=== PATIENT | female | born 1960 | race Caucasian/White ===

== ENCOUNTER → 2019-11-19 15:04 | Outpatient (CLI) | payer OTHER, SELFPAY ==
--- NOTE | ~2019-11-19 | MM_ITS ---
EXAMINATION: MM screening rodney BI w scott HISTORY: Screening mammogram TECHNIQUE: Craniocaudal and mediolateral oblique 3-D tomosynthesis images were obtained and synthetic 2-D images were generated. CAD analysis was submitted and interpreted. COMPARISON: 09/05/2018, 08/03/2017, 07/08/2016 bilateral digital screening mammogram examinations BREAST PARENCHYMAL COMPOSITION: The breasts are heterogeneously dense, which may obscure small masses . FINDINGS: Suggestion of possible architectural distortion in the upper aspect of each breast on MLO v iews. Recommend diagnostic bilateral mammogram and ultrasound examination. IMPRESSION: 1. Possible architectural distortion and upper aspect of breasts on MLO views 2. Diagnostic bilateral mammogram and ultrasound examination are recommended. BI-RADS Category 0: Incomplete: Needs additional imaging evaluation. Reviewed, dictated and finalized at location A.
== END ==
PROVIDERS: PCP Internal Medicine; Visit Provider Nurse Practitioner
DX: Z12.31 Encounter for screening mammogram for malignant neoplasm of breast (principal); R92.8 Other abnormal and inconclusive findings on diagnostic imaging of breast
CPT/HCPCS: 77063; 77067

== ENCOUNTER → 2019-12-09 08:29 | Outpatient (CLI) | payer OTHER, SELFPAY ==
--- NOTE | ~2019-12-09 | MMUS_ITS ---
EXAMINATION: MM diagnostic mammo BI, US breast BI complete HISTORY: Possible architectural distortion in upper aspect of the breasts on MLO projections on scree cameron mammogram of 11/19/2019 TECHNIQUE: Additional 3-D tomosynthesis images of both breasts were performed and synthetic 2-D image s were generated. CAD analysis was submitted and interpreted. High resolution bilateral complete [facility] [facility] ultrasound was performed. COMPARISON: 11/19/2019 bilateral digital screening mammogram FINDINGS: MAMMOGRAPHIC FINDINGS: Possible focal spiculated opacity is suggested in the upper inner left breast on MLO Tomosynthesis im age [age]. There is a history of prior benign excisional biopsy of the left breast in 2012. Scattered bilateral benign appearing calcifications. ULTRASOUND: Right breast: 2.4 mm cyst at 7:00 4 cm from nipple. Otherwise unremarkable examination of right breast Left breast: 1:00 2.5 cm from nipple: 3.4 x 5 x 6 mm cyst 3:00 5 cm from nipple: 3.4 x 4.6 mm cyst 3:00 5 cm from nipple: Small probable lymph node 4:00 4 cm from nipple: 2.4 x 2.9 x 3.4 mm cyst with through transmission and posterior enhancement IMPRESSION: 1. Probable postbiopsy change in the upper inner left breast 2. 6 month diagnostic left mammogram and left breast ultrasound follow-up are recommended. BI-RADS category 3, probably benign findings. Reviewed, dictated and finalized at location A. IMPRESSION: 1. Probable postbiopsy change in the upper inner left breast 2. 6 month diagnostic left mammogram and left breast ultrasound follow-up are r ecommended. BI-RADS category 3, probably benign findings.
== END ==
PROVIDERS: Visit Provider Obstetrics & Gynecology Gynecology
DX: R92.8 Other abnormal and inconclusive findings on diagnostic imaging of breast (principal)
CPT/HCPCS: 76641; 77066

== ENCOUNTER → 2020-06-15 14:10 | Outpatient (CLI) | payer OTHER, SELFPAY ==
--- NOTE | ~2020-06-15 | MMUS_ITS ---
EXAMINATION: MM diagnostic rodney LT w scott, US breast LT limited HISTORY: Six-month follow-up for probably benign left breast architectural distortion and masses TECHNIQUE: Craniocaudal, mediolateral, and mediolateral oblique 3-D tomosynthesis images of the left breast were performed and synthetic 2-D images were generated. CAD analysis was submitted and interpr eted. High resolution limited left breast ultrasound was performed. COMPARISON: 12/09/2019, 11/19/2019, 09/05/2018, 08/03/2017, 07/08/2016 BREAST PARENCHYMAL COMPOSITION: The breasts are heterogeneously dense, which may obscure small masses . FINDINGS: MAMMOGRAPHIC FINDINGS: Scattered benign-appearing calcifications are present. There is no evidence of suspicious mass, calci fication, or architectural distortion to suggest malignancy. There has been no suspicious interval c hange. ULTRASOUND: There are multiple hypoechoic masses in the upper outer quadrant of the breast which are stable to de creased in size. A 4 mm mass at the 4:00 location previously measured 3 mm but has an appearance chandrika lar to the other masses and is probably benign. IMPRESSION: 1. Probably benign left breast masses. 2. Recommend 6 month follow-up left diagnostic mammogram and ultrasound. BI-RADS category 3, probably benign findings. Reviewed, dictated and finalized at location A. FCASE SEWER IMPRESSION: 1. Probably benign left breast masses. 2. Recommend 6 month follow-up left diagnostic mammogram and ultrasound. BI-RADS category 3, probably benign findings.
== END ==
PROVIDERS: Visit Provider Obstetrics & Gynecology Gynecology
DX: R92.8 Other abnormal and inconclusive findings on diagnostic imaging of breast (principal)
CPT/HCPCS: 76642; 77061; 77065; G0279

== ENCOUNTER → 2020-06-19 00:11 | Outpatient (CLI) | payer OTHER, SELFPAY ==
[2020-06-19 22:51] LABS: SARS-CoV-2 RNA PCR Negative
== END ==
PROVIDERS: PCP Internal Medicine; Visit Provider Internal Medicine Gastroenterology
DX: Z01.812 Encounter for preprocedural laboratory examination (principal); Z20.822 Contact with and (suspected) exposure to COVID-19; R68.89 Other general symptoms and signs
CPT/HCPCS: C9803; U0003; U0005

== ENCOUNTER 2020-06-22 01:01 | Day surgery (SDC) | payer OTHER, SELFPAY ==
[2020-06-09 15:57] VITALS: BMI 28.9
[2020-06-22 06:30] VITALS: BP 137/85; PULSE 75; RESP 16; TEMP 36.2; O2SAT 100; BMI 28.0
[2020-06-22] MEDS: LACTATED RINGERS 1,000 ML 150 ML IV CONT (06:45)
--- NOTE | 2020-06-22 07:34 | WPDANESEPPF ---
Anes - Initial Pre Proc Eval Procedure: Operation Date: 06/22/20 08:00 Proposed Procedures p Screening Colonoscopy - Piero Chu MD Date/Time: 06/22/20 07:34 Surgeon: Piero Chu MD Pre Op Diagnosis: neoplasm screening, hx of colon polyps Patient Data Age: 60 Gender: F Height: 5 ft 6 in Weight: 78.9 kg Last Vital Signs Temp 97.1 F L 06/22/20 06:30 Pulse 75 06/22/20 06:30 Resp 16 06/22/20 06:30 BP 137/85 06/22/20 06:30 Pulse Ox 100 06/22/20 06:30 Allergies Allergy/AdvReac Type Severity Reaction Status Date / Time pollen extracts Allergy Mild Sneezing Verified 06/22/20 06:29 Home Medications Medication Instructions Recorded Confirmed Type cetirizine 10 mg tablet 10 mg PO DAILY 07/11/19 06/22/20 History lansoprazole 15 mg capsule,delayed 15 mg PO DAILY 07/11/19 06/22/20 History release omega-3 fatty acids 1,000 mg 1,000 mg PO DAILY 07/11/19 06/22/20 History capsule atorvastatin 20 mg tablet 20 mg PO DAILY #90 tablet 02/20/20 06/22/20 Rx sodium,potassium,mag sulfates See Rx Instructions .ROUTE 05/06/20 06/08/20 Rx [Suprep Bowel Prep Kit] .COMPLEX #1 ml levothyroxine 112 mcg tablet 112 mcg PO DAILY #90 tablet 05/20/20 06/22/20 Rx ascorbic acid (vitamin C) 1 g PO DAILY 06/09/20 06/22/20 History estradiol 0.5 mg PO DAILY 06/09/20 06/22/20 History medroxyprogesterone 2.5 mg PO DAILY 06/09/20 06/22/20 History uniuqdlbiwxm-Ax-jeyo-minerals 1 tablet PO DAILY 06/09/20 06/22/20 History [Women's Daily Multivitamin] Patient hx anesthesia problems: none Family hx anesthesia problems: none PMFSH Past Medical History Medical History (Updated 06/08/20 @ 11:00 by Misael Gilliam DO) Basal cell carcinoma Skin cancer Surgical History Surgical History Status post full thickness skin graft Family History Family History Sibling Malignant neoplasm of prostate Mother Family history of malignant neoplasm of breast in first degree relative Father Family history of coronary artery disease, Onset Age: 39 Acute myocardial infarction Other Family history of malignant neoplasm Social History Social History Smoking packs per day: 0.5 Smoking cigarettes per day: 10.0 Years smoked: 10 Smoking pack-years: 5.00 Smoking status: Former smoker Tobacco type: cigarettes Alcohol intake: current Drinks per week: 3 Alcohol use details: WINE Substance use: never Substance use type: does not use Living arrangements: with family Spiritual care concerns: No Anes - Eval Final PreProcedure Day of Procedure 06/22/20 07:34 Patient weight: overweight Heart: regular rate and rhythm Lungs: clear to auscultation Airway: Mallampati scale class II Neurological: alert and oriented Last oral intake: >/= 8 hours ASA classification: III Emergent: no Anesthetic plan: proceed Anesthesia type and monitoring: general GIVS and standard monitoring Informed Consent: The patient's anesthetic plan and its attendant risks and benefits were discussed with the patient/family/POA. Questions were solicited and answers provided to the satisfaction of the patient/family/POA.
--- NOTE | 2020-06-22 08:08 | PM.HPGS ---
History of Present Illness History of Present Illness Consent: Risks, benefits, and alternatives have been discussed and questions answered. Patient agrees to proceed with procedure. Chief complaint: neoplasm screening, hx of colon polyps Narrative: Addis Crockett is a 60 year old female with history of colon polyps, last colonoscopy 2016 Review of Systems Constitutional: Constitutional: Denies headache(s) and Denies weakness Eyes: Eyes: Denies blurry vision ENT: Reports Normal hearing present, Denies headache(s) and Denies neck pain Cardiovascular: Cardiovascular: Denies chest pain and Denies dyspnea Respiratory: Respiratory: Denies dyspnea Gastrointestinal: Gastrointestinal: Reports no additional gastrointestinal complaints Genitourinary: Genitourinary: Denies dysuria Musculoskeletal: Musculoskeletal: Denies neck pain Integumentary/Breasts: Skin/Breast: Denies dry skin Neurologic: Reports Normal hearing present, Denies headache(s) and Denies weakness Psychiatric: Psychiatric: Denies anxiety Endocrine: Endocrine: Denies change in body appearance Hematologic/Lymphatic: Hematologic/Lymphatic: Denies easy bleeding Allergic/Immunologic: Allergic/Immunologic: Denies urticaria PMF Past Medical History Medical History (Updated 06/22/20 @ 08:09 by Piero Chu MD) Adenomatous colon polyp Basal cell carcinoma Skin cancer Surgical History Surgical History Status post full thickness skin graft Family History Family History Sibling Malignant neoplasm of prostate Mother Family history of malignant neoplasm of breast in first degree relative Father Family history of coronary artery disease, Onset Age: 39 Acute myocardial infarction Other Family history of malignant neoplasm Social History Social History Smoking packs per day: 0.5 Smoking cigarettes per day: 10.0 Years smoked: 10 Smoking pack-years: 5.00 Smoking status: Former smoker Tobacco type: cigarettes Alcohol intake: current Drinks per week: 3 Alcohol use details: WINE Substance use: never Substance use type: does not use Living arrangements: with family Spiritual care concerns: No Meds Home Medications and Allergies Home Medications Medication Instructions Recorded Confirmed Type cetirizine 10 mg tablet 10 mg PO DAILY 07/11/19 06/22/20 History lansoprazole 15 mg capsule,delayed 15 mg PO DAILY 07/11/19 06/22/20 History release omega-3 fatty acids 1,000 mg 1,000 mg PO DAILY 07/11/19 06/22/20 History capsule atorvastatin 20 mg tablet 20 mg PO DAILY #90 tablet 02/20/20 06/22/20 Rx sodium,potassium,mag sulfates See Rx Instructions .ROUTE 05/06/20 06/08/20 Rx [Suprep Bowel Prep Kit] .COMPLEX #1 ml levothyroxine 112 mcg tablet 112 mcg PO DAILY #90 tablet 05/20/20 06/22/20 Rx ascorbic acid (vitamin C) 1 g PO DAILY 06/09/20 06/22/20 History estradiol 0.5 mg PO DAILY 06/09/20 06/22/20 History medroxyprogesterone 2.5 mg PO DAILY 06/09/20 06/22/20 History apjaismpqdhg-On-rbzv-minerals 1 tablet PO DAILY 06/09/20 06/22/20 History [Women's Daily Multivitamin] Allergies Allergy/AdvReac Type Severity Reaction Status Date / Time pollen extracts Allergy Mild Sneezing Verified 06/22/20 06:29 Vital Signs Vital Signs - 24 hr 06/22/20 06:30 Temperature 97.1 F L Pulse Rate 75 Respiratory Rate 16 Blood Pressure 137/85 Pulse Oximetry 100 Exam Const: General: comfortable and no acute distress HENMT: General nose exam: Normal nares present Eyes: General: appearance normal, both eyes and all related structures Neck: Neck: no JVD Resp: Auscultation: clear to auscultation bilaterally Cardio: Rate: regular rate Rhythm: regular rhythm GI: Inspection: non-distended GI Palp: Yes Soft to palpation S
[2020-06-22 08:38] VITALS: BP 102/67; PULSE 64; RESP 20; O2SAT 100
[2020-06-22 08:48] VITALS: BP 108/66; PULSE 61; RESP 19; O2SAT 100
[2020-06-22 08:58] VITALS: BP 123/73; PULSE 60; RESP 19; O2SAT 100
== END 2020-06-22 09:10 | disposition home or self-care (01) ==
PROVIDERS: PCP Internal Medicine; Visit Provider Internal Medicine Gastroenterology
PROC: 0DJD8ZZ Inspection of Lower Intestinal Tract, Via Natural or Artificial Opening Endoscopic (ICD-10-PCS; CPT 45378; principal; 2020-06-22 08:00)
DX: Z12.11 Encounter for screening for malignant neoplasm of colon (principal); D12.2 Benign neoplasm of ascending colon; D12.0 Benign neoplasm of cecum; D12.8 Benign neoplasm of rectum; K57.30 Diverticulosis of large intestine without perforation or abscess without bleeding; Z87.891 Personal history of nicotine dependence
CPT/HCPCS: 45385; 88305; C9803; J2001; J2704; J7120; U0003; U0005

== ENCOUNTER → 2020-12-11 08:26 | Outpatient (CLI) | payer OTHER, SELFPAY ==
--- NOTE | ~2020-12-11 | MMUS_ITS ---
EXAMINATION: MM diagnostic rodney BI w scott, US breast LT limited HISTORY: Six-month follow-up for probably benign left breast masses TECHNIQUE: Craniocaudal, mediolateral, and mediolateral oblique 3-D tomosynthesis images of the idris ts were performed and synthetic 2-D images were generated. CAD analysis was submitted and interpreted . High resolution limited left breast ultrasound was performed. COMPARISON: 06/15/2020, 12/09/2019, 11/19/2019, 09/05/2018 BREAST PARENCHYMAL COMPOSITION: The breasts are heterogeneously dense, which may obscure small masses . FINDINGS: MAMMOGRAPHIC FINDINGS: There is no evidence of suspicious mass, calcification, or architectural distortion in either breast to suggest malignancy. There has been no suspicious interval change. ULTRASOUND: There are multiple stable hypoechoic masses in the upper outer quadrant of the breast. The previously described mass at the 4:00 location is no longer evident. IMPRESSION: 1. Stable, probably benign left breast masses. 2. Given one year of interval stability, recommend 12 month followup left diagnostic mammogram and ul trasound. BI-RADS category 3, probably benign findings. Reviewed, dictated and finalized at location A. IMPRESSION: 1. Stable, probably benign left breast masses. 2. Given one year of interval stability, recommend 12 month followup left diagn ostic mammogram and ultrasound. BI-RADS category 3, probably benign findings.
== END ==
PROVIDERS: PCP Internal Medicine; Visit Provider Obstetrics & Gynecology Gynecology
DX: R92.8 Other abnormal and inconclusive findings on diagnostic imaging of breast (principal)
CPT/HCPCS: 76642; 77062; 77066; G0279

== ENCOUNTER → 2021-05-08 01:22 | Outpatient (CLI) | payer OTHER, SELFPAY ==
[2021-05-08 23:19] LABS: SARS-CoV-2 RNA PCR Positive
== END ==
PROVIDERS: PCP Internal Medicine; Visit Provider Internal Medicine
DX: U07.1 COVID-19 (principal)
CPT/HCPCS: C9803; U0003; U0005

== ENCOUNTER 2021-08-25 09:00 | Outpatient (RCR) | payer OTHER, SELFPAY ==
--- NOTE | 2021-07-30 13:40 | PTOPEVAL ---
PHYSICAL THERAPY INITIAL EVALUATION. Thank you for referring Addis Crockett to [facility].? The patient is scheduled to be seen for therapy? 1x/week for 4 weeks. Please review, sign, date and return this plan of care NEISHA. I agree with and certify that the following plan of care is medically necessary. Referring Physician Date Attending Provider: Misael Gilliam, DO Evaluation Information Diagnosis Neck pain Onset 2+ years Subjective Information Pt states she has nerve pain Query Text:As Reported By Patient/ that is centralized to the Family cervical spine and shoulder on the R side. She denies numbness or tingling, or any symptoms into her hand. 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 Pt reports headaches semi frequently but cannot differentiate the difference between cervicogenic headaches compared to sinus pressure. She reports achy feeling in the arm and shoulder with repetitive movement, like mixing fudge. Pain Assessment Right Neck Reported Pain Level 4 Pain Description Aching,Tightness Pain Radiation Right Arm,Right Shoulder Pain Frequency Chronic Lowest Pain Intensity 1 Greatest Pain Intensity 4 Other Pain Aggravating Factors mixing while baking Cervical and Lumbar ROM Cervical Flexion (0-60) 38 active Cervical Extension (0-70) 22 active Cervical Lateral Flexion Right (0-50) 32 active Cervical Lateral Flexion Right (0-50) 45 passive Cervical Lateral Flexion Left (0-50) 25 active Cervical Lateral Flexion Left (0-50) 45 passive Cervical Rotation Right (0-90) 72 active Cervical Rotation Left (0-90) 68 active Cervical ROM 75% of Normal Cervical ROM Comments cues to avoid shoulder elevation during lateral flexion Upper Extremity Range of Motion General Upper Extremity Range of Motion WFL/Left,WFL/Right Gross Upper Extremity Range of Motion Equal on both side, mildly Comments limited but functional Upper Extremity Muscle Strength Testing General Upper Extremity Strength WFL/Left,WFL/Right Gross Upper Extremity Strength Comments Equal on both side, mildly limited but functional Po
--- NOTE | 2021-08-25 10:15 | PTOPEVAL ---
PHYSICAL THERAPY PROGRESS REPORT AND DISCHARGE SUMMARY. Thank you for referring Addis Crockett to [facility].? The patient is scheduled to be discharge from therapy services at this time. Please review, sign, date and return this plan of care NEISHA. I agree with and certify that the following plan of care is medically necessary. Referring Physician Date Attending Provider: Misael Gilliam, Evaluation Information Diagnosis Neck pain Onset 2+ years Subjective Information Pt states her arm and neck are Query Text:As Reported By Patient/ feeling better. She states Family her arm will still get sore sometimes but this had decreased. She reports good compliance with her HEP. Pt states her headaches have improved a lot. Pain Assessment Right Neck Reported Pain Level 3 Greatest Pain Intensity 4 Cervical and Lumbar ROM Cervical ROM Cervical Flexion (0-60) 47 active Cervical Extension (0-70) 40 active Cervical Lateral Flexion Right (0-50) 32 active Cervical Lateral Flexion Right (0-50) 45 passive Cervical Lateral Flexion Left (0-50) 26 active Cervical Lateral Flexion Left (0-50) 45 passive Cervical Rotation Right (0-90) 74 active Cervical Rotation Left (0-90) 70 active Cervical ROM 75% of Normal Cervical ROM Comments cues to avoid shoulder elevation during lateral flexion Upper Extremity Range of Motion General Upper Extremity Range of Motion WFL/Left,WFL/Right Gross Upper Extremity Range of Motion Equal on both side, mildly Comments limited but functional Upper Extremity Muscle Strength Testing General Upper Extremity Strength WFL/Left,WFL/Right Gross Upper Extremity Strength Comments Equal on both side, mildly limited but functional Posture Head/C-Spine Posture Forward Head Thoracic Spine Posture Neutral Lumbar Spine Posture Neutral Shoulder Posture (L) Forward,(R) Forward PT Clinical Summary Addis presents to therapy today for her progress report following 4 visits of skilled physical therapy. Today she reports decreased frequency and intensity of headaches, improvement in cervical ROM, and improved postural awareness. She is progressing well with all of her therapy goals and would like to
== END 2021-08-26 09:24 | disposition home or self-care (01) ==
LOC: ANHPT 09:00
PROVIDERS: PCP Internal Medicine; Referring Provider Internal Medicine; Visit Provider Internal Medicine
DX: M54.2 Cervicalgia (principal); G89.29 Other chronic pain; E78.5 Hyperlipidemia, unspecified; Z79.899 Other long term (current) drug therapy
CPT/HCPCS: 97110; 97140; 97161

== ENCOUNTER → 2022-03-01 07:56 | Outpatient (CLI) | payer OTHER, SELFPAY ==
--- NOTE | ~2022-03-01 | MMUS_ITS ---
EXAMINATION: MM diagnostic rodney BI w scott, US breast BI complete HISTORY: 12 month follow-up is stable probably benign left breast masses TECHNIQUE: Full field and spot ML, MLO and CC 3-D tomosynthesis images of both breasts were performed and synthetic 2-D images were generated. CAD analysis was submitted and interpreted. High resolution complete bilateral breast ultrasound examination including all 4 quadrants and subareolar areas was performed. COMPARISON: 12/11/2020 bilateral diagnostic mammography and limited left breast ultrasound 06/15/2020 diagnostic left mammogram and limited left breast ultrasound 12/09/2019 bilateral diagnostic mammography and bilateral complete breast ultrasound 11/19/2019, 09/05/2018 bilateral screening mammogram examinations BREAST PARENCHYMAL COMPOSITION: The breasts are heterogeneously dense, which may obscure small masses . FINDINGS: MAMMOGRAPHIC FINDINGS: There are numerous microcalcifications scattered in both breasts, including occasional calcified micr ohematomas and numerous punctate benign appearing microcalcifications. No suspicious reproducible mass, architectural distortion, malignant calcification, skin thickening o r retraction is detected. No significant new or developing density is identified. ULTRASOUND: No suspicious irregular mass or shadowing of either breast is noted. Right breast: 3:00 3 cm from nipple: 4.2 x 4.1 x 4.7 mm circumscribed hypoechoic lesion without posterior shadowing Left breast: 2:00 3 cm from nipple: 2.8 x 3.1 mm sonolucency 3:00 6 cm from nipple: Circumscribed 3.4 x 3.8 mm hypoechoic lesion without posterior shadowing 10:00 5 cm from nipple: 3.2 x 2.2 mm sonolucency without posterior shadowing Subareolar area: 5.6 x 4.9 x 4.2 mm sonolucency with through transmission, consistent with small cyst IMPRESSION: 1. Probable benign findings 2. 6 month bilateral follow-up ultrasound examination is recommended to document stability BI-RADS category 3, probably benign findings. Reviewed, dictated and finalized at location A. TENDER IMPRESSION: 1. Probable benign findings 2. 6 month bilateral follow-up ultrasound examination is recommended to documen t stability BI-RADS category 3, probably benign findings.
== END ==
PROVIDERS: PCP Internal Medicine; Visit Provider Obstetrics & Gynecology Gynecology
DX: R92.8 Other abnormal and inconclusive findings on diagnostic imaging of breast (principal)
CPT/HCPCS: 76641; 77062; 77066; G0279

== ENCOUNTER → 2022-06-02 08:55 | Outpatient (CLI) | payer OTHER, SELFPAY ==
--- NOTE | ~2022-06-02 | DEXA_ITS ---
Bone Density Report Name: FELIZ GUERRERO Age: 62 Sex: Female Ethnicity: White Date of : 1960 Indication: postmenopausal; screening for osteoporosis; height loss; Referring Provider: Chago, Caron Study: Bone densitometry was performed. Exam Date: June 02, 2022 Accession number: [id number] Bone Density: Region BMD T-score Z-score Classification AP Spine (L1-L4) 0.971 -0.7 0.8 Normal Femoral Neck (Left) 0.711 -1.2 0.1 Osteopenia Total Hip (Left) 1.020 0.6 1.6 Normal Femoral Neck (Right) 0.752 -0.9 0.5 Normal Total Hip (Right) 0.999 0.5 1.5 Normal Total Hip Mean 1.010 0.6 1.6 Normal World Health Organization criteria for BMD impression classify patients as: Normal (T-score at or above -1.0), Osteopenia (T-score between -1.0 and -2.5), or Osteoporosis (T-score at or below -2.5). 10-year Fracture Risk(1): Major Osteoporotic Fracture 7.4% Hip Fracture 0.5% Reported Risk Factors: [place] (), Neck BMD=0.711, BMI=29.9 (1) FRAX(R) Version 3.08. Fracture probability calculated for an untreated patient. Fracture probability may be lower if the patient has received treatment. Clinical Information Provided by Patient: Has used the following medications: HRT (i.e. estrogen/hormone therapy), MTV, LEVOTHYROXINE Patient maximum height was 67.0 Menopause Age: 49 Drinks caffeinated beverages Onset of menses at age 14 Number of children 0 Impression: The patient has low bone mass, based on the Left Femoral Neck T-score. The patient has an estimated ten-year risk of hip fracture of 0.5% and an estimated ten-year risk of major fracture of 7.4%, based on the WHO FRAX algorithm. Discussion: BONE DENSITY IS LOW AT ONE OR MORE SKELETAL SITES. This patient's lowest T-score is low at one or more skeletal sites. It meets the World Health Organization's (WHO) criteria for ?low bone mass? (T-score between -1.0 and -2.5). The patient's 10-year risk of fracture as calculated by FRAX is less than the threshold where pharmacological therapy is recommended by the National Osteoporosis Foundation (NOF). However, all treatment decisions require clinical judgment and consideration of individual patient factors, including patient preferences, comorbidities, previous drug use, risk factors not captured in the FRAX model (e.g., frailty, falls, vitamin D deficiency, increased bone turnover, interval significant decline in bone density) and possible under or overestimation of fracture risk by FRAX. The patient should follow a healthful lifestyle (good nutrition with adequate calcium and vitamin D, and appropriate weight-bearing exercise). Follow-Up: Consider repeating this study in 2 to 3 years to reassess this patient's status, or sooner if there is some new clinical indication. Reported
== END ==
PROVIDERS: PCP Internal Medicine; Visit Provider Nurse Practitioner
DX: Z13.820 Encounter for screening for osteoporosis (principal); M85.852 Other specified disorders of bone density and structure, left thigh
CPT/HCPCS: 77080

== ENCOUNTER 2023-09-11 00:34 | Day surgery (SDC) | payer OTHER, SELFPAY ==
[2023-09-11 09:15] VITALS: BP 153/84; PULSE 64; RESP 18; TEMP 36.2; O2SAT 100
[2023-09-11] MEDS: LACTATED RINGERS 1,000 ML 150 ML IV CONT (09:26)
--- NOTE | 2023-09-11 09:34 | WPDANESEPPF ---
Anes - Initial Pre Proc Eval Procedure: Operation Date: 09/11/23 10:30 Proposed Procedures p Colonoscopy - Piero Chu MD Date/Time: 09/11/23 09:34 Surgeon: Piero Chu MD Pre Op Diagnosis: Personal history colon polyps Patient Data Age: 63 Gender: F Height: 1.65 m Weight: 83.2 kg Last Vital Signs Temp 97.1 F L 09/11/23 09:15 Pulse 64 09/11/23 09:15 Resp 18 09/11/23 09:15 BP 153/84 H 09/11/23 09:15 Pulse Ox 100 09/11/23 09:15 O2 Del Method Room Air 09/11/23 09:15 Allergies Allergy/AdvReac Type Severity Reaction Status Date / Time cat dander Allergy Mild Swelling Verified 09/11/23 09:14 of Lip/Tongue/Throat pollen extracts Allergy Mild Sneezing Verified 09/11/23 09:14 Home Medications Medication Instructions Recorded Confirmed Type cetirizine 10 mg tablet (Zyrtec) 10 mg PO DAILY 07/11/19 09/04/23 History lansoprazole 15 mg capsule,delayed 15 mg PO DAILY 07/11/19 09/04/23 History release (Prevacid 24Hr) omega-3 fatty acids 1,000 mg 1,000 mg PO DAILY 07/11/19 09/04/23 History capsule (Fish Oil Concentrate) ascorbic acid (vitamin C) 1,000 mg 1 g PO DAILY 06/09/20 09/04/23 History tablet estdvzgmbrvl-Jg-jlhd-minerals 18 1 tablet PO DAILY 06/09/20 09/04/23 History mg-0.4 mg tablet atorvastatin 20 mg tablet See Rx Instructions .Route 07/01/22 09/04/23 Rx .COMPLEX #90 tabs levothyroxine 112 mcg tablet 112 mcg PO DAILY #90 tabs 06/20/23 09/04/23 Rx aspirin 81 mg tablet 81 mg PO DAILY 09/04/23 09/04/23 History Patient hx anesthesia problems: none Family hx anesthesia problems: none Results Review: All pre-operative results and documents have been reviewed as part of the pre-operative evaluation. [facility] Past Medical History Medical History Adenomatous colon polyp Basal cell carcinoma COVID-19 History of skin cancer Hx of colonic polyps Skin cancer Surgical History Surgical History Status post full thickness skin graft Family History Family History Sibling Malignant neoplasm of prostate Mother Family history of malignant neoplasm of breast in first degree relative Father Family history of coronary artery disease, Onset Age: 39 Acute myocardial infarction Other Family history of malignant neoplasm Social History Social History Smoking packs per day: 0.5 Smoking cigarettes per day: 10.0 Years smoked: 10 Smoking pack-years: 5.00 Smoking status: Former smoker Tobacco type: cigarettes Alcohol intake: current Drinks per week: 4 Alcohol use details: WINE Substance use: never Substance use type: does not use Living arrangements: with family Spiritual care concerns: No Anes - Eval Final PreProcedure Day of Procedure 09/11/23 09:34 Patient weight: normal Heart: regular rate and rhythm Lungs: clear to auscultation Airway: Mallampati scale class II Neurological: alert and oriented Last oral intake: >/= 8 hours ASA classification: III Emergent: no Anesthetic plan: proceed Anesthesia type and monitoring: general GIVS and standard monitoring Results Review: All pre-operative results and documents have been reviewed as part of the pre-operative evaluation. Informed Consent: The patient's anesthetic plan and its attendant risks and benefits were discussed with the patient/family/POA. Questions were solicited and answers provided to the satisfaction of the patient/family/POA.
--- NOTE | 2023-09-11 10:02 | PM.HPGS ---
History of Present Illness History of Present Illness Consent: Risks, benefits, and alternatives have been discussed and questions answered. Patient agrees to proceed with procedure. Chief complaint: Personal history colon polyps Narrative: Addis Crockett is a 63 year old female with colon polyps 3 years ago Review of Systems Review of Systems: All systems reviewed & are unremarkable except as noted in HPI and below PMFSH Past Medical History Medical History Adenomatous colon polyp Basal cell carcinoma COVID-19 History of skin cancer Hx of colonic polyps Skin cancer Surgical History Surgical History Status post full thickness skin graft Family History Family History Sibling Malignant neoplasm of prostate Mother Family history of malignant neoplasm of breast in first degree relative Father Family history of coronary artery disease, Onset Age: 39 Acute myocardial infarction Other Family history of malignant neoplasm Social History Social History Smoking packs per day: 0.5 Smoking cigarettes per day: 10.0 Years smoked: 10 Smoking pack-years: 5.00 Smoking status: Former smoker Tobacco type: cigarettes Alcohol intake: current Drinks per week: 4 Alcohol use details: WINE Substance use: never Substance use type: does not use Living arrangements: with family Spiritual care concerns: No Meds Home Medications and Allergies Home Medications Medication Instructions Recorded Confirmed Type cetirizine 10 mg tablet (Zyrtec) 10 mg PO DAILY 07/11/19 09/04/23 History lansoprazole 15 mg capsule,delayed 15 mg PO DAILY 07/11/19 09/04/23 History release (Prevacid 24Hr) omega-3 fatty acids 1,000 mg 1,000 mg PO DAILY 07/11/19 09/04/23 History capsule (Fish Oil Concentrate) ascorbic acid (vitamin C) 1,000 mg 1 g PO DAILY 06/09/20 09/04/23 History tablet swcbwbjbihkb-Yf-pvpb-minerals 18 1 tablet PO DAILY 06/09/20 09/04/23 History mg-0.4 mg tablet atorvastatin 20 mg tablet See Rx Instructions .Route 07/01/22 09/04/23 Rx .COMPLEX #90 tabs levothyroxine 112 mcg tablet 112 mcg PO DAILY #90 tabs 06/20/23 09/04/23 Rx aspirin 81 mg tablet 81 mg PO DAILY 09/04/23 09/04/23 History Allergies Allergy/AdvReac Type Severity Reaction Status Date / Time cat dander Allergy Mild Swelling Verified 09/11/23 09:14 of Lip/Tongue/Throat pollen extracts Allergy Mild Sneezing Verified 09/11/23 09:14 Vital Signs Vital Signs - 24 hr 09/11/23 09:15 Temperature 97.1 F L Pulse Rate 64 Respiratory Rate 18 Blood Pressure 153/84 H Pulse Oximetry 100 Oxygen Delivery Room Air Exam Const: General: comfortable and no acute distress HENMT: Face/Nose/Sinus: Normal nares present Eyes: General: appearance normal, both eyes and all related structures Neck: Neck: no JVD Resp: Auscultation: clear to auscultation bilaterally Cardio: Rate: regular rate Rhythm: regular rhythm GI: Inspection: non-distended GI Palp: Yes Soft to palpation Skin: General skin exam: normal color Neuro: General: gait normal Speech: normal speech Extrem: General: normal to inspection Psych: Mental Status: mental status grossly normal Assessment and Plan Assessment and plan (1) Hx of colonic polyps: Code(s): Z86.010 - Personal history of colonic polyps Status: Acute Assessment and Plan: colonoscopy
[2023-09-11 10:18] VITALS: BP 103/62; PULSE 65; RESP 18; O2SAT 99
[2023-09-11 10:28] VITALS: BP 105/63; PULSE 60; RESP 18; O2SAT 100
[2023-09-11 10:38] VITALS: BP 105/63; PULSE 60; RESP 18; O2SAT 100
== END 2023-09-11 10:47 | disposition home or self-care (01) ==
PROVIDERS: Visit Provider Internal Medicine Gastroenterology
PROC: 0DJD8ZZ Inspection of Lower Intestinal Tract, Via Natural or Artificial Opening Endoscopic (ICD-10-PCS; CPT 45378; principal; 2023-09-11 10:30)
DX: Z12.11 Encounter for screening for malignant neoplasm of colon (principal); K57.30 Diverticulosis of large intestine without perforation or abscess without bleeding; Z79.82 Long term (current) use of aspirin; Z98.890 Other specified postprocedural states; Z87.891 Personal history of nicotine dependence; Z86.010 Personal history of colon polyps; Z85.828 Personal history of other malignant neoplasm of skin; Z80.42 Family history of malignant neoplasm of prostate; Z80.3 Family history of malignant neoplasm of breast; Z82.49 Family history of ischemic heart disease and other diseases of the circulatory system
CPT/HCPCS: 45378; J2704; J7120

== ENCOUNTER 2024-10-21 11:31 | Inpatient (IN) | payer OTHER, SELFPAY ==
[2024-10-21] VITALS (12 sets, daily range): BP systolic 112–147; BP diastolic 65–90; PULSE 60–78; RESP 16–20; TEMP 36.6–36.7; O2SAT 97–100; BMI 29.4
--- NOTE | ~2024-10-21 | XR_ITS ---
XR chest 2V Ordering provider: Ida Roldan III, DO History: 64 years Female with . CP . Comparison: None. FINDINGS: MEDIASTINUM: The cardiac silhouette is not enlarged. LUNGS: No infiltrates, effusions or pneumothorax. OTHER: No free air under the diaphragm. IMPRESSION: No acute cardiopulmonary pathology. Reviewed, dictated and finalized at location A.
--- NOTE | 2024-10-21 11:34 | ECG_ITS ---
Test Date: 2024-10-21 11:38:06 Measurements Intervals [place] Rate: 79 P: 46 WA: 162 QRS: 77 QRSD: 91 T: 52 QT: 353 QTc: 406 Interpretive Statements SINUS RHYTHM NORMAL ECG No previous ECG available for comparison Electronically Signed On 10-21-2024 11:53:30 CDT by George Moody D.O.
[2024-10-21 11:55] LABS: Hematocrit 42.6 % (37.0-47.0); Hemoglobin 14.3 g/dL (12.0-15.0); Immature Granulocyte Percent A 0.2 % (0-0.5); Lymphocytes Absolute Auto 1.13 K/mm3 (0.9-3.2); Mean Corpuscular HGB Conc 33.6 g/dl (32-36); Mean Corpuscular Hemoglobin 29.9 pg (26-34); Mean Corpuscular Volume 89.1 fl (80-100); Nucleated Red Blood Cells Absolute Auto 0.000 K/mm3 (0.0-0.012); Nucleated Red Blood Cells Perc 0.0 % (0.0-0.2); Platelet Count Result 273 k/mm3 (150-375); Red Blood Count 4.78 M/mm3 (4.2-5.4); White Blood Count 5.3 K/mm3 (4.5-10.0)
--- OUTSIDE RECORDS SUMMARY | 2024-10-21 11:55 | XMS_ITS | Clinical Summary ---
Author Organization [facility] Address [address] [place] [address] Care Team Providers Care Terminal Carman Name Role Phone Angelo Stewart MD Primary Care Provider [phone] Source Comments [facility],non-[facility] Affiliates and Associated Physician Practices is amultiple site organization consisting of ambulatory clinics and hospital sitesin [place], [place], [place] and [place]. This disclosure is being madepursuant to the Care Everywhere program and may not contain all information available regarding this patient. 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 Gender Identity Not on file Sexual Orientation Not on file Plan of Treatment Health Maintenance Due Date Last Done Comments COLOGUARD (AGES 45-75) - COL ON CA SCREENING 1961 COLON MONITORING 1961 COLONOSCOPY - COLON CA SCREENING 1961 CT COLONOGRAPHY - COLON CA SCREENING 1961 Colorectal Cancer Screening 1961 FIT - COLON CA SCREENING 1961 FLEX SIG - COLON CA SCREENING 1961 LIPID TESTING 1961 MAMMOGRAM 1961 HIV SCREENING 1976 HEPATITIS C SCREENING 05/03/1979 DTAP/TDAP/TD VACCINES (1 - Tdap) 1980 PAP SMEAR 1982 PNEUMOCOCCAL VACCINE 50+ (1 of 1 - PCV) 2011 ZOSTER VACCINE (1 of 2) 2011 COVID-19 VACCINE (1 - 4-2 5 season) 2023 DEPRESSION SCREENING 04/24/2024 INFLUENZA VACCINE (Season Ended) 2024 Respiratory Syncytial Virus (RSV) Vaccine Pt: or over 60 yrs (1 - 1-dose 75+ series) 2036 HEPATITIS B VACCINE Aged Out No longe r eligible based on patient's age to complete this topic HIB VACCINE Aged Out No longer eligi ble based on patient's age to complete this topic HPV VACCINE Aged Out No longer eligi ble based on patient's age to complete this topic MENINGOCOCCAL (Group B) VACC INE SHARED DECISION-MAKING Aged Out No longer eligibl e based on patient's age to complete this topic MENINGOCOCCAL GROUPS A/C/Y/W VACCINE Aged Out No longer eligible b ased on patient's age to complete this topic Insurance [employer] Care Teams Terminal Carman Relationship Specialty Start Date End Date Angelo Stewart MD [address] [place] [address] PCP - General 02/04/08
--- OUTSIDE RECORDS SUMMARY | 2024-10-21 11:55 | XMS_ITS | Encounter Summary ---
Author Organization [facility] Address [address] [place] [address] Care Team Providers Care Manager Strategic Alliances Name Role Phone Angelo Stewart MD Primary Care Provider [phone] Encounter Details Date Type Department Care Team (Late st Contact Info) Description 09/23/2021 Lab Requisition 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 DermPath Lab Received: 09/23/2021 01:49 PM Pathologist: David Santana MD Specimen: Skin, left posterior deltoid 06/03/202 2 3:43 PM CDT DERMATOPATHOLOGY LABORATORY Final Diagnosis Specimen A. 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 2 3:43 PM CDT DERMATOPATHOLOGY LABORATORY Gross Description Specimen A: Received is one formalin filled container labeled with the patient's name and designated left posterior deltoid. The specimen consists of a shave biopsy measuring 2b2f2tz. Jar 0. 2 3:43 PM CDT DERMATOPATHOLOGY LABORATORY Microscopic Description Specimen A. SKIN, left posterior deltoid: There is acanthosis of the epidermis consisting of uniform cells with pale cytoplasm, a diminished granular layer and overlying parakeratosis with neutrophils. 2 3:43 PM CDT DERMATOPATHOLOGY LABORATORY Disclaimer An external and internal positive and negative controls are appropriate for the histochemical, immunohistochemical and immunofluorescence stain(s) in this case (if any), except where stated explicitly. The performance characteristics of the stain(s) cited in this report were developed and its performance characteristic determined by the Dermatopathology Laboratory at [facility], directed by Dr. Jennifer Santana. These tests need not be, and therefore are not, approved by the [place] Food and Drug Administration. The tests are used for clinical purposes. Billing Codes Specimen Charges Stain Charges 72158 1 2 3:43 PM CDT DERMATOPATHOLOGY LABORATORY Embedded Images 2 3:43 PM CDT DERMATOPATHOLOGY LABORATORY Pathology/Cytolog y TISSUE SPECIMEN FROM SKIN / Unknown 09/22/2021 09/23/2021 1:49 PM CDT Bethel Wheat MD LAB - PATHOLOGY/CYTOLOGY ORD ERABLES Final Result DERMATOPATHOLOGY LABORATORY [facility] - Department of Dermatology [facility] Medicine [address] [place] [address], [address] [phone] documented in this encounter Visit Diagnoses Not on filedocumented in this encounter Care Teams Manager Strategic Alliances Relationship Specialty Start Date End Date Angelo Stewart MD [address] [place] [address] PCP - General 02/04/08 documented as of this encounter
--- OUTSIDE RECORDS SUMMARY | 2024-10-21 11:55 | XMS_ITS | Encounter Summary ---
Author Organization [facility] Address [address] [place] [address] Care Team Providers Care Dowel Inserting Machine Operator Name Role Phone Angelo Stewart MD Primary Care Provider [phone] Encounter Details Date Type Department Care Team (Late st Contact Info) Description 08/09/2021 Lab Requisition [facility] DermPath Lab [address] [place] [phone] [place] [address] Social History Tobacco Use Types Packs/Day Years Used Date Smoking Tobacco: Never Assessed Comments Unknown Sex and Gender Information Value Date Recorded Sex Assigned at Not on file 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[employer] [facility] Gender Identity Not on file Sexual Orientation Not on file documented as of this encounter Plan of Treatment Not on file documented as of this encounter Procedures Procedure Name Priority Date/Time Associated Diagnosis Comments DERMATOPATHOLOGY Routine 08/06/2021 3:33 AM CDT documented in this encounter Results * DERMATOPATHOLOGY (08/06/2021 3:33 AM CDT) Case Report Dermatopathology Report Case: [id number] Authorizing Provider: Bethel Wheat MD Collected: 08/06/2021 03:33 AM Ordering Location: [facility] DermPath Lab Received: 08/09/2021 01:43 PM Pathologist: Aliyah [place] MD Specimen: Skin, toe nail 5:41 PM CDT DERMATOPATHOLOGY LABORATORY Final Diagnosis Specimen A. SKIN, toe nail: COMPACT KERATIN CONSISTENT WITH NAIL PLATE (L60.8) 2 5:41 PM CDT DERMATOPATHOLOGY LABORATORY at 1741 CDT Clinical History R/O onychomycosis 2 5:41 PM CDT DERMATOPATHOLOGY LABORATORY Gross Description Specimen A: Received is one formalin filled container labeled with the patient's name and designated toe nail. The specimen consists of a nail clipping measuring 7x2x1,6x2x1, and 6x2x1 mm. 2 5:41 PM CDT DERMATOPATHOLOGY LABORATORY Microscopic Description Specimen A. SKIN, toe nail: Sections show nail plate. Periodic acid-Wilner (PAS) stained sections do not highlight fungal organisms. 2 5:41 PM CDT DERMATOPATHOLOGY LABORATORY Disclaimer An external and internal positive and negative controls are appropriate for the histochemical, immunohistochemical and immunofluorescence stain(s) in this case (if any), except where stated explicitly. The performance characteristics of the stain(s) cited in this report were developed and its performance characteristic determined by the Dermatopathology Laboratory at [facility], directed by Dr. Jennifer Santana. These tests need not be, and therefore are not, approved by the [place] Food and Drug Administration. The tests are used for clinical purposes. Billing Codes Specimen Charges Stain Charges 67972 1 74636 1 2 5:41 PM CDT DERMATOPATHOLOGY LABORATORY Embedded Images 2 5:41 PM CDT DERMATOPATHOLOGY LABORATORY Pathology/Cytolo gy TISSUE SPECIMEN FROM SKIN / Unknown 08/06/2021 3:33 AM CDT 08/09/2021 1:43 PM CDT us Bethel Wheat MD LAB - PATHOLOGY/CYTOLOGY ORD ERABLES Final Result DERMATOPATHOLOGY LABORATORY [facility] - Department of Dermatology [address], [address] [phone] documented in this encounter Visit Diagnoses Not on filedocumented in this encounter Care Teams Dowel Inserting Machine Operator Relationship Specialty Start Date End Date Angelo Stewart MD [address] [place] [address] PCP - General 02/04/08 documented as of this encounter
--- OUTSIDE RECORDS SUMMARY | 2024-10-21 11:55 | XMS_ITS | Encounter Summary ---
Author Organization [facility] Address 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
--- OUTSIDE RECORDS SUMMARY | 2024-10-21 11:55 | XMS_ITS | Encounter Summary ---
Author Organization [facility] Address 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
--- OUTSIDE RECORDS SUMMARY | 2024-10-21 11:55 | XMS_ITS | Encounter Summary ---
Author Organization [facility] Address [address] [place] [address] Care Team Providers Care Control Room Supervisor Name Role Phone Angelo Stewart MD Primary Care Provider [phone] Encounter Details Date Type Department Care Team (Late st Contact Info) Description 03/08/2018 Lab Requisition [facility] [address] [facility] [place] [address] [place] [address] Social History Tobacco Use Types Packs/Day Years Used Date Smoking Tobacco: Never Assessed Comments Unknown Sex and Gender Information Value Date Recorded Sex Assigned at Not on file Legal Sex Female 6:21 PM ACCOUNTS RECEIVABLE ANALYST Gender Identity Not on file Sexual Orientation Not on file documented as of this encounter Plan of Treatment Not on file documented as of this encounter Procedures Procedure Name Priority Date/Time Associated Diagnosis Comments DERMATOPATHOLOGY Routine 03/07/2018 12:0 0 AM ACCOUNTS RECEIVABLE ANALYST documented in this encounter Results * DERMATOPATHOLOGY (03/07/2018 12:00 AM ACCOUNTS RECEIVABLE ANALYST) Case Report Dermatopathology Report Case: [id number] Authorizing Provider: Bethel Wheat MD Collected: 03/07/2018 12:00 AM Pathologist: Ninfa Caruso MD Received: 03/08/2018 12:21 PM Specimens: A) - Skin, right upper lat back B) - Skin, right mid back C) - Skin, right side abd 8 10:30 AM ACCOUNTS RECEIVABLE ANALYST DERMATOPATHOLOGY LABORATORY Final Diagnosis Specimen A. SKIN, right upper lat back: FIBROMA (D21.9) (see microscopic description) Specimen B. SKIN, right mid back: LENTIGINOUS MELANOCYTIC NEVUS, COMPOUND TYPE, IRRITATED (COMPOUND MELANOCYTIC NEVUS WITH ARCHITECTURAL DISORDER) (D22.5) Specimen C. SKIN, right side abd: LENTIGINOUS MELANOCYTIC NEVUS, COMPOUND TYPE, IRRITATED (COMPOUND MELANOCYTIC NEVUS WITH ARCHITECTURAL DISORDER) (D22.5) 8 10:30 AM [facility] DERMATOPATHOLOGY LABORATORY at [address] [facility] Clinical History A-C: R/O dys nevus. 8 10:30 AM [facility] DERMATOPATHOLOGY LABORATORY Gross Description Specimen A: Received is one formalin filled container labeled with the patient's name and designated right upper lat back. The specimen consists of a shave biopsy measuring [id number]. Jar 0. Specimen B: Received is one formalin filled container labeled with the patient's name and designated right mid back. The specimen consists of a shave biopsy measuring [id number]. Jar 0. Specimen C: Received is one formalin filled container labeled with the patient's name and designated right side abd. The specimen consists of a shave biopsy measuring [id number]. Jar 0. 8 10:30 AM [facility] DERMATOPATHOLOGY LABORATORY Microscopic Description Specimen A. SKIN, right upper lat back: This dome-shaped lesion contains dilated blood vessels, coarse collagen bundles, and stellate fibroblasts. There is overlying epidermal hyperplasia with prominent basilar pigmentation. Additional deeper sections were obtained and reviewed. MART-1/Melan A highlight a regular distribution of melanocytes along the basal layer. Specimen B. SKIN, right mid back: This is a compound nevus. There is melanin pigment in the stratum corneum. There is architectural disorder characterized by a lentiginous proliferation of melanocytes between irregular nevus nests of cells along the dermal epidermal junction. There is underlying fibroplasia of the papillary dermis. The intradermal component is bland in appearance and matures with depth. (Compound Orlando's Nevus or Compound Dysplastic Nevus) Specimen C. SKIN, right side abd: This is a compound nevus. There is melanin pigment in the stratum corneum. There is architectural disorder characterized by a lentiginous proliferation of melanocytes between irregular nevus nests of cells along the dermal epidermal junction. There is underlying fibroplasia of the papillary dermis. The intradermal component is bland in appearance and matures with depth. (Compound Orlando's Nevus or Compound Dysplastic Nevus) 8 10:30 AM [facility] DERMATOPATHOLOGY LABORATORY Disclaimer An external and internal positive and negative controls are appropriate for the histochemical, immunohistochemical and immunofluorescence stain(s) in this case (if any), except where stated explicitly. The performance characteristics of the stain(s) cited in this report were developed and its performance characteristic determined by the Dermatopathology Laboratory at [facility]. These tests need not be, and therefore are not, approved by the [place] Food and Drug Administration. The tests are used for clinical purposes. Billing Codes Specimen Charges Stain Charges 41219 93193 39110 1 1 1 [id number] 1 8 10:30 AM [facility] DERMATOPATHOLOGY LABORATORY Embedded Images 8 10:30 AM ACCOUNTS RECEIVABLE ANALYST DERMATOPATHOLOGY LABORATORY Pathology/Cytology TISSUE SPECIMEN FROM SKIN / Unknown 03/07/2018 03/08/2018 12:21 PM ACCOUNTS RECEIVABLE ANALYST Miscellaneous samples (specimen) TISSUE SPECIMEN FROM SKIN / Unknown 03/07/2018 03/08/2018 12:21 PM ACCOUNTS RECEIVABLE ANALYST Miscellaneous samples (specimen) TISSUE SPECIMEN FROM SKIN / Unknown 03/07/2018 03/08/2018 12:21 PM ACCOUNTS RECEIVABLE ANALYST Bethel Wheat MD LAB - PATHOLOGY/CYTOLOGY ORD ERABLES Final Result DERMATOPATHOLOGY LABORATORY [facility] - Department of Dermatology [address] [place] [address] 5th Floor Lab [address] [phone] documented in this encounter Visit Diagnoses Not on filedocumented in this encounter Care Teams Control Room Supervisor Relationship Specialty Start Date End Date Angelo Stewart MD [address] [place] [address] PCP - General 02/04/08 documented as of this encounter
--- OUTSIDE RECORDS SUMMARY | 2024-10-21 11:56 | XMS_ITS | Encounter Summary ---
Author Organization [employer] Address [address] [place] [address] Care Team Providers Care Bomb Loader Name Role Phone Unavailable Primary Care Provider Unavailabl e Encounter Details Date Type Department Care Team (Latest Contact Info) Description 03/24/1999 Outpatient [address] 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
--- OUTSIDE RECORDS SUMMARY | 2024-10-21 11:56 | XMS_ITS | Encounter Summary ---
Author Organization [facility] Healthcare Address [address] [place] [address] Care Team Providers Care Radar Engineering Teacher Name Role Phone Codie Mittal MD Unavailable [phone] Tristin Mosley MD Unavailable Ivory Chou MD Primary Care Provider Reason for Visit * Reason Onset Date Comments Shortness of Breath 10/21/2024 Fatigue 10/21/2024 Hypotension 10/21/2024 Encounter Details Date Type Department Care Team (Late st Contact Info) Description 10/21/2024 Nurse Triage [facility] Medical Group Primary Care at [facility] [address] [facility] [place] [address] Ivory Chou MD [address] [place] [address] Social History Tobacco Use Types Packs/Day Years Used Date Smoking Tobacco: Former Cigarettes 0.8 19.8 0 06/22/1982 - 2002 Smokeless Tobacco: Never Comments:Quit 31 years ago AUDIT-C Answer Date Recorded Frequency of Alcohol Consumption Not on file 03/08/2023 Q2: How many drinks containi ng alcohol do you have on a typical day when you are drinking? 1 or 2 03/08/2023 Q3: How often do you have si x or more drinks on one occasion? Weekly 03/08/2023 PHQ-2 Answer Date Recorded PHQ-2 Total Score (If total score is 3 or more points, staff should administer the PHQ-9) 0 08/05/2024 Comments No Sex and Gender Information Value Date Recorded Sex Assigned at Not on file Legal Sex Female 1:55 AM PRACTICE MANAGER Gender Identity Not on file Sexual Orientation Not on file documented as of this encounter Miscellaneous Notes * Telephone Encounter - Concha Guillaume - 10/21/2024 11:46 AM CDT Pt heading to ED now. Sending as FYI * Telephone Encounter - Jo Vieira RN - 10/21/2024 11:05 AM CDT Reason for Conversation Shortness of Breath, Fatigue, and Hypotension Background [place] calling about sob and fatigue since last night. Did a lot of power washing yesterday, was in the shade. SOB going up the stairs last night and then got very sluggish. Sat down and felt like her chest was heavy. This morning BP is low-72/55, on second check. States it was lower on her first check. Has had some slight lightheadedness when standing, no current light headedness. Cheststill feels heavy, but doesn't hurt. Pt has a headache. Advised ED evaluation, spouse is home and can take her. Advised she call 911 if symptoms worsen before her ED visit. Advised pt to call back ifsymptoms worsen or with any other concerns/questions. Pt verbalized understanding. Tasking FYI to the office. Disposition Go to ED Now Reason for Disposition Systolic BP < 80 and NOT feeling weak or lightheaded Protocols Used Blood Pressure - [id number] * Telephone Encounter - Jo Vieira RN - 10/21/2024 11:03 AM CDT Regarding: SOB, feeling sluggish ----- Message from Zari Gaston sent at 10/21/2024 10:56 AM CDT ----- Symptom Based Call Chief Complaint(s): SOB, feeling sluggish Duration: since last night What type of symptom(s) is the patient experiencing? Red Flag. Is the patient concerned they are experiencing a medical emergency requiring an ambulance? No Additional Comments: Patient stated she's been experiencing SOB and feeling sluggish since last night. Patient would like to speak with automotive refinisher for further assessment. Does message need to be routed? Yes-Action Needed documented in this encounter Plan of Treatment Not on file documented as of this encounter Visit Diagnoses Not on filedocumented in this encounter Care Teams Radar Engineering Teacher Relationship Specialty Start Date End Date Ivory Chou MD [address] [facility] [address] [place] [address] PCP - General Internal Medicine 07/20/23 Codie Mittal MD [address] [place] [address] Referring Physician Gynecology 03/03/22 Tristin Mosley MD [address] [place] [address] Cardiovascular Disease 03/04/22 documented as of this encounter
--- OUTSIDE RECORDS SUMMARY | 2024-10-21 11:56 | XMS_ITS | Encounter Summary ---
Author Organization [employer] Address 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
--- OUTSIDE RECORDS SUMMARY | 2024-10-21 11:56 | XMS_ITS | Encounter Summary ---
Author Organization [employer] Address 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
--- OUTSIDE RECORDS SUMMARY | 2024-10-21 11:56 | XMS_ITS | Encounter Summary ---
Author Organization [facility] Healthcare Address [address] [place] [address] Care Team Providers Care Mop Worker Name Role Phone Codie Mittal MD Unavailable [phone] Tristin Mosley MD Unavailable Ivory Chou MD Primary Care Provider Encounter Details Date Type Department Care Team (Latest Contact Info) Description 10/03/2024 Results Follow-Up [facility] Medical Group ENT Specialists - [facility] [address] [address] Billy Elise MD [address] [address] [address] Soft Tissue Neck with Contrast Social History Tobacco Use Types Packs/Day Years [...] on file Legal Sex Female 1:55 AM 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 We discussed options of observation versus excision and given the tiny size and that it is asymptomatic I do feel comfortable watching this. She is in agreement so we will arrange for a follow up a thyroid ultrasound in 6 months and she will see me after that. documented in this encounter Plan of Treatment Not on file documented as of this encounter Visit Diagnoses Not on filedocumented in this encounter Care Teams Mop Worker Relationship Specialty Start Date End Date Ivory Chou MD [address] [facility] [address] [place] [address] PCP - General Internal Medicine 07/20/23 Codie Mittal MD [address] [place] [address] Referring Physician Gynecology 03/03/22 Tristin Mosley MD [address] [place] [address] Cardiovascular Disease 03/04/22 documented as of this encounter
--- OUTSIDE RECORDS SUMMARY | 2024-10-21 11:56 | XMS_ITS | Encounter Summary ---
Author Organization [employer] Address 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
--- OUTSIDE RECORDS SUMMARY | 2024-10-21 11:56 | XMS_ITS | Encounter Summary ---
Author Organization [facility] Healthcare Address [address] [place] [address] Care Team Providers Care Concert Pianist Name Role Phone Codie Mittal MD Unavailable [phone] Tristin Mosley MD Unavailable Ivory Chou MD Primary Care Provider Reason for Referral * Consultation (Routine) - Closed Specialty Diagnoses / Procedures Referred By Xavier fisher Referred To Contact Otolaryngology Diagnoses Thyroglossal duct cyst Ivory Chou MD [address] [facility] [address] [place] [address] Phone: tel: fax: Billy Elise MD [address] [facility] [address], [place] [address] Phone: tel: fax: Referral ID Status Reason Start Date Expiration Date V isits Requested Visits Authorized [id number] Closed Specialty Services Required 09/04/2024 10/04/2025 1 1 Question Answer Please select the performing region: [facility] Medical Group [[id number]] Please select the performing department: [facility] ENT SPEC [id number] [[id number]] To provider: BILLY ELISE [[id number]] # of visits: 1 Encounter Details Date Type Department Care Team (Late st Contact Info) Description 09/04/2024 Results Follow-Up [facility] Medical Group Primary Care at [facility] [address] 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 Gender Identity Not on file Sexual Orientation Not on file documented as of this encounter Miscellaneous Notes * Telephone Encounter - Tito Del Rio - 09/04/2024 1:27 PM CDT Noted pt read message documented in this encounter Plan of Treatment Scheduled Referrals Name Type Priority Associated Diagnoses Order Schedule Ambulatory referral to ENT Outpatient Referral Routine Thyroglossal duct cyst Expected: 09/18/2024 (Approximate), Expires: 09/04/2025 documented as of this encounter Visit Diagnoses Diagnosis 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
--- OUTSIDE RECORDS SUMMARY | 2024-10-21 11:56 | XMS_ITS | Encounter Summary ---
Author Organization [employer] Address 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
--- OUTSIDE RECORDS SUMMARY | 2024-10-21 11:56 | XMS_ITS | Encounter Summary ---
Author Organization [employer] Address [address] [place] [address] Care Team Providers Care Axminster Weaver Name Role Phone Unavailable Primary Care Provider Unavailabl e Encounter Details Date Type Department Care Team (Latest Contact Info) Description 07/13/1999 Outpatient Historical [facility] Danielle Celestin MD NO ADDRESS ON FILE Female infertility of unspecified origin (Primary Dx) Social History Tobacco Use Types Packs/Day Years Used Date Smoking Tobacco: Never Assessed Comments Unknown Sex and Gender Information Value Date Recorded Sex Assigned at Not on file Legal Sex Female 3:30 AM DISTRICT CAPTAIN Gender Identity Not on file Sexual Orientation Not on file documented as of this encounter Plan of Treatment Not on file documented as of this encounter Visit Diagnoses Diagnosis Female infertility of unspecified origin- Primary documented in this encounter
--- OUTSIDE RECORDS SUMMARY | 2024-10-21 11:56 | XMS_ITS | Clinical Summary ---
Author Organization [facility] Care Team Providers Care Recovery Coordinator Name Role Phone Unavailable Primary Care Provider Unavailabl e Social History Tobacco Use Types Packs/Day Years Used Date Smoking Tobacco: Never Assessed Comments Unknown Sex and Gender Information Value Date Recorded Sex Assigned at Not on file Legal Sex Female 8:55 AM HEADER BOSS Gender Identity Not on file Sexual Orientation Not on file Plan of Treatment Health Maintenance Due Date Last Done Comments Hepatitis C Virus (HCV) Screening 1961 TdaP Immunization 1961 Pap Smear 1982 Cervical Cancer Screening (CCS) 1991 HPV/Cotest 1991 Colonoscopy 2006 Colorectal Cancer Screening 2006 Cologuard 2011 Immunochemical Fecal Occult Blood 2011 Mammogram 2011 Pneumococcal Immunization (5 0+ years) (1 of 1 - PCV) 2011 Zoster Immunization (1 of 2) 2011 Influenza Immunization (#1) 2023 03/03/2021 SARS-COV-2 Immunization ( season) 2023 03/03/2021, 07/09/2020, 06/20/2020 Respiratory Syncytial Virus (RSV) Immunization (Adult) (1 - 1-dose 75+ series) 2036 Hepatitis B Immunization Aged Out No longer eligible based on patient's age to complete this topic Meningococcal Immunization (ACWY) Aged Out No longer eligible b ased on patient's age to complete this topic Pneumococcal Immunization Combined Aged Out No longer eligible b ased on patient's age to complete this topic Rotavirus Immunization Aged Out No lo nger eligible based on patient's age to complete this topic
--- OUTSIDE RECORDS SUMMARY | 2024-10-21 11:56 | XMS_ITS | Encounter Summary ---
Author Organization [employer] Address [address] [place] [address] Care Team Providers Care Transition Of Care Specialist Name Role Phone Unavailable Primary Care Provider Unavailabl e Encounter Details Date Type Department Care Team (Latest Contact Info) Description 05/10/[address] [facility] Danielle Celestin MD NO ADDRESS ON FILE Female infertility of unspecified origin (Primary Dx) Social History Tobacco Use Types Packs/Day Years Used Date Smoking Tobacco: Never Assessed Comments Unknown Sex and Gender Information Value Date Recorded Sex Assigned at Not on file Legal Sex Female 3:30 AM PLATFORM INSPECTOR Gender Identity Not on file Sexual Orientation Not on file documented as of this encounter Plan of Treatment Not on file documented as of this encounter Visit Diagnoses Diagnosis Female infertility of unspecified origin- Primary documented in this encounter
--- OUTSIDE RECORDS SUMMARY | 2024-10-21 11:56 | XMS_ITS | Referral Summary ---
Author Organization [facility] Address [facility] [place] [address] Care Team Providers Care Email Deployment Specialist Name Role Phone Codie Mittal MD Unavailable [phone] Tristin Mosley MD Unavailable Ivory Chou MD Primary Care Provider Encounters Date Type Department Care Team Description 10/21/2024 Nurse Triage [facility] at [facility] [address], [place] [address] Ivory Chou MD 10/03/2024 Orders Only [facility] - [facility] [address] [place] [phone] Billy Elise MD Thyroglossal duct cyst (Primary Dx) 10/03/2024 Results Follow-Up [facility] - [facility] [address], [place] [address] Soft Tissue Neck with Contrast 10/01/2024 2:03 PM CDT - 10/01/2024 11:59 PM CDT Hospital Encounter [facility] - [facility] [address] [place] [address] Billy Elise MD Thyroglossal duct cyst Discharge Disposition: Discharge to home or self care 09/23/2024 2:00 PM CDT Office Visit [facility] - [facility] [address] [place] [address] Billy Elise MD Gastroesophageal reflux disease with esophagitis without hemorrhage (Primary Dx); Thyroglossal duct cyst 09/04/2024 Results Follow-Up [facility] Primary Care at [address], [place] [address] Ivory Chou MD US Thyroid 09/03/2024 Results Follow-Up [facility] [address] [place] [phone] Marleni Agarwal MD Screening Mammogram Bilateral W Miguel 09/02/2024 1:08 PM CDT - 09/02/2024 11:59 PM CDT Hospital Encounter [facility] [address] [place] [address] Thyromegaly Discharge Disposition: Discharge to home or self care 09/02/2024 10:03 AM CDT - 09/02/2024 11:59 PM CDT Hospital Encounter [facility] [address] [place] [address] Breast cancer screening by mammogram; Encounter for screening mammogram for breast cancer Discharge Disposition: Discharge to home or self care 08/05/2024 9:10 AM CDT Lab [facility] [address] [place] [address] [place] [address] Annual physical exam 08/05/2024 1:00 PM CDT Office Visit [facility] Primary Care at [address] [place] [phone] Ivory Chou MD Encounter for preventive health examination (Primary Dx); Heterogeneously dense tissue of both breasts on mammography; Pure hypercholesterolemia; Hypothyroidism, unspecified type; Migraine without aura and without status migrainosus, not intractable; History of colon polyps; Varicose veins of calf; Need for Tdap vaccination; Hyperlipidemia, unspecified hyperlipidemia type; Thyromegaly; Elevated blood pressure reading without diagnosis of hypertension; Fatigue, unspecified type from Last 3 Months Allergies Active Allergy Reactions Criticality Noted Date Comments Cat Dander Sneezing High 05/04/2022 Medications MAGNESIUM CITRATE ORAL Take 250 mg by mouth daily Active rizatriptan GYMNASTICS INSTRUCTOR (MAXALT-GYMNASTICS INSTRUCTOR) 10 mg disintegrating tabletIndications: Migraine Take 1 tablet (10 mg total) by mouth once as needed for migraine May repeat in 2 hours if unresolved. Do not exceed 30 mg in 24 hours. 9 tablet 3 5 05/03/19 Active atorvastatin (LIPITOR) 40 mg tabletIndications: Hyperlipidemia, unspecified hyperlipidemia type Take 1 tablet (40 mg total) by mouth daily 90 tablet 3 5 08/06/19 Active levothyroxine (SYNTHROID) 112 mcg tabletIndications: Hypothyroidism, unspecified type Take 1 tablet (112 mcg total) by mouth campaign advisor before breakfast 90 tablet 3 5 08/06/19 26 Active Active Problems Problem Noted Date Diagnosed Date Heterogeneously dense tissue of both breasts on mammography 03/06/2024 Assessment & Plan (08/05/2024 1:33 PM CDT): See above Encounter for preventive health examination 06/23 Assessment & Plan (08/05/2024 2:10 PM CDT): General - HbA1c: 5.3% 06/2024 - Lipid panel: LDL 165 06/2024 - ASCVD score: On atorvastatin - DEXA scan: Discuss at 66 Cancer - Colonoscopy: UTD 08/2023, repeat 08/2028 - Mammogram: Scheduled 08/2024 - Breast MRI: UTD 02/2024, repeat 02/2025 - Pap: UTD 04/2024, repeat per [employer] Immunizations - Influenza: UTD 01/2024, repeat annually - Td/Tdap: UTD 07/2024 - PCV20: Discuss at 66 - Shingles: UTD x 2 [id number] - COVID: UTD 01/2024 Assessment & Plan (07/20/2023 2:17 PM CDT): General - HbA1c: Ordered - Lipid panel: Ordered - ASCVD score: Pending - DEXA scan: Discuss at 66 Cancer - Colonoscopy: UTD, records requested - Mammogram: UTD 02/2023, repeat 02/2024 - Breast MRI: UTD 02/2023, repeat 02/2024 - Pap: UTD, records requested Immunizations - Influenza: UTD 01/2023, repeat annually - Td/Tdap: Records requested - PCV20: Discuss at 66 - Shingles: UTD 12/2022, recommend 2nd dose - COVID: Recommended Hyperlipidemia 07/20/2023 Assessment & Plan (08/05/2024 2:10 PM CDT): Stable on atorvastatin 20 mg daily. - Continue current regimen Orders: atorvastatin (LIPITOR) 40 mg tablet; Take 1 tablet (40 mg total) by mouth daily Assessment & Plan (08/05/2024 2:10 PM CDT): Uncontrolled on atorvastatin 20 mg daily, LDL 165 today. - Increase atorvastatin to 40 mg daily Assessment & Plan (07/20/2023 4:09 PM CDT): Stable on atorvastatin 20 mg daily. - Continue current regimen Hypothyroidism 07/20/2023 Assessment & Plan (08/05/2024 1:33 PM CDT): Stable on LT4 112 mcg daily. - Continue current regimen Assessment & Plan (07/20/2023 4:10 PM CDT): Stable on LT4 112 mcg daily. - Continue current regimen History of colon polyps 07/20/2023 Assessment & Plan (08/05/2024 1:33 PM CDT): C-scope UTD 09/2023, history of polyps. Assessment & Plan (07/20/2023 2:10 PM CDT): C-scope UTD, history of polyps. C-scope scheduled 09/2023 at [facility]. - Send records w/ updated records Migraine without aura and wi thout status migrainosus, not intractable 07/20/2023 Assessment & Plan (08/05/2024 1:33 PM CDT): Persistent headaches, migrainous features. Usually uses Excedrin w/ some improvement. Seems to have food triggers, will start doing headache diary. - Trial Maxalt PRN Assessment & Plan (07/20/2023 4:10 PM CDT): Persistent headaches, migrainous features. Usually uses Excedrin w/ some improvement. Seems to have food triggers, will start doing headache diary. - Trial Maxalt PRN Varicose veins of calf 07/20/2023 Assessment & Plan (08/05/2024 1:33 PM CDT): Bilateral. No pain/swelling. - Continue to monitor Assessment & Plan (07/20/2023 2:22 PM CDT): Bilateral. No pain/swelling. - Continue to monitor Resolved Problems Problem Noted Date Diagnosed Date Resolved Date Inconclusive mammogram due to dense breasts 03/06/2024 08/05/2024 Encounter for screening mamm ogram for breast cancer 03/08/2023 07/20/2023 Abnormal mammogram 05/04/2022 3 Family history of breast cancer 05/04/2022 07/20/2023 Dense breast tissue on mammogram 05/04/2022 07/20/2023 Breast cancer screening, high risk patient 05/04/2022 08/05/2024 Assessment & Plan (07/20/2023 2:09 PM CDT): Follows with Dr. Agarwal. MRI and mammogram UTD 02/2023, doing both again 02/2024 then start alternating Q6 months. 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 Gender Identity Not on file Sexual Orientation Not on file Last Filed Vital Signs Vital Sign Reading Time Taken Comments Blood Pressure 154/90 08/05/2024 1:02 PM CDT Pulse 77 08/05/2024 1:02 PM CDT Temperature 36.6 C (97.8 F) 03/06/2024 1:55 PM PHARMACY TECHNICIAN INPATIENT Respiratory Rate 17 03/06/2024 1:55 PM PHARMACY TECHNICIAN INPATIENT Oxygen Saturation 98% 08/05/2024 1:02 PM CDT Inhaled Oxygen Concentration - - Weight 81.6 kg (180 lb) 09/02/2024 10:26 AM CDT Height 165.1 cm (5' 5) 09/02/2024 10:26 AM CDT Body Mass Index 29.95 09/02/2024 10:26 AM CDT Plan of Treatment Not on file Medical Devices Implanted Type Area Lapeler Device Identifier Shelf Expiration Date Model / Serial / Lot [employer] Guide 15ga Coaxial Needle Ultrasound Breast Boipsy Coil 1 [employer]ium [employer]dromark 4009-06-08-T1 - [id number] Implanted:Qty: 1 on 10/27/2022 at [facility] [employer] [id number] -T1 / / [id number] Procedures Procedure Name Priority Date/Time Associated Diagnosis Comments CT SOFT TISSUE NECK W CONTRAST Schedule Routine, Read Routine (OP Routine) 10/01/2024 2:35 PM CDT Thyroglossal duct cyst US THYROID Schedule Routine, Read Routine (OP Routine) 09/02/2024 1:24 PM CDT Thyromegaly SCREENING MAMMOGRAM BILATERAL W MIGUEL Schedule Routine, Read Routine (OP Routine) 09/02/2024 10:34 AM CDT Breast cancer screening by mammogram Encounter for screening mammogram for breast cancer EGFR Routine 08/05/2024 12:47 PM CDT Annual physical exam COMPREHENSIVE METABOLIC PANEL Routine 08/05/2024 12:47 PM CDT Annual physical exam LIPID PANEL Routine 08/05/2024 12:47 PM CDT Annual physical exam THYROID FUNCTION CASCADE Routine 08/05/2024 12:47 PM CDT Annual physical exam VITAMIN D 25 HYDROXY Routine 08/05/2024 12:47 PM CDT Annual physical exam DIFFERENTIAL AUTO Routine 08/05/2024 12: 46 PM CDT Annual physical exam CBC WITH AUTO DIFFERENTIAL Routine 08/05/2024 12:46 PM CDT Annual physical exam HEMOGLOBIN A1C Routine 08/05/2024 12:46 PM CDT Annual physical exam HM COLONOSCOPY Routine 09/11/2023 HM PAP SMEAR Routine 05/04/2023 from Last 3 Months or Most Recently Relevant to Health Maintenance Results * CT Soft Tissue Neck with Contrast (10/01/2024 2:35 PM CDT) Anatomical Region Laterality Modality Head and Neck N/A Computed Tomogra phy 10/01/2024 3:04 PM CDT Impressions 10/01/2024 3:14 PM CDT 6 mm cystic nodule ventral and just superior to the thyroid isthmus correlates with probable small thyroglossal duct cyst seen on ultrasound. No surrounding inflammation. Dictated by: Tri Schroeder M.D. The radiology attending physician has personally reviewed this study, and had reviewed and/or edited this written report and agrees with it. Electronically signed by: Reji Fabian MD Narrative 10/01/2024 3:14 PM CDT EXAMINATION: CT of the neck with contrast HISTORY: 64 years-old Female with evaluate suspected thyroglossal duct cyst. TECHNIQUE: CT of the neck was performed according to the standard protocol with intravenous contrast. Contrast information: 68 mL Optiray-350 IV COMPARISON: Thyroid ultrasound 09/02/2024. FINDINGS: Scattered subcentimeter lymph nodes are seen in the neck. None are pathologically enlarged or abnormally enhancing. The muscles of the neck are normal. Vessels of the neck demonstrate normal course and caliber. Fascial planes are preserved and the deep spaces of the neck are normal. The visualized airway is widely patent. The left submandibular gland is absent. 6 mm peripherally isodense round nodule ventral to the thyroid isthmus with central hypodensity (2:85, 6:76) The base of the skull and the temporal bones are normal. Limited views of the brain including the cerebellum and brainstem are normal. The limited view of the Grady of [place] is unremarkable. The visualized portions of the orbits are normal. Mild cervical spondylosis. No high-grade spinal canal stenosis. Limited examination of the superior thorax shows no pulmonary infiltrate, suspicious nodules, or pleural effusions. Procedure Note Reji Fabian MD PhD - 10/01/2024 EXAMINATION: CT of the neck with contrast HISTORY: 64 years-old Female with evaluate suspected thyroglossal duct cyst. TECHNIQUE: CT of the neck was performed according to the standard protocol with intravenous contrast. Contrast information: 68 mL Optiray-350 IV COMPARISON: Thyroid ultrasound 09/02/2024. FINDINGS: Scattered subcentimeter lymph nodes are seen in the neck. None are pathologically enlarged or abnormally enhancing. The muscles of the neck are normal. Vessels of the neck demonstrate normal course and caliber. Fascial planes are preserved and the deep spaces of the neck are normal. The visualized airway is widely patent. The left submandibular gland is absent. 6 mm peripherally isodense round nodule ventral to the thyroid isthmus with central hypodensity (2:85, 6:76) The base of the skull and the temporal bones are normal. Limited views of the brain including the cerebellum and brainstem are normal. The limited view of the Grady of [place] is unremarkable. The visualized portions of the orbits are normal. Mild cervical spondylosis. No high-grade spinal canal stenosis. Limited examination of the superior thorax shows no pulmonary infiltrate, suspicious nodules, or pleural effusions. IMPRESSION: 6 mm cystic nodule ventral and just superior to the thyroid isthmus correlates with probable small thyroglossal duct cyst seen on ultrasound. No surrounding inflammation. Dictated by: Tri Schroeder M.D. The radiology attending physician has personally reviewed this study, and had reviewed and/or edited this written report and agrees with it. Electronically signed by: Reji Fabian MD us Billy Elise MD IMG CT PROCEDURES Final Res ult * US Thyroid (09/02/2024 1:24 PM CDT) Anatomical Region Laterality Modality Head and Neck N/A Ultrasound 09/02/2024 1:30 PM CDT Impressions 09/02/2024 1:30 PM CDT 1. No suspicious thyroid nodules. 2. 6 mm complex cyst midline in location just superior to the isthmus likely representing a thyroglossal duct cyst. Short-term sonographic follow-up in 6-12 months is recommended. 3. Small mildly heterogeneous thyroid. ACR TI-RADS recommendations TR5 (>7 points) - FNA if > 1cm, follow-up if 0.5-0.9 cm every year for 5 years TR4 (4-6 points) - FNA if > 1.5cm, follow-up if 1-1.4 cm every 1, 2, 3 and 5 years TR3 (3 points) - FNA if > 2.5cm, follow-up if 1.5-2.4 cm every 1, 2, 3 and 5 years TR2 (2 points) & TR1 (0 points) - No FNA or follow-up Electronically signed by: Jay Paz M.D. Narrative 09/02/2024 1:30 PM CDT EXAM: US THYROID CLINICAL HISTORY: Palpable nodule or thyroid enlargement COMPARISON: None available. FINDINGS: Thyroid: The thyroid is small bilaterally with mild heterogeneity of the thyroid echotexture. Right lobe: The right thyroid lobe measures 2.2 x 0.9 x 0.9 cm. No discrete right thyroid nodule is identified. Left lobe: The left thyroid lobe measures 2.3 x 0.7 x 0.6 cm. There is no discrete left thyroid nodule. Isthmus: Unremarkable. Extrathyroidal soft tissues: There is a cyst midline in location just superior to the isthmus which measures 6 x 4 x 4 mm. This likely represents a thyroglossal duct remnant. Sonographic surveillance in 6-12 months is recommended. Procedure Note Jay Paz MD - 09/02/2024 EXAM: US THYROID CLINICAL HISTORY: Palpable nodule or thyroid enlargement COMPARISON: None available. FINDINGS: Thyroid: The thyroid is small bilaterally with mild heterogeneity of the thyroid echotexture. Right lobe: The right thyroid lobe measures 2.2 x 0.9 x 0.9 cm. No discrete right thyroid nodule is identified. Left lobe: The left thyroid lobe measures 2.3 x 0.7 x 0.6 cm. There is no discrete left thyroid nodule. Isthmus: Unremarkable. Extrathyroidal soft tissues: There is a cyst midline in location just superior to the isthmus which measures 6 x 4 x 4 mm. This likely represents a thyroglossal duct remnant. Sonographic surveillance in 6-12 months is recommended. IMPRESSION: 1. No suspicious thyroid nodules. 2. 6 mm complex cyst midline in location just superior to the isthmus likely representing a thyroglossal duct cyst. Short-term sonographic follow-up in 6-12 months is recommended. 3. Small mildly heterogeneous thyroid. ACR TI-RADS recommendations TR5 (>7 points) - FNA if > 1cm, follow-up if 0.5-0.9 cm every year for 5 years TR4 (4-6 points) - FNA if > 1.5cm, follow-up if 1-1.4 cm every 1, 2, 3 and 5 years TR3 (3 points) - FNA if > 2.5cm, follow-up if 1.5-2.4 cm every 1, 2, 3 and 5 years TR2 (2 points) & TR1 (0 points) - No FNA or follow-up Electronically signed by: Jay Paz M.D. Ivory Chou MD [facility] US PROCEDURES Cyndy l Result * Screening Mammogram Bilateral W Miguel (09/02/2024 10:34 AM CDT) Anatomical Region Laterality Modality Breast Bilateral Mammography Impressions 09/03/2024 9:52 AM CDT Bilateral No evidence of malignancy in either breast. OVERALL BI-RADS FINAL ASSESSMENT: 2 - Benign RECOMMENDATION: Recommend bilateral annual screening mammography. Narrative 09/03/2024 9:52 AM CDT EXAMINATION: Screening Mammogram Bilateral W Miguel: 09/02/2024 COMPARISON: Relevant prior studies available at the time of interpretation were reviewed. TECHNIQUE: Mammography was performed with 2D and digital breast tomosynthesis (DBT) images. CAD was utilized. BREAST PARENCHYMAL COMPOSITION: The breasts are heterogeneously dense, which may obscure small masses. FINDINGS: Bilateral There is no suspicious mass, calcification, or architectural distortion in either breast. Marleni Agarwal MD [facility] MAMMO PROCEDURES Final Result * eGFR (08/05/2024 12:47 PM CDT) eGFR >90 >=60 mL/min/1. 73 m2 Comment: Interpretive Data Reference Interval Normal >/= 90 mL/min/1.73m2 Mildly decreased* 60 - 89 mL/min/1.73m2 Mildly to moderately decreased 45 - 59 mL/min/1.73m2 Moderately to severely decreased 30 - 44 mL/min/1.73m2 Severely decreased 15 - 29 mL/min/1.73m2 Kidney Failure < 15 mL/min/1.73m2 *Relative to young adult level Estimated glomerular filtration rate is determined by the 2020 CKD-EPI equation recommended by the National Kidney Foundation (A Unifying Approach to GFR Estimation: Recommendations of the NKF-ASK Task Force on Reassessing the Inclusion of Race in Diagnosing Kidney Disease, JASN 2020). The CKD-EPI equation should not be used for patients with unstable renal function and has not been validated in children and those over 70. Current interpretive data was last reviewed 2021. Blood 08/05/2024 12:4 7 PM CDT 08/05/2024 12:47 PM CDT Connie Manrique SLEEVE SEPARATOR LAB BLOOD ORDERABLES Final Re sult Performing Organization Address [facility] Co de Phone Number [facility] [address] [facility] [place], [place] [id number] * Thyroid Function [place] (08/05/2024 12:47 PM CDT) TSH 3.38 0.30 - 4.20 mcIUnit/mL Blood 08/05/2024 12:4 7 PM CDT 08/05/2024 12:47 PM CDT Connie Manrique SLEEVE SEPARATOR LAB BLOOD ORDERABLES Final Re sult Performing Organization Address [facility] Co de Phone Number [facility] [address] [facility] [place] [address] * Vitamin D 25 hydroxy (08/05/2024 12:47 PM CDT) Vitamin D 25-OH 41 30 - 80 ng/mL Blood 08/05/2024 12:4 7 PM CDT 08/05/2024 12:47 PM CDT Connie Manrique SLEEVE SEPARATOR LAB BLOOD ORDERABLES Final Re sult Performing Organization Address [facility] Co de Phone Number [facility] [address] Department [place], [place] [id number] * (ABNORMAL) Lipid panel (08/05/2024 12:47 PM CDT) Cholesterol 258(H) 30 - 199 mg/dL Comment: Interpretive Data Ages < or = 19 years Acceptable: <170 mg/dL Borderline high: 170-199 mg/dL High: >or= 200 mg/dL Ages > or = 20 years Desirable: <200 mg/dL Borderline high: 200-239 mg/dL High: >or= 240 mg/dL Literature References: 1. Expert Panel on Integrated Guidelines for Cardiovascular Health and Risk Reduction in Children and Adolescents. Pediatrics 2011;128:S213 2. NCEP Expert Panel. Circulation 2004;110:227 Current Interpretive Data was last revised on 2017. Triglycerides 195(H) <=149 mg/dL [facility] Comment: Interpretive Data Ages < or = 9 years Acceptable: <75 mg/dL Borderline high: 75-99 mg/dL High: >or= 100 mg/dL Ages 10 to 20 years Acceptable: <90 mg/dL Borderline high: 90-129 mg/dL High: >or= 130 mg/dL Ages > or = 20 years Desirable: <150 mg/dL Borderline high: 150-199 mg/dL High: 200-499 mg/dL Very high: >or= 499 mg/dL Literature References: 1. Expert Panel on Integrated Guidelines for Cardiovascular Health and Risk Reduction in Children and Adolescents. Pediatrics 2011;128:S213 2. NCEP Expert Panel. Circulation 2004;110:227 Current Interpretive Data was last revised on 2017. HDL 57 >=40 mg/dL [facility] Comment: Interpretive Data Ages < or = 19 years Acceptable: >45 mg/dL Borderline low: 40-45 mg/dL Low: <40 mg/dL Ages > or = 20 years Desirable: >or= 60 mg/dL Low: <40 mg/dL Literature References: 1. Expert Panel on Integrated Guidelines for Cardiovascular Health and Risk Reduction in Children and Adolescents. Pediatrics 2011;128:S213 2. NCEP Expert Panel. Circulation 2004;110:227 Current Interpretive Data was last revised on 2017. LDL, calculated 165(H) <=129 mg/dL [facility] Comment: Interpretive Data Ages < or = 19 years Acceptable: <110 mg/dL Borderline high: 110-129 mg/dL High: >or= 130 mg/dL Ages > or = 20 years Optimal: <100 mg/dL Near optimal: 100-129 mg/dL Borderline high: 130-159 mg/dL High: >160 mg/dL Calculated using the Corbin LDL-C estimating equation. This equation was implemented on 2023. Prior to this date LDL-C was estimated using the Friedewald equation. Literature References: 1. Expert Panel on Integrated Guidelines for Cardiovascular Health and Risk Reduction in Children and Adolescents. Pediatrics 2011;128:S213 2. NCEP Expert Panel. Circulation 2004;110:227 3. Corbin Hernandez et al. JOLYNN Cardiol. 2019August 22;5(5):540-548. doi: 10.1001/[email or web address].2020.0013 Current Interpretive Data was last revised on 2023. Non-HDL Cholesterol 201 mg/dL [facility] Comment: Interpretive Data Ages < or = 19 years Acceptable: <120 mg/dL Borderline high: 120-144 mg/dL High: >145 mg/dL Ages > or = 20 years When triglycerides are >200 mg/dL, Non-HDL cholesterol is a secondary target of therapy with treatment goals that are 30 mg/dL greater than the LDL cholesterol target. Literature References: 1. Expert Panel on Integrated Guidelines for Cardiovascular Health and Risk Reduction in Children and Adolescents. Pediatrics 2011;128:S213 2. NCEP Expert Panel. Circulation 2004;110:227 Current Interpretive Data was last revised on 2017. Chol/HDL ratio 5 [facility] Blood 08/05/2024 12:4 7 PM CDT 08/05/2024 12:47 PM CDT us Connie Manrique SLEEVE SEPARATOR LAB BLOOD ORDERABLES Final Re sult [facility] [address] Department [place] [address] * Comprehensive metabolic panel (08/05/2024 12:47 PM CDT) Sodium 139 135 - 145 mmol/L Potassium, pl 4.7 3.3 - 4.9 mmol/L [facility] Chloride 101 97 - 110 mmol/L [facility] CO2 24 22 - 32 mmol/L [facility] Anion gap 14 2 - 15 mmol/L [facility] BUN 18 6 - 25 mg/dL [facility] Creatinine 0.61 0.60 - 1.10 mg/dL [facility] Glucose 80 70 - 199 mg/dL [facility] Comment: Interpretive Data Fasting glucose >/= 126 mg/dl is diagnostic for diabetes. Fasting is defined as no caloric intake for at least 8 hours. Fasting glucose between 100 mg/dl to 125 mg/dl is diagnostic of prediabetes. In a patient with classic symptoms of hyperglycemia or hyperglycemic crisis, a random glucose >/= 200 mg/dl is diagnostic for diabetes. In the absence of unequivocal hyperglycemia, results should be confirmed by repeat testing. The classification and Diagnosis of Diabetes Diabetes Care 2021; 46: S19-S40. Current interpretive data was last revised 2022. Calcium 9.9 8.5 - 10.3 mg/dL [facility] Bilirubin, total 0.3 0.1 - 1.2 mg/dL [facility] Protein, pl 6.9 6.5 - 8.5 g/dL [facility] Albumin 4.4 3.5 - 5.0 g/dL [facility] Alk phos 98 40 - 130 Units/L [facility] ALT 22 7 - 45 Units/L [facility] AST 22 10 - 45 Units/L [facility] Comment:Slightly Hemolyzed S pecimen Blood 08/05/2024 12:4 7 PM CDT 08/05/2024 12:47 PM CDT us Connie Manrique SLEEVE SEPARATOR LAB BLOOD ORDERABLES Final Re sult [facility] [address] Department [place] [address] * Differential, auto (08/05/2024 12:46 PM CDT) Neutrophil abs 2.20 1.50 - 6.50 K/cumm Imm gran abs 0.01 0.00 - 0.10 K/cumm [facility] Lymphocyte abs 1.55 0.80 - 3.30 K/cumm [facility] Monocyte abs 0.28 0.20 - 0.80 K/cumm [facility] Eosinophil abs 0.15 0.00 - 0.50 K/cumm [facility] Basophil abs 0.02 0.00 - 0.10 K/cumm [facility] Neutrophil pct 52.2 % [facility] Comment: Interpretive Data Percent cell count reference ranges are not reported, since discordance with absolute values may lead to misinterpretation of CBC data. Current Interpretive Data was last revised on 2017. Imm gran pct 0.2 % [facility] Comment: Interpretive Data Percent cell count reference ranges are not reported, since discordance with absolute values may lead to misinterpretation of CBC data. Current Interpretive Data was last revised on 2017. Lymphocyte pct 36.8 % [facility] Comment: Interpretive Data Percent cell count reference ranges are not reported, since discordance with absolute values may lead to misinterpretation of CBC data. Current Interpretive Data was last revised on 2017. Monocyte pct 6.7 % [facility] Comment: Interpretive Data Percent cell count reference ranges are not reported, since discordance with absolute values may lead to misinterpretation of CBC data. Current Interpretive Data was last revised on 2017. Eosinophil pct 3.6 % [facility] Comment: Interpretive Data Percent cell count reference ranges are not reported, since discordance with absolute values may lead to misinterpretation of CBC data. Current Interpretive Data was last revised on 2017. Basophil pct 0.5 % [facility] Comment: Interpretive Data Percent cell count reference ranges are not reported, since discordance with absolute values may lead to misinterpretation of CBC data. Current Interpretive Data was last revised on 2017. Blood 08/05/2024 12:4 6 PM CDT 08/05/2024 12:46 PM CDT us Connie Manrique SLEEVE SEPARATOR LAB BLOOD ORDERABLES Final Re sult [facility] [address] [place] [address] * CBC with auto differential (08/05/2024 12:46 PM CDT) [facility] WBC 4.21 3.80 - 9.90 K/cumm Hgb 14.5 11.9 - 15.5 g/dL [facility] Hct 43.6 35.6 - 45.5 % [facility] Plt 311 150 - 400 K/cumm [facility] MPV 10.6 9.1 - 12.3 fL [facility] RBC 4.79 3.90 - 5.20 M/cumm [facility] MCV 91.0 81.3 - 96.4 fL [facility] MCH 30.3 27.1 - 33.3 pg [facility] MCHC 33.3 32.3 - 35.7 g/dL [facility] RDW CV 12.3 11.1 - 14.9 % [facility] RDW SD 41.1 35.7 - 48.1 fL [facility] NRBC abs 0.00 0.00 - 0.01 K/cumm [facility] Blood 08/05/2024 12:4 6 PM CDT 08/05/2024 12:46 PM CDT Connie Manrique SLEEVE SEPARATOR LAB BLOOD ORDERABLES Final Re sult [facility] [address] [place] [address] * Hemoglobin A1c (08/05/2024 12:46 PM CDT) [facility] Hgb A1C 5.3 4.0 - 5.6 % Estimated Average Glucose 105 mg/dL [facility] Comment: The ADA recommends reporting an estimated Average Glucose (eAG) with all Hemoglobin A1c results using the equation derived from a study of 507 normal and diabetic adults. Minority populations were underrepresented and children were not included. (Diabetes Care 31:1142-8239, 2008). The eAG is not equivalent to a fasting glucose. Blood 08/05/2024 12:4 6 PM CDT 08/05/2024 12:46 PM CDT Connie Manrique SLEEVE SEPARATOR LAB BLOOD ORDERABLES Final Re sult [facility] [address] Department [place] [address] * COLONOSCOPY (09/11/2023) Scribed Colonoscopy Normal Historical Provider MD HEALTH MAINTENANCE Final Result * PAP SMEAR (05/04/2023) Historical Provider HEALTH MAINTENANCE Final Result from Last 3 Months or Most Recently Relevant to Health Maintenance [place] [address] [facility]ITALCloudBolt SoftwareOC[facility] [place] [address] [facility] HOSPITALKang Hui Medical Instrument [facility] Care Teams Email Deployment Specialist Relationship Specialty Start Date End Date Ivory Chou MD [address] [facility] [address] [place] [address] PCP - General Internal Medicine 07/20/23 Codie Mittal MD [address] [place], [place] [id number] Referring Physician Gynecology 03/03/22 Tristin Mosley MD [address] [place], [place] [id number] Cardiovascular Disease 03/04/22
--- OUTSIDE RECORDS SUMMARY | 2024-10-21 11:56 | XMS_ITS | Clinical Summary ---
Author Organization [employer] [facility] Address [address] [place]: Epic Prelude ADT [place] [address] Care Team Providers Care Oral And Maxillofacial Surgery Resident Name Role Phone Unavailable Primary Care Provider Unavailabl e Medications nitrofurantoin (MACROBID) 100 mg capsule Take 1 Capsule (100 mg) by mouth every 12 hours. 10 Capsule 09/23/2021 6:23 PM CDT 09/23/2021 Active rizatriptan (MAXALT MACHINE SAND MIXER) 10 mg Tablet, Rapid Dissolve Dissolve 1 tablet (10 mg total) by mouth once as needed for migraine. May repeat dose in 2 hours if unresolved. Do not exceed 3 tablets ( 30 mg ) in 24 hours. 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
--- OUTSIDE RECORDS SUMMARY | 2024-10-21 11:56 | XMS_ITS | Encounter Summary ---
Author Organization [employer] Address 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
--- OUTSIDE RECORDS SUMMARY | 2024-10-21 11:56 | XMS_ITS | Encounter Summary ---
Author Organization [facility] Address [address] [place] [address] Phone Care Team Providers Care Brinell Tester Name Role Phone Codie Mittal MD Unavailable [phone] Tristin Mosley MD Unavailable Ivory Chou MD Primary Care Provider Encounter Details Date Type Department Care Team (Late st Contact Info) Description 09/03/2024 Results Follow-Up [facility] Oncology [address] [place] [address] SheltonMarleni martin MD [address] [place], [place] [id number] Screening Mammogram Bilateral W Miguel Social History Tobacco Use Types Packs/Day Years [...] on file 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 Gender Identity Not on file Sexual Orientation Not on file documented as of this encounter Plan of Treatment Not on file documented as of this encounter Visit Diagnoses Not on filedocumented in this encounter Care Teams Brinell Tester Relationship Specialty Start Date End Date Ivory Chou MD [address] [place] [address] PCP - General Internal Medicine 07/20/23 Codie Mittal MD [address] [place] [address] Referring Physician Gynecology 03/03/22 Tristin Mosley MD [address] [place], [place] [phone] Cardiovascular Disease 03/04/22 documented as of this encounter
--- OUTSIDE RECORDS SUMMARY | 2024-10-21 11:56 | XMS_ITS | Encounter Summary ---
Author Organization [employer] Address 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
--- OUTSIDE RECORDS SUMMARY | 2024-10-21 11:56 | XMS_ITS | Encounter Summary ---
Author Organization [employer] Address 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
--- OUTSIDE RECORDS SUMMARY | 2024-10-21 11:56 | XMS_ITS | Encounter Summary ---
Author Organization [email or web address] Address 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
--- OUTSIDE RECORDS SUMMARY | 2024-10-21 11:56 | XMS_ITS | Clinical Summary ---
Author Organization [facility] Address [address] [place] [address] Care Team Providers Care Tin Container Straightener Name Role Phone Codie Mittal MD Unavailable [phone] Tristin Mosley MD Unavailable Ivory Chou MD Primary Care Provider Allergies Active Allergy Reactions Criticality Noted Date Comments Cat Dander Sneezing High 05/04/2022 Medications MAGNESIUM CITRATE ORAL Take 250 mg by mouth daily Active rizatriptan HEALTH INSURANCE ADJUSTER (MAXALT-HEALTH INSURANCE ADJUSTER) 10 mg disintegrating tabletIndications: Migraine Take 1 tablet (10 mg total) by mouth once as needed for migraine May repeat in 2 hours if unresolved. Do not exceed 30 mg in 24 hours. 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 C-scope scheduled 09/2023 at [facility]. - Send records w/ updated records [...] breast cancer 03/08/2023 07/20/2023 Abnormal mammogram 05/04/2022 Family history of breast cancer 05/04/2022 07/20/2023 Dense breast tissue on mammogram 05/04/2022 07/20/2023 Breast cancer screening, high risk patient 05/04/2022 08/05/2024 Assessment & Plan (07/20/2023 2:09 PM CDT): Follows with Dr. Agarwal. MRI and mammogram UTD 02/2023, doing both again 02/2024 then start alternating Q6 months. Encounter for nonprocreative genetic counseling and testing 05/04/2022 07/20/2023 Encounters Date Type Department Care Team Description 10/21/2024 Nurse Triage [facility] [address] [address] Ivory Chou MD 10/03/2024 Orders Only [facility] - [facility] [address] [place] [address] [place] [phone] Billy Elise MD Thyroglossal duct cyst (Primary Dx) 10/03/2024 Results Follow-Up [facility] - [facility] [address] [place] [address] [place] [phone] Soft Tissue Neck with Contrast 10/01/2024 2:03 PM CDT - 10/01/2024 11:59 PM CDT Hospital Encounter [facility] - Imaging [address] [place] [phone] Billy Elise MD Thyroglossal duct cyst Discharge Disposition: Discharge to home or self care 09/23/2024 2:00 PM CDT Office Visit [facility] - [address] [place] [phone] Billy Elise MD Gastroesophageal reflux disease with esophagitis without hemorrhage (Primary Dx); Thyroglossal duct cyst 09/04/2024 Results Follow-Up [facility] Primary [facility] at [facility] [address] [place] [address] Ivory Chou MD US Thyroid 09/03/2024 Results Follow-Up [facility] Oncology [address] [place] [phone] Marleni Agarwal MD Screening Mammogram Bilateral W Miguel 09/02/2024 1:08 PM CDT - 09/02/2024 11:59 PM CDT Hospital Encounter [facility] - Imaging [address] [place] [address] Thyromegaly Discharge Disposition: Discharge to home or self care 09/02/2024 10:03 AM CDT - 09/02/2024 11:59 PM CDT Hospital Encounter [facility] - Imaging [address] [place] [address] Breast cancer screening by mammogram; Encounter for screening mammogram for breast cancer Discharge Disposition: Discharge to home or self care 08/05/2024 1:00 PM CDT Office Visit [facility] at [facility] [address] [place] [address] Ivory Chou MD Encounter for preventive health examination (Primary Dx); Heterogeneously dense tissue of both breasts on mammography; Pure hypercholesterolemia; Hypothyroidism, unspecified type; Migraine without aura and without status migrainosus, not intractable; History of colon polyps; Varicose veins of calf; Need for Tdap vaccination; Hyperlipidemia, unspecified hyperlipidemia type; Thyromegaly; Elevated blood pressure reading without diagnosis of hypertension; Fatigue, unspecified type 08/05/2024 9:10 AM CDT Lab [facility] [address] [place] [address] Annual physical exam from Last 3 Months Immunizations Immunization Administration Dates Next Due COVID-19 mRNA (PFIZER) 0.3 m L (30 mcg) vaccine (12 years and up) 01/23/2024 Influenza, Quadrivalent, Spl it, Preservative Free, Intramuscular 01/31/2022,03/03/2021 Influenza, Unspecified 01/26/2023 Tdap 08/05/2024 ZOSTER Recombinant 07/21/2023,12/23/2022 Surgical History Surgery Date Site/Laterality Comments BREAST BIOPSY 10/27/2022 Right Medical History Medical History Date Comments Hypothyroidism Hyperlipidemia Family History Medical History Relation Name Comments Prostate cancer Brother Heart attack Father Eyal Lim Heart attack @ 39yrs Father Eyal Lim Alzheimer's disease Maternal Grandmother Sandra Vidal er Breast cancer Mother Flor Morrison Cancer Mother Flor Morrison Relation Name Status Comments Brother Alive Father Eyal Lim Maternal Grandmother Sandra Jim Mother Flor Morrison Alive Social History Tobacco Use Types Packs/Day Years [...] on file Legal Sex Female 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 Gender Identity Not on file Sexual Orientation Not on file Obstetrics History Para Term AB IAB SAB Ectopic Multiple Livin g Live Births 0 0 0 0 0 0 0 0 0 0 0 Last Filed Vital Signs Vital Sign Reading Time Taken Comments Blood Pressure 154/90 08/05/2024 1:02 PM CDT Pulse 77 08/05/2024 1:02 PM CDT Temperature 36.6 C (97.8 F) 03/06/2024 1:55 PM TRIMMER AND REINFORCER Respiratory Rate 17 03/06/2024 1:55 PM TRIMMER AND REINFORCER Oxygen Saturation 98% 08/05/2024 1:02 PM CDT Inhaled Oxygen Concentration - - Weight 81.6 kg (180 lb) 09/02/2024 10:26 AM CDT Height 165.1 cm (5' 5) 09/02/2024 10:26 AM CDT Body Mass Index 29.95 09/02/2024 10:26 AM CDT Plan of Treatment Health Maintenance Due Date Last Done Comments Hepatitis C Screening 1960 Cervical Cancer Screening 05/15/2025 05/15/2024, 02/2024 Depression Screening 08/05/2025 08/05/2024, 07/20/19 Regular Well Visit/Exam 18-64 08/05/2025 08/05/2024 Breast Cancer Screening-Mammogram 09/02/2025 09/02/2024, 03/06/2023 Colon Cancer Screening-Colonoscopy 09/10/2028 09/11/2023 DTaP/Tdap/Td Vaccine (2 - Td or Tdap) 08/05/2034 08/05/2024 Zoster Vaccine Completed 07/21/2023, 12/23/2022 Covid-19 Vaccine Completed 01/23/2024, 01/2022, 03/03/2021, Additional history exists Influenza Vaccine Completed 02/06/2024, , 01/31/2022, Additional history exists Hepatitis B Screening Discontinued Pneumococcal vaccine <65 Aged Out No longer eligible based on patient's age to complete this topic Medical Devices Implanted Type Area Learning Program Manager Device Identifier Shelf Expiration Date Model / Serial / Lot [employer] Guide 15ga Coaxial Needle Ultrasound Breast Boipsy Coil 1 Titanium Hydromark 4009-06-08-T1 - [id number] Implanted:Qty: 1 on 10/27/2022 at [facility] [employer] [id number] -T1 / / [id number] Procedures Procedure Name Priority Date/Time Associated Diagnosis [...] and agrees with it. Electronically signed by: MD Britni Cortez 10/01/2024 3:14 PM CDT EXAMINATION: CT of [...] are normal. The limited view of the [place] of [place] is unremarkable. The visualized portions [...] are normal. The limited view of the [place] of [place] is unremarkable. The visualized portions [...] follow-up Electronically signed by: Jay Paz M.D. us Ivory Chou MD [facility] US PROCEDURES Cyndy l Result * Screening [...] calcification, or architectural distortion in either breast. us Marleni Agarwal MD [facility] MAMMO PROCEDURES Final Result * eGFR (08/05/2024 [...] CDT 08/05/2024 12:47 PM CDT Connie Manrique ENVIRONMENTAL PROGRAM MANAGER LAB BLOOD ORDERABLES Final Re sult Performing Organization Address [facility] Co de Phone Number [facility] [address] [facility] [place] [address] * Thyroid Function Paradis (08/05/2024 12:47 PM CDT) Pathologist [facility] TSH 3.38 0.30 - 4.20 mcIUnit/mL Blood 08/05/2024 12:4 7 PM CDT 08/05/2024 12:47 PM CDT Connie Manrique ENVIRONMENTAL PROGRAM MANAGER LAB BLOOD ORDERABLES Final Re sult Performing Organization Address [facility] de Phone Number [facility] [address] [facility] [place] [address] * Vitamin D 25 hydroxy (08/05/2024 12:47 PM CDT) Pathologist [facility] Vitamin D 25-OH 41 30 - 80 ng/mL Blood 08/05/2024 12:4 7 PM CDT 08/05/2024 12:47 PM CDT Connie Manrique ENVIRONMENTAL PROGRAM MANAGER LAB BLOOD ORDERABLES Final Re sult Performing Organization Address [facility] de Phone Number [facility] [address] Department [employer] [place], [place] [phone] * (ABNORMAL) Lipid panel (08/05/2024 12:47 PM [...] revised on 2017. Triglycerides 195(H) <=149 mg/dL [facility] Comment: Interpretive Data Ages < or = [...] revised on 2017. HDL 57 >=40 mg/dL [facility] Comment: Interpretive Data Ages < or = [...] on 2017. LDL, calculated 165(H) <=129 mg/dL [facility] Comment: Interpretive Data Ages < or = 19 years Acceptable: <110 mg/dL Borderline high: 110-129 mg/dL High: >or= 130 mg/dL Ages > or = 20 years Optimal: <100 mg/dL Near optimal: 100-129 mg/dL Borderline high: 130-159 mg/dL High: >160 mg/dL Calculated using the Alaniz LDL-C estimating equation. This equation was implemented on 2023. Prior to this date LDL-C was estimated using the Friedewald equation. Literature References: 1. Expert Panel on Integrated Guidelines for Cardiovascular Health and Risk Reduction in Children and Adolescents. Pediatrics 2011;128:S213 2. NCEP Expert Panel. Circulation 2004;110:227 3. Corbin M et al. JOLYNN Cardiol. 2020 August 22;5(5):540-548. doi: 10.1001/jamacardio.2020.0013 Current Interpretive Data was last revised on 2023. Non-HDL Cholesterol 201 mg/dL [facility] Comment: Interpretive Data Ages < or = [...] last revised on 2017. Chol/HDL ratio 5 [facility] Blood 08/05/2024 12:4 7 PM CDT 08/05/2024 12:47 PM CDT Connie Manrique ENVIRONMENTAL PROGRAM MANAGER LAB BLOOD ORDERABLES Final Re sult [facility] [address] Department [place] [address] * Comprehensive metabolic panel (08/05/2024 12:47 PM CDT) Sodium 139 135 - 145 mmol/L Potassium, pl 4.7 3.3 - 4.9 mmol/L [facility] Chloride 101 97 - 110 mmol/L [facility] CO2 24 22 - 32 mmol/L [facility] Anion gap 14 2 - 15 mmol/L [facility] BUN 18 6 - 25 mg/dL [facility] Creatinine 0.61 0.60 - 1.10 mg/dL [facility] Glucose 80 70 - 199 mg/dL [facility] Comment: Interpretive Data Fasting glucose >/= 126 [...] 2022. Calcium 9.9 8.5 - 10.3 mg/dL [facility] Bilirubin, total 0.3 0.1 - 1.2 mg/dL [facility] Protein, pl 6.9 6.5 - 8.5 g/dL [facility] Albumin 4.4 3.5 - 5.0 g/dL [facility] Alk phos 98 40 - 130 Units/L [facility] ALT 22 7 - 45 Units/L [facility] AST 22 10 - 45 Units/L [facility] Comment:Slightly Hemolyzed S pecimen Blood 08/05/2024 12:4 7 PM CDT 08/05/2024 12:47 PM CDT Connie Manrique ENVIRONMENTAL PROGRAM MANAGER LAB BLOOD ORDERABLES Final Re sult [facility] [address] [place] [address] * Differential, auto (08/05/2024 12:46 PM CDT) Neutrophil abs 2.20 1.50 - 6.50 K/cumm Imm gran abs 0.01 0.00 - 0.10 K/cumm [facility] Lymphocyte abs 1.55 0.80 - 3.30 K/cumm [facility] Monocyte abs 0.28 0.20 - 0.80 K/cumm [facility] Eosinophil abs 0.15 0.00 - 0.50 K/cumm [facility] Basophil abs 0.02 0.00 - 0.10 K/cumm [facility] Neutrophil pct 52.2 % [facility] Comment: Interpretive Data Percent cell count reference ranges are not reported, since discordance with absolute values may lead to misinterpretation of CBC data. Current Interpretive Data was last revised on 2017. Imm gran pct 0.2 % [facility] Comment: Interpretive Data Percent cell count reference ranges are not reported, since discordance with absolute values may lead to misinterpretation of CBC data. Current Interpretive Data was last revised on 2017. Lymphocyte pct 36.8 % [facility] Comment: Interpretive Data Percent cell count reference ranges are not reported, since discordance with absolute values may lead to misinterpretation of CBC data. Current Interpretive Data was last revised on 2017. Monocyte pct 6.7 % [facility] Comment: Interpretive Data Percent cell count reference ranges are not reported, since discordance with absolute values may lead to misinterpretation of CBC data. Current Interpretive Data was last revised on 2017. Eosinophil pct 3.6 % [facility] Comment: Interpretive Data Percent cell count reference ranges are not reported, since discordance with absolute values may lead to misinterpretation of CBC data. Current Interpretive Data was last revised on 2017. Basophil pct 0.5 % [facility] Comment: Interpretive Data Percent cell count reference ranges are not reported, since discordance with absolute values may lead to misinterpretation of CBC data. Current Interpretive Data was last revised on 2017. Blood 08/05/2024 12:4 6 PM CDT 08/05/2024 12:46 PM CDT us Connie Manrique ENVIRONMENTAL PROGRAM MANAGER LAB BLOOD ORDERABLES Final Re sult [facility] [address] Department [place] [address] * CBC with auto differential (08/05/2024 12:46 PM CDT) WBC 4.21 3.80 - 9.90 K/cumm Hgb 14.5 11.9 - 15.5 g/dL [facility] Hct 43.6 35.6 - 45.5 % [facility] Plt 311 150 - 400 K/cumm [facility] MPV 10.6 9.1 - 12.3 fL [facility] RBC 4.79 3.90 - 5.20 M/cumm [facility] MCV 91.0 81.3 - 96.4 fL [facility] MCH 30.3 27.1 - 33.3 pg [facility] MCHC 33.3 32.3 - 35.7 g/dL [facility] RDW CV 12.3 11.1 - 14.9 % [facility] RDW SD 41.1 35.7 - 48.1 fL [facility] NRBC abs 0.00 0.00 - 0.01 K/cumm [facility] Blood 08/05/2024 12:4 6 PM CDT 08/05/2024 12:46 PM CDT us Connie Manrique NP LAB BLOOD ORDERABLES Final Re sult Performing Organization Address [facility] de Phone Number [facility] [address] [employer] [place], [place] [id number] * Hemoglobin A1c (08/05/2024 12:46 PM CDT) Pathologist [facility] Hgb A1C 5.3 4.0 - 5.6 % Estimated Average Glucose 105 mg/dL [facility] Comment: The ADA recommends reporting an estimated Average Glucose (eAG) with all Hemoglobin A1c results using the equation derived from a study of 507 normal and diabetic adults. Minority populations were underrepresented and children were not included. (Diabetes Care 31:3846-0102, 2008). The eAG is not equivalent to a fasting glucose. Blood 08/05/2024 12:4 6 PM CDT 08/05/2024 12:46 PM CDT us Connie Manrique NP LAB BLOOD ORDERABLES Final Re sult Performing Organization Address City/[facility]/ZIP Co de Phone Number [facility] [address] [facility] [employer] [place], [place] [id number] * COLONOSCOPY (09/11/2023) Scribed Colonoscopy Normal Historical Provider HEALTH MAINTENANCE Final Result * PAP SMEAR (05/04/2023) Historical Provider HEALTH MAINTENANCE Final Result from Last 3 Months or Most Recently Relevant to Health Maintenance Insurance [facility] Care Teams Tin Container Straightener Relationship Specialty Start Date End Date Ivory Chou MD [address] [facility] [address] [place] [address] PCP - General Internal Medicine 07/20/23 Codie Mittal MD [address] [place], [place] [phone] Referring Physician Gynecology 03/03/22 Tristin Mosley MD [address] [place], [place] [phone] Cardiovascular Disease 03/04/22
--- NOTE | 2024-10-21 11:57 | ED_ITS ---
HPI - Chest Pain General Chief Complaint: Chest Pain <Jaen Betts APRN - Last Filed: 10/21/24 12:00> Stated Complaint: Chest heaviness, low BP x 2 <Jane Betts APRN - Last Filed: 10/21/24 12:00> Time Seen by Provider: 10/21/24 11:55 <Jane Betts APRN - Last Filed: 10/21/24 12:00> Focused HPI: Patient is a 64-year-old female presents to the ER with chest pain that started last night and continued into this morning. She reports the pain is in the center of her chest. Patient endorses shortness of breath, and cold sweats this morning. She endorses a history of abnormal thyroid, hyperlipidemia, GERD, and seasonal allergies. Patient denies any back pain, urinary symptoms, jaw pain, or shoulder pain. GENERAL: Well-appearing, well-nourished, and in no acute distress. HEAD: Normocephalic, atraumatic. CHEST: Clear to auscultation. ?No respiratory distress. HEART: Regular rate and rhythm.? NEURO: ?Alert and oriented x3. Patient screened in triage and initial orders placed.? ?Additional care and disposition to be based upon?diagnostic testing and treatment. <Jane Betts APRN - Last Filed: 10/21/24 12:00> History of Present Illness HPI narrative: As reviewed above in HPI. Well select at the patient has a strong family history of coronary disease with her father dying of a heart attack at 39 years of age. She has high LDLs and recently up titrated on her atorvastatin for this. No history of cardiac events in the past for herself. <Riki Bah MD - Last Filed: 10/21/24 22:19> Related Data Home Medications: Home Medications ?Medication ?Instructions ?Recorded ?Confirmed ?Last Taken ?Type cetirizine 10 mg tablet (Zyrtec) 10 mg PO DAILY 07/11/19 10/21/24 10/20/24 History lansoprazole 15 mg capsule,delayed 15 mg PO DAILY 07/11/19 10/21/24 10/20/24 History release (Prevacid 24Hr) omega-3 fatty acids 1,000 mg 1,000 mg PO DAILY 07/11/19 10/21/24 10/20/24 History capsule (Fish Oil Concentrate) ascorbic acid (vitamin C) 1,000 mg 1 g PO DAILY 06/09/20 10/21/24 10/20/24 History tablet rgbpzwiqhzuw-Qg-pflx-minerals 18 1 tablet PO DAILY 06/09/20 10/21/24 10/20/24 History mg-0.4 mg tablet aspirin 81 mg tablet 81 mg PO DAILY 09/04/23 10/21/24 10/21/24 History atorvastatin 20 mg tablet 40 mg PO DAILY 10/21/24 10/21/24 10/20/24 History magnesium citrate 250 mg PO DAILY 10/21/24 10/21/24 10/20/24 History <Jane Betts APRN - Last Filed: 10/21/24 12:00> Allergies/Adverse Reactions: Allergies Allergy/AdvReac Type Severity Reaction Status Date / Time cat dander Allergy Mild Swelling Verified 10/21/24 13:32 of Lip/Tongue/Throat pollen extracts Allergy Mild Sneezing Verified 10/21/24 13:32 <Jane Betts APRN - Last Filed: 10/21/24 12:00> Review of Systems 2 Review of Systems: As reviewed above in HPI <Riki Bah MD - Last Filed: 10/21/24 22:19> [facility] Past Medical History Medical History: Medical History (Updated 10/21/24 @ 22:19 by Riki Bah MD) Endometriosis Hypothyroidism GERD (gastroesophageal reflux disease) HTN (hypertension) HLD (hyperlipidemia) Adenomatous colon polyp Basal cell carcinoma <Jane Betts APRN - Last Filed: 10/21/24 12:00> Surgical History Surgical History: Surgical History Status post full thickness skin graft <Jane Betts APRN - Last Filed: 10/21/24 12:00> Family History Family History: Family History Sibling Malignant neoplasm of prostate Mother Family history of malignant neoplasm of breast in first degree relative Father Family history of coronary artery disease, Onset Age: 39 Acute myocardial infarction Other Family history of malignant neoplasm <Jane Betts APRN - Last Filed: 10/21/24 12:00> Social History Social History: Social History Smoking packs per day: 1 Smoking cigarettes per day: 20.0 Years smoked: 10 Smoking pack-years: 10.00 Smoking status: Former smoker Tobacco type: cigarettes Alcohol intake: current Drinks per week: 4 Alcohol use details: WINE Substance use: never Substance use type: does not use Do You Feel Safe in your Home?: Yes Lack of Transportation: No Lack of Food: Never True Current Housing: I Have Housing Concerned About Future Housing: No Difficulty Paying Gas/Electric Bills: No Difficulty Paying for Meds: No Currently Unemployed: No Education: Don't Know Difficulty w/ Childcare or Family Care: No Living arrangements: with family Spiritual care concerns: No <Jane Betts APRN - Last Filed: 10/21/24 12:00> Exam 2 Narrative: GENERAL: [Well-appearing, well-nourished, and in no acute distress.] HEAD: [Normocephalic, atraumatic.] EYES: [PERRLA and EOMI.] ENT: Nares clear, no rhinorrhea or epistaxis. Mucous membranes moist. NECK: Supple. CHEST: [Clear to auscultation. No respiratory distress.] HEART: [Regular rate and rhythm]. No murmur heard. [Normal peripheral pulses.] ABDOMEN: [Soft, nondistended], [nontender], [No rigidity or guarding] EXTREMITIES: Normal range of motion. [No edema.] SKIN: Warm, dry, no rash. NEURO: [No focal deficits]. Alert and oriented [x3.] PSYCH: [Normal mood and affect.] <Riki Bah MD - Last Filed: 10/21/24 22:19> Course Vital Signs Vital signs: Vital Signs Temperature 36.6 C 10/21/24 11:47 Pulse Rate 72 10/21/24 11:47 Respiratory Rate 20 10/21/24 11:47 Blood Pressure 141/78 H 10/21/24 11:47 Pulse Oximetry 99 10/21/24 11:47 Oxygen Delivery Room Air 10/21/24 11:47 Temperature 36.7 C 10/21/24 20:00 Pulse Rate 71 10/21/24 20:00 Respiratory Rate 18 10/21/24 20:00 Blood Pressure 112/69 10/21/24 20:00 Pulse Oximetry 99 10/21/24 20:00 Oxygen Delivery Room Air 10/21/24 20:00 <Jane Betts APRN - Last Filed: 10/21/24 12:00> Vital Signs Temperature 36.6 C 10/21/24 11:47 Pulse Rate 72 10/21/24 11:47 Respiratory Rate 20 10/21/24 11:47 Blood Pressure 141/78 H 10/21/24 11:47 Pulse Oximetry 99 10/21/24 11:47 Oxygen Delivery Room Air 10/21/24 11:47 Temperature 36.7 C 10/21/24 20:00 Pulse Rate 71 10/21/24 20:00 Respiratory Rate 18 10/21/24 20:00 Blood Pressure 112/69 10/21/24 20:00 Pulse Oximetry 99 10/21/24 20:00 Oxygen Delivery Room Air 10/21/24 20:00 <Riki Bah MD - Last Filed: 10/21/24 22:19> MDM - Chest Pain MDM Narrative Medical decision making narrative: 64-year-old female with history of hypertension hyperlipidemia and a family history of coronary disease at a young age. She presents to the emergency department with chest discomfort, midsternal chest pressure and shortness of breath with exertion as well as indigestion sensations. Symptoms intermittent since yesterday and resolved this morning. She states she felt weak and shortness a breath when she did minimal activity such as going up and down stairs which is unusual for her. She is a previous smoker and quit 20+ years ago. She is not any acute distress and denies any symptoms at this time and states she feels well. Vital signs are reassuring without any significant blood pressure concerns, tachycardia, fever, hypoxia. Strong symmetric pulses, answer all questions appropriately. Differential includes musculoskeletal chest pain, angina, ACS, pneumonia, pneumothorax, low suspicion vascular pathology. Workup ordered including CBC, CMP, troponin, EKG and chest x-ray. She was given aspirin and re-evaluated. Workup reveals no leukocytosis or anemia. Normal platelet count. Unremarkable coagulation panel. Normal renal function, normal hepatic function. Normal electrolytes. Normal glucose negative lipase. Troponin is elevated 0.059. EKG reviewed does not have any ST segment elevations, depressions or acute inversions. Will trend with serial EKGs and troponins and she was given a shot of 1 milligram/kilogram Lovenox for NSTEMI. Discussed the case with the patient and the family members at bedside and our plan will be to admit her for cardiology evaluation and stress testing on inpatient basis and Cardiology consult ordered. Awaiting discussion with hospitalist team for admission to IMU. Hospitalist team is accepted the patient to the IMU, patient and family comfortable with the plan and admission orders placed. <Riki Bah MD - Last Filed: 10/21/24 22:19> Medical Records Data Attestation: I reviewed the patient's medical records. <Riki Bah MD - Last Filed: 10/21/24 22:19> Lab Data Attestation: I reviewed the patient's lab results. <Riki Bah MD - Last Filed: 10/21/24 22:19> Result diagrams: 10/21/24 11:45 10/21/24 11:45 <Jane Betts APRN - Last Filed: 10/21/24 12:00> Labs: Lab Results 10/21/24 Range/Units 11:45 WBC 5.3 (4.5-10.0) K/mm3 RBC 4.78 (4.2-5.4) M/mm3 Hgb 14.3 (12.0-15.0) g/dL Hct 42.6 (37.0-47.0) % MCV 89.1 (80-100) fl MCH 29.9 (26-34) pg MCHC 33.6 (32-36) g/dl RDW 11.9 (11.5-14.5) % Plt Count 273 (150-375) k/mm3 MPV 10.3 (7.4-10.4) fl Immature Gran % (Auto) 0.2 (0-0.5) % Neut % (Auto) 71.2 (45.5-73.1) % Lymph % (Auto) 21.5 (18.3-44.2) % Crawford % (Auto) 6.3 (2.6-8.5) % Eos % (Auto) 0.6 (0-4.4) % Baso % (Auto) 0.2 (0.2-1.2) % Lymph # (Auto) 1.13 (0.9-3.2) K/mm3 Crawford # (Auto) 0.3 (0.1-0.6) K/mm3 Eos # (Auto) 0.0 (0-0.3) K/mm3 Baso # (Auto) 0.0 (0.0-0.1) K/mm3 Abs Immat Gran (auto) 0.01 (0.00-0.031) K/mm3 Absolute Neuts (auto) 3.7 (1.3-6.7) K/mm3 Absolute Nucleated RBC 0.000 (0.0-0.012) K/mm3 Nucleated RBC % 0.0 (0.0-0.2) % PT 13.6 (11.1-14.7) Seconds INR 1.0 APTT 26.8 (22.3-36.8) Seconds Sodium 140 (137-145) mmol/L Potassium 3.8 (3.4-5.0) mmol/L Chloride 105 (98-107) mmol/L Carbon Dioxide 26 (22-30) mmol/L Anion Gap 9 (4-12) mmol/L BUN 24 H (7-17) mg/dL Creatinine 0.77 (0.7-1.0) mg/dL Estim Creat Clear Calc 69 ml/min Estimated GFR > 60 (59 - ) Glucose 115 H (65-110) mg/dL Calcium 9.6 (8.4-10.2) mg/dL Total Bilirubin 0.4 (0.2-1.3) mg/dL AST 26 (14-36) U/L ALT 25 (6-35) U/L Alkaline Phosphatase 70 (38-126) U/L Troponin I 0.059 H* (0.000-0.034) ng/mL Total Protein 6.7 (6.3-8.2) g/dL Albumin 4.3 (3.5-5.1) g/dL Lipase 73 (23-300) U/L <Jane L. Stanfield, [employer]BIN[employer]IL OPERATOR - Last Filed: 10/21/24 12:00> Lab Results 10/21/24 Range/Units 11:45 WBC 5.3 (4.5-10.0) K/mm3 RBC 4.78 (4.2-5.4) M/mm3 Hgb 14.3 (12.0-15.0) g/dL Hct 42.6 (37.0-47.0) % MCV 89.1 (80-100) fl MCH 29.9 (26-34) pg MCHC 33.6 (32-36) g/dl RDW 11.9 (11.5-14.5) % Plt Count 273 (150-375) k/mm3 MPV 10.3 (7.4-10.4) fl Immature Gran % (Auto) 0.2 (0-0.5) % Neut % (Auto) 71.2 (45.5-73.1) % Lymph % (Auto) 21.5 (18.3-44.2) % Crawford % (Auto) 6.3 (2.6-8.5) % Eos % (Auto) 0.6 (0-4.4) % Baso % (Auto) 0.2 (0.2-1.2) % Lymph # (Auto) 1.13 (0.9-3.2) K/mm3 Crawford # (Auto) 0.3 (0.1-0.6) K/mm3 Eos # (Auto) 0.0 (0-0.3) K/mm3 Baso # (Auto) 0.0 (0.0-0.1) K/mm3 Abs Immat Gran (auto) 0.01 (0.00-0.031) K/mm3 Absolute Neuts (auto) 3.7 (1.3-6.7) K/mm3 Absolute Nucleated RBC 0.000 (0.0-0.012) K/mm3 Nucleated RBC % 0.0 (0.0-0.2) % PT 13.6 (11.1-14.7) Seconds INR 1.0 APTT 26.8 (22.3-36.8) Seconds Sodium 140 (137-145) mmol/L Potassium 3.8 (3.4-5.0) mmol/L Chloride 105 (98-107) mmol/L Carbon Dioxide 26 (22-30) mmol/L Anion Gap 9 (4-12) mmol/L BUN 24 H (7-17) mg/dL Creatinine 0.77 (0.7-1.0) mg/dL Estim Creat Clear Calc 69 ml/min Estimated GFR > 60 (59 - ) Glucose 115 H (65-110) mg/dL Calcium 9.6 (8.4-10.2) mg/dL Total Bilirubin 0.4 (0.2-1.3) mg/dL AST 26 (14-36) U/L ALT 25 (6-35) U/L Alkaline Phosphatase 70 (38-126) U/L Troponin I 0.059 H* (0.000-0.034) ng/mL Total Protein 6.7 (6.3-8.2) g/dL Albumin 4.3 (3.5-5.1) g/dL Lipase 73 (23-300) U/L <Riki Bah MD - Last Filed: 10/21/24 22:19> Imaging Data Attestation: I personally reviewed and interpreted this imaging study as follows: < Riki Bah MD - Last Filed: 10/21/24 22:19> My impression: Impressions Chest X-Ray 10/21/24 12:51 IMPRESSION: No acute cardiopulmonary pathology. <Riki Bah MD - Last Filed: 10/21/24 22:19> Critical Care Time Critical Care Time Critical Care Time: Yes <Riki Bah MD - Last Filed: 10/21/24 22:19> Total Critical Care Time: 35 <Riki Bah MD - Last Filed: 10/21/24 22:19> Discharge Plan Discharge Clinical Impression: Acute non-ST elevation myocardial infarction (NSTEMI), Chest pain <Jane Betts APRN - Last Filed: 10/21/24 12:00> Patient Disposition: Still a Patient <Jane Betts APRN - Last Filed: 10/21/24 12:00> Condition: Guarded Prognosis <Jane Betts APRN - Last Filed: 10/21/24 12:00>
[2024-10-21 12:05] LABS: Alanine Aminotransferase 25 U/L (6-35); Albumin Level 4.3 g/dL (3.5-5.1); Alkaline Phosphatase 70 U/L (38-126); Anion Gap 9 mmol/L (4-12); Aspartate Amino Transferase 26 U/L (14-36); Bilirubin,Total 0.4 mg/dL (0.2-1.3); Blood Urea Nitrogen 24 mg/dL (7-17); Calcium 9.6 mg/dL (8.4-10.2); Carbon Dioxide 26 mmol/L (22-30); Chloride 105 mmol/L (98-107); Estimated CRCL calculation 69 ml/min; Estimated Glomerular Filt Rate > 60; Glucose 115 mg/dL (65-110); Lipase 73 U/L (23-300); Potassium 3.8 mmol/L (3.4-5.0); Sodium 140 mmol/L (137-145); Total Protein 6.7 g/dL (6.3-8.2)
[2024-10-21 12:06] LABS: INR 1.0; Prothrombin Time 13.6 Seconds (11.1-14.7)
[2024-10-21 12:07] LABS: Partial Thromboplastin Time 26.8 Seconds (22.3-36.8)
[2024-10-21 12:23] LABS: Troponin I 0.059 ng/mL (0.000-0.034)
--- NOTE | 2024-10-21 13:29 | ECG_ITS ---
Test Date: 2024-10-21 14:47:01 Measurements Intervals [place] Rate: 66 P: 40 MS: 167 QRS: 63 QRSD: 94 T: 35 QT: 379 QTc: 398 Interpretive Statements SINUS RHYTHM NORMAL ECG Compared to ECG 10/21/2024 11:38:06 No significant changes Electronically Signed On 10-21-2024 15:29:41 CDT by George Moody D.O.
[2024-10-21] MEDS: ASPIRIN 81 MG CHEWABLE TABLET 324 MG PO (13:39)
--- NOTE | 2024-10-21 14:04 | P.HP_ITS ---
H&P: HPI History of Present Illness Date/Time: 10/21/24 14:04 Chief Complaint: Chest Pain Narrative: 64 y/o F with PMH of hypertension, hyperlipidemia, GERD, hypothyroidism, and BCC presents here with chest pain. The patient presents here from home for further evaluation of chest pain. She reports onset of midsternal chest pain last night while she was going to bed.Then overnight she got up to use the restroom and was very winded which is unusual for her as she exercised. Symptoms persisted until this morning. Patient also took her blood pressure this morning and it was 72/50 (repeated and checked against her 's who was normal). She described the chest pain as a heaviness, nonradiating, intermittent, and no modifying factors. Chest pain was accompanied by diaphoresis, dizziness, and shortness of breath with exertion. Did have very brief nausea overnight without vomiting and indigestion. Denies abdominal pain, diarrhea, or recent medication changes. Patient took medication for indigestion (Prevacid) with no effect. Currently denies chest pain/heaviness or recurrence. Patient has strong family history of heart disease - father of an VA at 39. Initial VS at presentation: 97.9? F, HR 72, R 20, 141/78, and 99% on RA. ED workup showed: No leukocytosis, no anemia, normal coags, no significant electrolyte derangements, creatinine 0.77 and GFR >60, and initial troponin 0.059. CXR showed no acute cardiopulmonary pathology. Initial EKG showed sinus rhythm, rate 79. Review of Systems Review of Systems: All systems reviewed & are unremarkable except as noted in HPI and below [facility] Past Medical History Medical History Migraine Endometriosis Hypothyroidism GERD (gastroesophageal reflux disease) HTN (hypertension) HLD (hyperlipidemia) Adenomatous colon polyp Basal cell carcinoma Surgical History Surgical History Status post full thickness skin graft Family History Family History Sibling Malignant neoplasm of prostate Mother Family history of malignant neoplasm of breast in first degree relative Father Family history of coronary artery disease, Onset Age: 39 Acute myocardial infarction Other Family history of malignant neoplasm Social History Social History Smoking packs per day: 1 Smoking cigarettes per day: 20.0 Years smoked: 10 Smoking pack-years: 10.00 Smoking status: Former smoker Tobacco type: cigarettes Alcohol intake: current Drinks per week: 4 Alcohol use details: WINE Substance use: never Substance use type: does not use Do You Feel Safe in your Home?: Yes Lack of Transportation: No Lack of Food: Never True Current Housing: I Have Housing Concerned About Future Housing: No Difficulty Paying Gas/Electric Bills: No Difficulty Paying for Meds: No Currently Unemployed: No Education: Don't Know Difficulty w/ Childcare or Family Care: No Living arrangements: with family Spiritual care concerns: No Meds Home Medications and Allergies Home Medications ?Medication ?Instructions ?Recorded ?Confirmed ?Type cetirizine 10 mg tablet (Zyrtec) 10 mg PO DAILY 07/11/19 10/21/24 History lansoprazole 15 mg capsule,delayed 15 mg PO DAILY 07/11/19 10/21/24 History release (Prevacid 24Hr) omega-3 fatty acids 1,000 mg 1,000 mg PO DAILY 07/11/19 10/21/24 History capsule (Fish Oil Concentrate) ascorbic acid (vitamin C) 1,000 mg 1 g PO DAILY 06/09/20 10/21/24 History tablet bonbkmotgjbn-Yq-vnti-minerals 18 1 tablet PO DAILY 06/09/20 10/21/24 History mg-0.4 mg tablet levothyroxine 112 mcg tablet 112 mcg PO DAILY #90 tabs 06/20/23 10/21/24 Rx aspirin 81 mg tablet 81 mg PO DAILY 09/04/23 10/21/24 History atorvastatin 20 mg tablet 40 mg PO DAILY 10/21/24 10/21/24 History magnesium citrate 250 mg PO DAILY 10/21/24 10/21/24 History Allergies Allergy/AdvReac Type Severity Reaction Status Date / Time cat dander Allergy Mild Swelling Verified 10/21/24 13:32 of Lip/Tongue/Throat pollen extracts Allergy Mild Sneezing Verified 10/21/24 13:32 Vital Signs Vital Signs - 24 hr 10/21/24 11:47 10/21/24 13:29 10/21/24 13:29 Temperature 97.9 F Pulse Rate 72 77 78 Respiratory Rate 20 18 18 Blood Pressure 141/78 H 123/81 123/81 Pulse Oximetry 99 97 97 Oxygen Delivery Room Air 10/21/24 13:29 10/21/24 13:40 Temperature Pulse Rate 74 Respiratory Rate Blood Pressure Pulse Oximetry 98 Oxygen Delivery Room Air Exam Const: General: comfortable and no acute distress Other: , female, nontoxic appearance HENMT: Face/Nose/Sinus: Normal nares present Mouth: Yes moist mucous membranes Eyes: General: appearance normal, both eyes and all related structures Sclera: sclerae normal Pupils: Equal, round and reactive pupils present EOM: EOMs intact bilaterally Resp: Effort & Inspection: normal respiratory effort Auscultation: clear to auscultation bilaterally Cardio: Rate: regular rate Rhythm: regular rhythm Other: S1-S2 present without murmur, rub, ectopy GI: Other: Abdomen soft, nondistended, nontender. Normoactive bowel sounds in all quadrants. Skin: General skin exam: normal color and no rashes or lesions noted Wounds: no wounds Neuro: Speech: normal speech Motor exam (neuro): 5/5 motor strength present throughout Sensory Exam: normal sensation Other: A&O x4 Extrem: General: normal to inspection Psych: Mental Status: mental status grossly normal Affect: normal affect Other: Good insight and judgment, very pleasant H&P: Results Labs Labs: Short CBC 10/21/24 Range/Units 11:45 WBC 5.3 (4.5-10.0) K/mm3 Hgb 14.3 (12.0-15.0) g/dL Hct 42.6 (37.0-47.0) % Plt Count 273 (150-375) k/mm3 [facility] 10/21/24 11:45 Sodium 140 Potassium 3.8 Chloride 105 Carbon Dioxide 26 BUN 24 H Creatinine 0.77 Glucose 115 H Calcium 9.6 Cardiac Enzymes 10/21/24 Range/Units 11:45 Troponin I 0.059 H* (0.000-0.034) ng/mL Liver Function 10/21/24 Range/Units 11:45 Total Bilirubin 0.4 (0.2-1.3) mg/dL AST 26 (14-36) U/L ALT 25 (6-35) U/L Alkaline Phosphatase 70 (38-126) U/L Albumin 4.3 (3.5-5.1) g/dL Assessment and Plan Assessment and plan (1) NSTEMI (non-ST elevated myocardial infarction): Code(s): I21.4 - Non-ST elevation (NSTEMI) myocardial infarction Status: Acute Assessment and Plan: - EKG, initial: Sinus rhythm, rate 79. - CXR: No acute cardiopulmonary pathology. - Troponin: 0.059 -> 0.057 -> 0.058 - ASA 324 -> 81 daily - SL nitro PRN - cardiology consulted, awaiting recs. Will make NPO midnight in case of need for procedure. - started on Lovenox 1 mg/kg BID - check lipid panel and A1C - no previous echo or cardiac cath on file - telemetry monitoring Plan Diet: Heart healthy, NPO midnight GI Prophylaxis: Not currently indicated DVT Prophylaxis: Lovenox SQ IV fluids: None Lines/Tubes: Peripheral IV Code Status: Full code Quality VTE Prophylaxis VTE prophylaxis: pharmacologic ordered Hospitalist MIPS Advance Care Plan I have confirmed that the patient's Advanced Care Plan is present, code status is documented, or surrogate decision maker is listed in patient medical record.: Yes Medication Reconciliation I have utilized all available resources to obtain, update and review the patie nts current medications (includes all prescriptions, OTC, herbals, cannabis, and nutritional supplements).: Yes
--- OUTSIDE RECORDS SUMMARY | 2024-10-21 14:21 | XMS_ITS | Encounter Summary ---
Author Organization [facility] Address [address] [facility] [place] [address] Care Team Providers Care Principal Electrical Engineer Name Role Phone Angelo Stewart MD Primary Care Provider [phone] Encounter Details Date Type Department Care Team (Late st Contact Info) Description 03/08/2018 Lab Requisition [facility] Care DermPath Lab [address] [facility] [place] [address] [place] [address] Social History Tobacco Use Types Packs/Day Years Used Date Smoking Tobacco: Never Assessed Comments Unknown Sex and Gender Information Value Date Recorded Sex Assigned at Not on file Legal Sex Female 6:21 PM C S S REPRESENTATIVE Gender Identity Not on file Sexual Orientation Not on file documented as of this encounter Plan of Treatment Not on file documented as of this encounter Procedures Procedure Name Priority Date/Time Associated Diagnosis Comments DERMATOPATHOLOGY Routine 03/07/2018 12:0 0 AM C S S REPRESENTATIVE documented in this encounter Results * DERMATOPATHOLOGY (03/07/2018 12:00 AM C S S REPRESENTATIVE) Case Report Dermatopathology Report Case: [id number] Authorizing Provider: Bethel Wheat MD Collected: 03/07/2018 12:00 AM Pathologist: Ninfa Caruso MD Received: 03/08/2018 12:21 PM Specimens: A) - Skin, right upper lat back B) - Skin, right mid back C) - Skin, right side abd 8 10:30 AM C S S REPRESENTATIVE DERMATOPATHOLOGY LABORATORY Final Diagnosis Specimen A. SKIN, right upper lat back: FIBROMA (D21.9) (see microscopic description) Specimen B. SKIN, right mid back: LENTIGINOUS MELANOCYTIC NEVUS, COMPOUND TYPE, IRRITATED (COMPOUND MELANOCYTIC NEVUS WITH ARCHITECTURAL DISORDER) (D22.5) Specimen C. SKIN, right side abd: LENTIGINOUS MELANOCYTIC NEVUS, COMPOUND TYPE, IRRITATED (COMPOUND MELANOCYTIC NEVUS WITH ARCHITECTURAL DISORDER) (D22.5) 8 10:30 AM [facility] DERMATOPATHOLOGY LABORATORY at [address] [facility] Clinical History A-C: R/O dys nevus. 8 10:30 AM [facility] DERMATOPATHOLOGY LABORATORY Gross Description Specimen A: Received is one formalin filled container labeled with the patient's name and designated right upper lat back. The specimen consists of a shave biopsy measuring [id number]. Jar 0. Specimen B: Received is one formalin filled container labeled with the patient's name and designated right mid back. The specimen consists of a shave biopsy measuring [id number]. Jar 0. Specimen C: Received is one formalin filled container labeled with the patient's name and designated right side abd. The specimen consists of a shave biopsy measuring [id number]. Jar 0. 8 10:30 AM [facility] DERMATOPATHOLOGY LABORATORY Microscopic Description Specimen A. SKIN, [...] or Compound Dysplastic Nevus) 8 10:30 AM [facility] DERMATOPATHOLOGY LABORATORY Disclaimer An external and internal positive and negative controls are appropriate for the histochemical, immunohistochemical and immunofluorescence stain(s) in this case (if any), except where stated explicitly. The performance characteristics of the stain(s) cited in this report were developed and its performance characteristic determined by the Dermatopathology Laboratory at [facility]. These tests need not be, and therefore are not, approved by the [place] Food and Drug Administration. The tests are used for clinical purposes. Billing Codes Specimen Charges Stain Charges 62672 32039 38628 1 1 1 44505 1 8 10:30 AM [facility] DERMATOPATHOLOGY LABORATORY Embedded Images 8 10:30 AM C S S REPRESENTATIVE DERMATOPATHOLOGY LABORATORY Pathology/Cytology TISSUE SPECIMEN FROM SKIN / Unknown 03/07/2018 03/08/2018 12:21 PM C S S REPRESENTATIVE Miscellaneous samples (specimen) TISSUE SPECIMEN FROM SKIN / Unknown 03/07/2018 03/08/2018 12:21 PM C S S REPRESENTATIVE Miscellaneous samples (specimen) TISSUE SPECIMEN FROM SKIN / Unknown 03/07/2018 03/08/2018 12:21 PM C S S REPRESENTATIVE Bethel Wheat MD LAB - PATHOLOGY/CYTOLOGY ORD ERABLES Final Result DERMATOPATHOLOGY LABORATORY [facility] - Department of Dermatology [address] [place] [address] 5th Floor Lab [address] [phone] documented in this encounter Visit Diagnoses Not on filedocumented in this encounter Care Teams Principal Electrical Engineer Relationship Specialty Start Date End Date Angelo Stewart MD [address] [place] [address] PCP - General 02/04/08 documented as of this encounter
--- OUTSIDE RECORDS SUMMARY | 2024-10-21 14:21 | XMS_ITS | Encounter Summary ---
Author Organization [facility] Address [address] [facility] [place] [address] Care Team Providers Care Electronics Engineering Technician Name Role Phone Angelo Stewart MD Primary Care Provider [phone] Encounter Details Date Type Department Care Team (Late st Contact Info) Description 09/23/2021 Lab Requisition 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 DermPath Lab Received: 09/23/2021 01:49 PM Pathologist: [...] specimen consists of a shave biopsy measuring [id number]. Jar 0. 2 3:43 PM CDT DERMATOPATHOLOGY [...] characteristic determined by the Dermatopathology Laboratory at [facility], directed by Dr. Jennifer Santana. These tests need not be, and therefore are not, approved by the [place] Food and Drug Administration. The tests are used for clinical purposes. Billing Codes Specimen Charges Stain Charges 21657 1 2 3:43 PM CDT DERMATOPATHOLOGY LABORATORY Embedded Images 2 3:43 PM CDT DERMATOPATHOLOGY LABORATORY Pathology/Cytolog y TISSUE SPECIMEN FROM SKIN / Unknown 09/22/2021 09/23/2021 1:49 PM CDT Bethel Wheat MD LAB - PATHOLOGY/CYTOLOGY ORD ERABLES Final Result DERMATOPATHOLOGY LABORATORY [facility] - Department of Dermatology [facility] [address] [place] [address], [address] [phone] documented in this encounter Visit Diagnoses Not on filedocumented in this encounter Care Teams Electronics Engineering Technician Relationship Specialty Start Date End Date Angelo Stewart MD [address] [place] [address] PCP - General 02/04/08 documented as of this encounter
--- OUTSIDE RECORDS SUMMARY | 2024-10-21 14:21 | XMS_ITS | Encounter Summary ---
Author Organization [employer] Address 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
--- OUTSIDE RECORDS SUMMARY | 2024-10-21 14:21 | XMS_ITS | Encounter Summary ---
Author Organization [employer] Address 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
--- OUTSIDE RECORDS SUMMARY | 2024-10-21 14:21 | XMS_ITS | Encounter Summary ---
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
--- OUTSIDE RECORDS SUMMARY | 2024-10-21 14:21 | XMS_ITS | Encounter Summary ---
Author Organization [employer] Address 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
--- OUTSIDE RECORDS SUMMARY | 2024-10-21 14:21 | XMS_ITS | Clinical Summary ---
Author Organization [facility] Address [address] [place] [address] Care Team Providers Care Corn Miller Name Role Phone Angelo Stewart MD Primary Care Provider [phone] Source Comments [facility],non-[facility] Affiliates and Associated Physician Practices is amultiple site organization consisting of ambulatory clinics and hospital sitesin [place], [place], [place] and [place]. This disclosure is being madepursuant to the Care Everywhere program and may not contain all information available regarding this patient. 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
--- OUTSIDE RECORDS SUMMARY | 2024-10-21 14:21 | XMS_ITS | Encounter Summary ---
Author Organization [facility] Address [address] [place] [address] Phone Care Team Providers Care House Fellow Name Role Phone Codie Mittal MD Unavailable [phone] Tristin Mosley MD Unavailable Ivory Chou MD Primary Care Provider Encounter Details Date Type Department Care Team (Late st Contact Info) Description 09/03/2024 Results Follow-Up [facility] Oncology [address] [place] [address] [place] Heights[place]leni martin MD [address] [place], [place] [phone] Screening Mammogram Bilateral W Miguel Social History [...] on file Legal 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 Gender Identity Not on file Sexual Orientation Not on file documented as of this encounter Plan of Treatment Not on file documented as of this encounter Visit Diagnoses Not on filedocumented in this encounter Care Teams House Fellow Relationship Specialty Start Date End Date Ivory Chou MD [address] [place] [address] PCP - General Internal Medicine 07/20/23 Codie Mittal MD [address] [place] [address] Referring Physician Gynecology 03/03/22 Tristin Mosley MD [address] [place], [place] [phone] Cardiovascular Disease 03/04/22 documented as of this encounter
--- OUTSIDE RECORDS SUMMARY | 2024-10-21 14:21 | XMS_ITS | Encounter Summary ---
Author Organization [employer] Address 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
--- OUTSIDE RECORDS SUMMARY | 2024-10-21 14:21 | XMS_ITS | Encounter Summary ---
Author Organization [employer] Address 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
--- OUTSIDE RECORDS SUMMARY | 2024-10-21 14:21 | XMS_ITS | Encounter Summary ---
Author Organization [employer] Address 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
--- OUTSIDE RECORDS SUMMARY | 2024-10-21 14:21 | XMS_ITS | Encounter Summary ---
Author Organization [facility] Address [address] [facility] [address] Care Team Providers Care Special Education Itinerant Teacher Name Role Phone Angelo Stewart MD Primary Care Provider [phone] Encounter Details Date Type Department Care Team (Late st Contact Info) Description 08/09/2021 Lab Requisition [facility] DermPath Lab [address] [place] [phone] [place] [address] Social History Tobacco Use Types Packs/Day Years Used Date Smoking Tobacco: Never Assessed Comments Unknown Sex and Gender Information Value Date Recorded Sex Assigned at Not on file 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 Gender Identity Not on file Sexual Orientation Not on file documented as of this encounter Plan of Treatment Not on file documented as of this encounter Procedures Procedure Name Priority Date/Time Associated Diagnosis Comments DERMATOPATHOLOGY Routine 08/06/2021 3:33 AM CDT documented in this encounter Results * DERMATOPATHOLOGY (08/06/2021 3:33 AM CDT) Case Report Dermatopathology Report Case: [id number] Authorizing Provider: Bethel Wheat MD Collected: 08/06/2021 03:33 AM Ordering Location: [facility] DermPath Lab Received: 08/09/2021 01:43 PM Pathologist: [...] determined by the Dermatopathology Laboratory at [facility], directed by Dr. Jennifer Santana. These tests need not be, and therefore are not, approved by the [place] Food and Drug Administration. The tests are used for clinical purposes. Billing Codes Specimen Charges Stain Charges 98115 1 29840 1 2 5:41 PM CDT DERMATOPATHOLOGY LABORATORY Embedded Images 2 5:41 PM CDT DERMATOPATHOLOGY LABORATORY Pathology/Cytolo gy TISSUE SPECIMEN FROM SKIN / Unknown 08/06/2021 3:33 AM CDT 08/09/2021 1:43 PM CDT us Bethel Wheat MD LAB - PATHOLOGY/CYTOLOGY ORD ERABLES Final Result DERMATOPATHOLOGY LABORATORY [facility] - Department of Dermatology [address], 3[address] Floor [address] [phone] documented in this encounter Visit Diagnoses Not on filedocumented in this encounter Care Teams Special Education Itinerant Teacher Relationship Specialty Start Date End Date Angelo Stewart MD [address] [place] [address] PCP - General 02/04/08 documented as of this encounter
--- OUTSIDE RECORDS SUMMARY | 2024-10-21 14:21 | XMS_ITS | Encounter Summary ---
Author Organization [facility] Healthcare Address [address] [place] [address] Care Team Providers Care Fermenter Wine Name Role Phone Codie Mittal MD Unavailable [phone] Tristin Mosley MD Unavailable Ivory Chou MD Primary Care Provider Reason for Referral * Consultation (Routine) - Closed Specialty Diagnoses / Procedures Referred By Xavier fisher Referred To Contact Otolaryngology Diagnoses Thyroglossal duct cyst Ivory Chou MD [address] [facility] [address] [place] [address] Phone: tel: fax: Billy Elise MD [address] [facility] [address], [place] [address] Phone: tel: fax: Referral ID Status Reason Start Date Expiration Date V isits Requested Visits Authorized [id number] Closed Specialty Services Required 09/04/2024 10/04/2025 1 1 Question Answer Please select the performing region: [facility] Medical Group [[id number]] Please select the performing department: [facility] [id number] [[id number]] To provider: BILLY ELISE [[id number]] # of visits: 1 Encounter Details Date Type Department Care Team (Late st Contact Info) Description 09/04/2024 Results Follow-Up [facility] Medical Group Primary Care at [facility] [place] [facility] [address] [facility] [address], [place] [address] Ivory Chou MD [address] [phone] [place] Thyroid Social History Tobacco Use Types [...] on file Legal 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
--- OUTSIDE RECORDS SUMMARY | 2024-10-21 14:21 | XMS_ITS | Clinical Summary ---
Author Organization [employer] [facility] Address [address] [facility] [address] [place]: Epic Prelude ADT [place] [address] Care Team Providers Care Goodwill Ambassador Name Role Phone Unavailable Primary Care Provider Unavailabl e Medications nitrofurantoin (MACROBID) 100 mg capsule Take 1 Capsule (100 mg) by mouth every 12 hours. 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
--- OUTSIDE RECORDS SUMMARY | 2024-10-21 14:21 | XMS_ITS | Clinical Summary ---
Author Organization [facility] Care Team Providers Care Outsewer Name Role Phone Unavailable Primary Care Provider Unavailabl e Social History Tobacco Use Types Packs/Day Years Used Date Smoking Tobacco: Never Assessed Comments Unknown Sex and Gender Information Value Date Recorded Sex Assigned at Not on file Legal Sex Female 8:55 AM APPLICATIONS PROCESSOR Gender Identity Not on file Sexual Orientation [...]
--- OUTSIDE RECORDS SUMMARY | 2024-10-21 14:21 | XMS_ITS | Encounter Summary ---
Author Organization [employer] Address 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
--- OUTSIDE RECORDS SUMMARY | 2024-10-21 14:21 | XMS_ITS | Encounter Summary ---
Author Organization [employer] Address 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
--- OUTSIDE RECORDS SUMMARY | 2024-10-21 14:21 | XMS_ITS | Referral Summary ---
Author Organization [facility] Address [facility] [place] [address] Care Team Providers Care Loader Helper Sorting Yard Name Role Phone Codie Mittal MD Unavailable [phone] Tristin Mosley MD Unavailable Ivory Chou MD Primary Care Provider Encounters Date Type Department Care Team Description 10/21/2024 Nurse Triage [facility] Medical Group Primary Care at [facility] [address], [place] [address] Ivory Chou MD 10/03/2024 Orders Only [facility] Medical Group [facility]ists - [facility] [address] [place] [address] Billy Elise MD Thyroglossal duct cyst (Primary Dx) 10/03/2024 Results Follow-Up [facility] - [facility] [address] [address] Soft Tissue Neck with Contrast 10/01/2024 2:03 PM CDT - 10/01/2024 11:59 PM CDT Hospital Encounter [facility] - Imaging [address] [place] [address] Billy Elise MD Thyroglossal duct cyst Discharge Disposition: Discharge to home or self care 09/23/2024 2:00 PM CDT Office Visit [facility] - [facility] [address] [place] [address] Billy Elise MD Gastroesophageal reflux disease with esophagitis without hemorrhage (Primary Dx); Thyroglossal duct cyst 09/04/2024 Results Follow-Up [facility] Primary Care at [address], [place] [address] Ivory Chou MD US Thyroid 09/03/2024 Results Follow-Up [facility] Oncology [address] [place] [phone] Marleni Agarwal MD Screening Mammogram Bilateral W Miguel 09/02/2024 1:08 PM CDT - 09/02/2024 11:59 PM CDT Hospital Encounter [facility] Imaging [address] [place] [address] Thyromegaly Discharge Disposition: Discharge to home or self care 09/02/2024 10:03 AM CDT - 09/02/2024 11:59 PM CDT Hospital Encounter [facility] [address] [place] [address] Breast cancer screening by mammogram; Encounter for screening mammogram for breast cancer Discharge Disposition: Discharge to home or self care 08/05/2024 9:[address] [facility] [address] [place] [address] [place] [address] Annual physical exam 08/05/2024 1:00 PM CDT Office Visit [facility] Medical [facility] Primary Care at [address] [place] [address] Ivory Chou MD Encounter for preventive [...] 250 mg by mouth daily Active rizatriptan NUT ROASTER (MAXALT-NUT ROASTER) 10 mg disintegrating tabletIndications: Migraine Take 1 [...] 1 tablet (112 mcg total) by mouth fuse spooler before breakfast 90 tablet 3 5 08/06/19 [...] 02/2025 - Pap: UTD 04/2024, repeat per Marketing Designer Immunizations - Influenza: UTD 01/2024, repeat annually - Td/Tdap: UTD 07/2024 - PCV20: Discuss at 66 - Shingles: UTD x 2 [id number] - COVID: UTD 01/2024 Assessment & Plan [...] history of polyps. C-scope scheduled 09/2023 at [facility]. 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 Gender Identity Not on file Sexual Orientation Not on file Last Filed Vital Signs Vital Sign Reading Time Taken Comments Blood Pressure 154/90 08/05/2024 1:02 PM CDT Pulse 77 08/05/2024 1:02 PM CDT Temperature 36.6 C (97.8 F) 03/06/2024 1:55 PM LEATHER BELT MAKER Respiratory Rate 17 03/06/2024 1:55 PM LEATHER BELT MAKER Oxygen Saturation 98% 08/05/2024 1:02 PM CDT Inhaled Oxygen Concentration - - Weight 81.6 kg (180 lb) 09/02/2024 10:26 AM CDT Height 165.1 cm (5' 5) 09/02/2024 10:26 AM CDT Body Mass Index 29.95 09/02/2024 10:26 AM CDT Plan of Treatment Not on file Medical Devices Implanted Type Area Case Management Director Device Identifier Shelf Expiration Date Model / Serial / Lot [employer] Guide 15ga Coaxial Needle Ultrasound Breast Boipsy Coil 1 Titanium Hydromark 4009-06-08-T1 - [id number] Implanted:Qty: 1 on 10/27/[address] [facility] [employer] [id number] -T1 / / [id number] Procedures Procedure Name Priority Date/Time Associated Diagnosis [...] are normal. The limited view of the [place] is unremarkable. The visualized portions [...] are normal. The limited view of the [place] is unremarkable. The visualized portions [...] by: Jay Paz M.D. Ivory Chou MD [facility] US PROCEDURES Cyndy l Result * Screening [...] distortion in either breast. Marleni Agarwal MD [facility] MAMMO PROCEDURES Final Result * eGFR (08/05/2024 [...] CDT 08/05/2024 12:47 PM CDT Connie Manrique CEMENT MASON MAINTENANCE LAB BLOOD ORDERABLES Final Re sult Performing Organization Address [facility] Co de Phone Number [facility] [address] [facility] [place], [place] [id number] * Thyroid Function Juana Diaz (08/05/2024 12:47 PM CDT) TSH 3.38 0.30 - 4.20 mcIUnit/mL Blood 08/05/2024 12:4 7 PM CDT 08/05/2024 12:47 PM CDT Connie Manrique CEMENT MASON MAINTENANCE LAB BLOOD ORDERABLES Final Re sult Performing Organization Address [facility] Co de Phone Number [facility] [address] [facility] [place] [address] * Vitamin D 25 hydroxy (08/05/2024 12:47 PM CDT) Vitamin D 25-OH 41 30 - 80 ng/mL Blood 08/05/2024 12:4 7 PM CDT 08/05/2024 12:47 PM CDT Connie Manrique CEMENT MASON MAINTENANCE LAB BLOOD ORDERABLES Final Re sult Performing Organization Address [facility] Co de Phone Number [facility] [address] Department [place], [place] [phone] * (ABNORMAL) Lipid panel (08/05/2024 12:47 PM [...] revised on 2017. Triglycerides 195(H) <=149 mg/dL [facility] Comment: Interpretive Data Ages < or [...] revised on 2017. HDL 57 >=40 mg/dL [facility] Comment: Interpretive Data Ages < or [...] on 2017. LDL, calculated 165(H) <=129 mg/dL [facility] Comment: Interpretive Data Ages < or [...] revised on 2023. Non-HDL Cholesterol 201 mg/dL [facility] Comment: Interpretive Data Ages < or [...] last revised on 2017. Chol/HDL ratio 5 [facility] Blood 08/05/2024 12:4 7 PM CDT 08/05/2024 12:47 PM CDT us Connie Manrique CEMENT MASON MAINTENANCE LAB BLOOD ORDERABLES Final Re sult [facility] [address] Department [place] [address] * Comprehensive metabolic panel (08/05/2024 12:47 PM CDT) Sodium 139 135 - 145 mmol/L Potassium, pl 4.7 3.3 - 4.9 mmol/L [facility] Chloride 101 97 - 110 mmol/L [facility] CO2 24 22 - 32 mmol/L [facility] Anion gap 14 2 - 15 mmol/L [facility] BUN 18 6 - 25 mg/dL [facility] Creatinine 0.61 0.60 - 1.10 mg/dL [facility] Glucose 80 70 - 199 mg/dL [facility] Comment: Interpretive Data Fasting glucose >/= [...] 2022. Calcium 9.9 8.5 - 10.3 mg/dL [facility] Bilirubin, total 0.3 0.1 - 1.2 mg/dL [facility] Protein, pl 6.9 6.5 - 8.5 g/dL [facility] Albumin 4.4 3.5 - 5.0 g/dL [facility] Alk phos 98 40 - 130 Units/L [facility] ALT 22 7 - 45 Units/L [facility] AST 22 10 - 45 Units/L [facility] Comment:Slightly Hemolyzed S pecimen Blood 08/05/2024 12:4 7 PM CDT 08/05/2024 12:47 PM CDT us Connie Manrique CEMENT MASON MAINTENANCE LAB BLOOD ORDERABLES Final Re sult [facility] [address] Department [place] [address] * Differential, auto (08/05/2024 12:46 PM CDT) Neutrophil abs 2.20 1.50 - 6.50 K/cumm Imm gran abs 0.01 0.00 - 0.10 K/cumm [facility] Lymphocyte abs 1.55 0.80 - 3.30 K/cumm [facility] Monocyte abs 0.28 0.20 - 0.80 K/cumm [facility] Eosinophil abs 0.15 0.00 - 0.50 K/cumm [facility] Basophil abs 0.02 0.00 - 0.10 K/cumm [facility] Neutrophil pct 52.2 % [facility] Comment: Interpretive Data Percent cell count reference ranges are not reported, since discordance with absolute values may lead to misinterpretation of CBC data. Current Interpretive Data was last revised on 2017. Imm gran pct 0.2 % [facility] Comment: Interpretive Data Percent cell count reference ranges are not reported, since discordance with absolute values may lead to misinterpretation of CBC data. Current Interpretive Data was last revised on 2017. Lymphocyte pct 36.8 % [facility] Comment: Interpretive Data Percent cell count reference ranges are not reported, since discordance with absolute values may lead to misinterpretation of CBC data. Current Interpretive Data was last revised on 2017. Monocyte pct 6.7 % [facility] Comment: Interpretive Data Percent cell count reference ranges are not reported, since discordance with absolute values may lead to misinterpretation of CBC data. Current Interpretive Data was last revised on 2017. Eosinophil pct 3.6 % [facility] Comment: Interpretive Data Percent cell count reference ranges are not reported, since discordance with absolute values may lead to misinterpretation of CBC data. Current Interpretive Data was last revised on 2017. Basophil pct 0.5 % [facility] Comment: Interpretive Data Percent cell count reference ranges are not reported, since discordance with absolute values may lead to misinterpretation of CBC data. Current Interpretive Data was last revised on 2017. Blood 08/05/2024 12:4 6 PM CDT 08/05/2024 12:46 PM CDT us Connie Manrique CEMENT MASON MAINTENANCE LAB BLOOD ORDERABLES Final Re sult [facility] [address] [place] [address] * CBC with auto differential (08/05/2024 12:46 PM CDT) [facility] WBC 4.21 3.80 - 9.90 K/cumm Hgb 14.5 11.9 - 15.5 g/dL [facility] Hct 43.6 35.6 - 45.5 % [facility] Plt 311 150 - 400 K/cumm [facility] MPV 10.6 9.1 - 12.3 fL [facility] RBC 4.79 3.90 - 5.20 M/cumm [facility] MCV 91.0 81.3 - 96.4 fL [facility] MCH 30.3 27.1 - 33.3 pg [facility] MCHC 33.3 32.3 - 35.7 g/dL [facility] RDW CV 12.3 11.1 - 14.9 % [facility] RDW SD 41.1 35.7 - 48.1 fL [facility] NRBC abs 0.00 0.00 - 0.01 K/cumm [facility] Blood 08/05/2024 12:4 6 PM CDT 08/05/2024 12:46 PM CDT Connie Manrique CEMENT MASON MAINTENANCE LAB BLOOD ORDERABLES Final Re sult [facility] [address] [place] [address] * Hemoglobin A1c (08/05/2024 12:46 PM CDT) [facility] Hgb A1C 5.3 4.0 - 5.6 % Estimated Average Glucose 105 mg/dL [facility] Comment: The ADA recommends reporting an estimated Average Glucose (eAG) with all Hemoglobin A1c results using the equation derived from a study of 507 normal and diabetic adults. Minority populations were underrepresented and children were not included. (Diabetes Care 31:6162-7253, 2008). The eAG is not equivalent to a fasting glucose. Blood 08/05/2024 12:4 6 PM CDT 08/05/2024 12:46 PM CDT Connie Manrique CEMENT MASON MAINTENANCE LAB BLOOD ORDERABLES Final Re sult [facility] [address] Department [place] [address] * COLONOSCOPY (09/11/2023) Scribed Colonoscopy Normal Historical Provider MD HEALTH MAINTENANCE Final Result * PAP SMEAR (05/04/2023) Historical Provider HEALTH MAINTENANCE Final Result from Last 3 Months or Most Recently Relevant to Health [place] [address] [facility]ITALNautilus NeurosciencesTHE [facility] Pa-Go MobileHELEN DEVOS [facility] [address] [facility]ITALValley Automotive Investment Group BAP[facility] DOCTORS HOSPITALVirtual Call CenterCOPIAH COUNTY MEDICAL CENTER Care Teams Loader Helper Sorting Yard Relationship Specialty Start Date End Date Ivory Chou MD [address] [facility] [address] [place] [address] PCP - General Internal Medicine 07/20/23 Codie Mittal MD [address] [place], [place] [id number] Referring Physician Gynecology 03/03/22 Tristin Mosley MD [address] [place], [place] [id number] Cardiovascular Disease 03/04/22
--- OUTSIDE RECORDS SUMMARY | 2024-10-21 14:21 | XMS_ITS | Encounter Summary ---
Author Organization [employer] Address 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
--- OUTSIDE RECORDS SUMMARY | 2024-10-21 14:21 | XMS_ITS | Encounter Summary ---
Author Organization [employer] Address 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
--- OUTSIDE RECORDS SUMMARY | 2024-10-21 14:21 | XMS_ITS | Encounter Summary ---
Author Organization [employer] Address 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
--- OUTSIDE RECORDS SUMMARY | 2024-10-21 14:21 | XMS_ITS | Encounter Summary ---
Author Organization [facility] Healthcare Address [address] [place] [address] Care Team Providers Care Ordained Minister Name Role Phone Codie Mittal MD Unavailable Tristin Mosley MD Unavailable Ivory Chou MD Primary Care Provider Reason for Visit * Reason Onset Date Comments Shortness of Breath 10/21/2024 Fatigue 10/21/2024 Hypotension 10/21/2024 Encounter Details Date Type Department Care Team (Late st Contact Info) Description 10/21/2024 Nurse Triage [facility] Medical Group Primary Care at 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 Patient would like to speak with chip crusher operator for further assessment. Does message need to be routed? Yes-Action Needed documented in this encounter Plan of Treatment Not on file documented as of this encounter Visit Diagnoses Not on filedocumented in this encounter Care Teams Ordained Minister Relationship Specialty Start Date End Date Ivory Chou MD [address] [facility] [address] [place] [address] PCP - General Internal Medicine 07/20/23 Codie Mittal MD [address] [place] [address] Referring Physician Gynecology 03/03/22 Tristin Mosley MD [address] [place] [address] Cardiovascular Disease 03/04/22 documented as of this encounter
--- OUTSIDE RECORDS SUMMARY | 2024-10-21 14:21 | XMS_ITS | Encounter Summary ---
Author Organization [employer] Address 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
--- OUTSIDE RECORDS SUMMARY | 2024-10-21 14:21 | XMS_ITS | Clinical Summary ---
Author Organization [facility] Address [address] [place] [address] Care Team Providers Care Machinist General Name Role Phone Codie Mittal MD Unavailable [phone] Tristin Mosley MD Unavailable Ivory Chou MD Primary Care Provider Allergies Active Allergy Reactions Criticality Noted Date Comments Cat Dander Sneezing High 05/04/2022 Medications MAGNESIUM CITRATE ORAL Take 250 mg by mouth daily Active rizatriptan ELECTRIC TRUCK CRANE OPERATOR (MAXALT-ELECTRIC TRUCK CRANE OPERATOR) 10 mg disintegrating tabletIndications: Migraine Take 1 [...] 1 tablet (112 mcg total) by mouth water vessel captain before breakfast 90 tablet 3 5 08/06/19 [...] 02/2025 - Pap: UTD 04/2024, repeat per Data Entry Manager Immunizations - Influenza: UTD 01/2024, repeat annually - Td/Tdap: UTD 07/2024 - PCV20: Discuss at 66 - Shingles: UTD x 2 [id number] - COVID: UTD 01/2024 Assessment & Plan [...] history of polyps. C-scope scheduled 09/2023 at [facility]. - Send records w/ updated records Migraine [...] Department Care Team Description 10/21/2024 Nurse Triage [facility] Primary Care at [facility] [address] [facility] [address] [address] Ivory Chou MD 10/03/2024 Orders Only [facility] Medical [facility] Specialists - [facility] [address] [place] [address] [place] [phone] Billy Elise MD Thyroglossal duct cyst (Primary Dx) 10/03/2024 Results Follow-Up [facility] - [facility] [address] [place] [address] [place] [phone] Soft Tissue Neck with Contrast 10/01/2024 2:03 PM CDT - 10/01/2024 11:59 PM CDT Hospital Encounter [facility] - Imaging [address] [place] [phone] Billy Elise MD Thyroglossal duct cyst Discharge Disposition: Discharge to home or self care 09/23/2024 2:00 PM CDT Office Visit [facility] Medical [facility] ENT Specialists - [address] [place] [phone] Billy Elise MD Gastroesophageal reflux disease with esophagitis without hemorrhage (Primary Dx); Thyroglossal duct cyst 09/04/2024 Results Follow-Up [facility] Primary Care at [facility] [address] [address] [place] [address] Ivory Chou MD US Thyroid 09/03/2024 Results Follow-Up [facility] [address] [place] [phone] Marleni Agarwal MD Screening Mammogram Bilateral W Miguel 09/02/2024 1:08 PM CDT - 09/02/2024 11:59 PM CDT Hospital Encounter [facility] - Imaging [address] [place] [address] Thyromegaly Discharge Disposition: Discharge to home or self care 09/02/2024 10:03 AM CDT - 09/02/2024 11:59 PM CDT Hospital Encounter [facility] - Imaging [address] [facility] [address] [place] [address] Breast cancer screening by mammogram; Encounter for screening mammogram for breast cancer Discharge Disposition: Discharge to home or self care 08/05/2024 1:00 PM CDT Office Visit [facility] Primary Care at [facility] [address] [facility] [address] [place] [address] Ivory Chou MD Encounter for [...] unspecified type 08/05/2024 9:10 AM CDT Lab [facility] [address] [place] [address] Annual physical exam from Last [...] on file Legal Sex Female 1:55 AM CREATIVE 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 Gender Identity Not on file Sexual Orientation [...] 36.6 C (97.8 F) 03/06/2024 1:55 PM CREATIVE WRITER Respiratory Rate 17 03/06/2024 1:55 PM CREATIVE WRITER Oxygen Saturation 98% 08/05/2024 1:02 PM CDT [...] this topic Medical Devices Implanted Type Area Pack Operator Device Identifier Shelf Expiration Date Model / Serial / Lot [email or web address] Guide 15ga Coaxial Needle Ultrasound Breast Boipsy Coil 1 Titanium Hydromark 4009-06-08-T1 - [id number] Implanted:Qty: 1 on 10/27/2022 at [facility] [email or web address] [id number] 4009-06-08 -T1 / / [id number] Procedures Procedure Name Priority Date/Time Associated Diagnosis [...] are normal. The limited view of the [place] is unremarkable. The visualized portions [...] are normal. The limited view of the [place] is unremarkable. The visualized portions [...] Jay Paz M.D. us Ivory Chou MD [facility] [place] US PROCEDURES Cyndy l Result * Screening Mammogram Bilateral W Mgiuel (09/02/2024 10:34 AM CDT) Anatomical Region Laterality [...] in either breast. us Marleni Agarwal MD [facility] [place] MAMMO PROCEDURES Final Result [...] CDT 08/05/2024 12:47 PM CDT Connie Manrique DESKTOP ENGINEER LAB BLOOD ORDERABLES Final Re sult Performing Organization Address [facility] Co de Phone Number [facility] [address] [facility] [employer] [place] [address] * Thyroid Function [place] (08/05/2024 12:47 PM CDT) Pathologist [facility] TSH 3.38 0.30 - 4.20 mcIUnit/mL Blood 08/05/2024 12:4 7 PM CDT 08/05/2024 12:47 PM CDT Connie Manrique DESKTOP ENGINEER LAB BLOOD ORDERABLES Final Re sult Performing Organization Address [facility] de Phone Number [facility] [address] [facility] [employer] [place] [address] * Vitamin D 25 hydroxy (08/05/2024 12:47 PM CDT) Pathologist [facility] Vitamin D 25-OH 41 30 - 80 ng/mL Blood 08/05/2024 12:4 7 PM CDT 08/05/2024 12:47 PM CDT Connie Manrique DESKTOP ENGINEER LAB BLOOD ORDERABLES Final Re sult Performing Organization Address [facility] de Phone Number [facility] [address] Department [employer] [place], [place] [phone] * (ABNORMAL) Lipid panel (08/05/2024 12:47 PM [...] revised on 2017. Triglycerides 195(H) <=149 mg/dL [facility] Comment: Interpretive Data Ages < or [...] revised on 2017. HDL 57 >=40 mg/dL [facility] Comment: Interpretive Data Ages < or [...] on 2017. LDL, calculated 165(H) <=129 mg/dL [facility] Comment: Interpretive Data Ages < or [...] revised on 2023. Non-HDL Cholesterol 201 mg/dL [facility] Comment: Interpretive Data Ages < or [...] last revised on 2017. Chol/HDL ratio 5 [facility] Blood 08/05/2024 12:4 7 PM CDT 08/05/2024 12:47 PM CDT Connie Manrique DESKTOP ENGINEER LAB BLOOD ORDERABLES Final Re sult [facility] [address] Department [place] [address] * Comprehensive metabolic panel (08/05/2024 12:47 PM CDT) Sodium 139 135 - 145 mmol/L Potassium, pl 4.7 3.3 - 4.9 mmol/L [facility] Chloride 101 97 - 110 mmol/L [facility] CO2 24 22 - 32 mmol/L [facility] Anion gap 14 2 - 15 mmol/L [facility] BUN 18 6 - 25 mg/dL [facility] Creatinine 0.61 0.60 - 1.10 mg/dL [facility] Glucose 80 70 - 199 mg/dL [facility] Comment: Interpretive Data Fasting glucose >/= [...] 2022. Calcium 9.9 8.5 - 10.3 mg/dL [facility] Bilirubin, total 0.3 0.1 - 1.2 mg/dL [facility] Protein, pl 6.9 6.5 - 8.5 g/dL [facility] Albumin 4.4 3.5 - 5.0 g/dL [facility] Alk phos 98 40 - 130 Units/L [facility] ALT 22 7 - 45 Units/L [facility] AST 22 10 - 45 Units/L [facility] Comment:Slightly Hemolyzed S pecimen Blood 08/05/2024 12:4 7 PM CDT 08/05/2024 12:47 PM CDT Connie Manrique DESKTOP ENGINEER LAB BLOOD ORDERABLES Final Re sult [facility] [address] Department [place] [address] * Differential, auto (08/05/2024 12:46 PM CDT) Neutrophil abs 2.20 1.50 - 6.50 K/cumm Imm gran abs 0.01 0.00 - 0.10 K/cumm [facility] Lymphocyte abs 1.55 0.80 - 3.30 K/cumm [facility] Monocyte abs 0.28 0.20 - 0.80 K/cumm [facility] Eosinophil abs 0.15 0.00 - 0.50 K/cumm [facility] Basophil abs 0.02 0.00 - 0.10 K/cumm [facility] Neutrophil pct 52.2 % [facility] Comment: Interpretive Data Percent cell count reference ranges are not reported, since discordance with absolute values may lead to misinterpretation of CBC data. Current Interpretive Data was last revised on 2017. Imm gran pct 0.2 % [facility] Comment: Interpretive Data Percent cell count reference ranges are not reported, since discordance with absolute values may lead to misinterpretation of CBC data. Current Interpretive Data was last revised on 2017. Lymphocyte pct 36.8 % [facility] Comment: Interpretive Data Percent cell count reference ranges are not reported, since discordance with absolute values may lead to misinterpretation of CBC data. Current Interpretive Data was last revised on 2017. Monocyte pct 6.7 % [facility] Comment: Interpretive Data Percent cell count reference ranges are not reported, since discordance with absolute values may lead to misinterpretation of CBC data. Current Interpretive Data was last revised on 2017. Eosinophil pct 3.6 % [facility] Comment: Interpretive Data Percent cell count reference ranges are not reported, since discordance with absolute values may lead to misinterpretation of CBC data. Current Interpretive Data was last revised on 2017. Basophil pct 0.5 % [facility] Comment: Interpretive Data Percent cell count reference ranges are not reported, since discordance with absolute values may lead to misinterpretation of CBC data. Current Interpretive Data was last revised on 2017. Blood 08/05/2024 12:4 6 PM CDT 08/05/2024 12:46 PM CDT us Connie Manrique DESKTOP ENGINEER LAB BLOOD ORDERABLES Final Re sult [facility] [address] Department [place] [address] * CBC with auto differential (08/05/2024 12:46 PM CDT) WBC 4.21 3.80 - 9.90 K/cumm Hgb 14.5 11.9 - 15.5 g/dL [facility] Hct 43.6 35.6 - 45.5 % [facility] Plt 311 150 - 400 K/cumm [facility] MPV 10.6 9.1 - 12.3 fL [facility] RBC 4.79 3.90 - 5.20 M/cumm [facility] MCV 91.0 81.3 - 96.4 fL [facility] MCH 30.3 27.1 - 33.3 pg [facility] MCHC 33.3 32.3 - 35.7 g/dL [facility] RDW CV 12.3 11.1 - 14.9 % [facility] RDW SD 41.1 35.7 - 48.1 fL [facility] NRBC abs 0.00 0.00 - 0.01 K/cumm [facility] Blood 08/05/2024 12:4 6 PM CDT 08/05/2024 12:46 PM CDT us Connie Manrique NP LAB BLOOD ORDERABLES Final Re sult Performing Organization Address [facility] de Phone Number [facility] [address] [employer] [place], [place] [phone] * Hemoglobin A1c (08/05/2024 12:46 PM CDT) Pathologist [facility] Hgb A1C 5.3 4.0 - 5.6 % Estimated Average Glucose 105 mg/dL [facility] Comment: The ADA recommends reporting an estimated Average Glucose (eAG) with all Hemoglobin A1c results using the equation derived from a study of 507 normal and diabetic adults. Minority populations were underrepresented and children were not included. (Diabetes Care 31:4948-0566, 2008). The eAG is not equivalent to a fasting glucose. Blood 08/05/2024 12:4 6 PM CDT 08/05/2024 12:46 PM CDT us Connie Manrique NP LAB BLOOD ORDERABLES Final Re sult Performing Organization Address City/[facility]/ZIP Co de Phone Number [facility] [address] [facility] [employer] [place], [place] [phone] * COLONOSCOPY (09/11/2023) Scribed Colonoscopy Normal Historical Provider HEALTH MAINTENANCE Final Result * PAP SMEAR (05/04/2023) Historical Provider HEALTH MAINTENANCE Final Result from Last 3 Months or Most Recently Relevant to Health Maintenance Insurance [facility] Care Teams Machinist General Relationship Specialty Start Date End Date Ivory Chou MD [address] [address] [place] [address] PCP - General Internal Medicine 07/20/23 Codie Mittal MD [address] [place], [place] [id number] Referring Physician Gynecology 03/03/22 Tristin Mosley MD [address] [place], [place] [id number] Cardiovascular Disease 03/04/22
--- OUTSIDE RECORDS SUMMARY | 2024-10-21 14:21 | XMS_ITS | Encounter Summary ---
Author Organization [facility] Address 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
[2024-10-21] MEDS: ENOXAPARIN 100 MG/ML SYRINGE 83 MG SUB-Q (14:35)
[2024-10-21 15:40] LABS: Troponin I 0.057 ng/mL (0.000-0.034)
--- NOTE | 2024-10-21 15:44 | ADMGEN ---
This patient, Addis Crockett, was admitted to IMU Room 202-. Patient/family oriented to hospital policies and general routines including ID bracelet, bed and alarms, visiting hours, pain management, procedures, bathroom and other care routines, personal items, smoking policy, room service/diet, and visiting hours. Information on how to activate the Rapid Response Team has been discussed. Patient/Family are encouraged to report perceived risks to care and to ask questions if they do not understand what they are told or what they should do.
[2024-10-21 18:30] LABS: Troponin I 0.058 ng/mL (0.000-0.034)
[2024-10-21] MEDS: IBUPROFEN 400 MG TABLET 800 MG PO (23:51)
[2024-10-21] MEDS: MELATONIN 5 MG TABLET PO (23:52)
[2024-10-22] VITALS (28 sets, daily range): BP systolic 101–168; BP diastolic 50–82; PULSE 52–80; RESP 12–20; TEMP 36.5–36.7; O2SAT 97–100
[2024-10-22] MEDS: ENOXAPARIN 100 MG/ML SYRINGE 83 MG SUB-Q (03:52)
[2024-10-22 04:54] LABS: Hematocrit 37.8 % (37.0-47.0); Hemoglobin 12.7 g/dL (12.0-15.0); Immature Granulocyte Percent A 0.2 % (0-0.5); Lymphocytes Absolute Auto 1.73 K/mm3 (0.9-3.2); Mean Corpuscular HGB Conc 33.6 g/dl (32-36); Mean Corpuscular Hemoglobin 30.2 pg (26-34); Mean Corpuscular Volume 89.8 fl (80-100); Nucleated Red Blood Cells Absolute Auto 0.000 K/mm3 (0.0-0.012); Nucleated Red Blood Cells Perc 0.0 % (0.0-0.2); Platelet Count Result 234 k/mm3 (150-375); Red Blood Count 4.21 M/mm3 (4.2-5.4); White Blood Count 4.4 K/mm3 (4.5-10.0)
[2024-10-22 05:15] LABS: Alanine Aminotransferase 19 U/L (6-35); Albumin Level 3.6 g/dL (3.5-5.1); Alkaline Phosphatase 57 U/L (38-126); Anion Gap 5 mmol/L (4-12); Aspartate Amino Transferase 22 U/L (14-36); Bilirubin,Total 0.4 mg/dL (0.2-1.3); Blood Urea Nitrogen 16 mg/dL (7-17); Calcium 8.8 mg/dL (8.4-10.2); Carbon Dioxide 26 mmol/L (22-30); Chloride 107 mmol/L (98-107); Cholesterol 143 mg/dL (0-200); Estimated CRCL calculation 82 ml/min; Estimated Glomerular Filt Rate > 60; Glucose 90 mg/dL (65-110); HDL Direct 38 mg/dL; Potassium 3.8 mmol/L (3.4-5.0); Sodium 138 mmol/L (137-145); Total Protein 5.9 g/dL (6.3-8.2); Triglycerides 157 mg/dL (<150)
[2024-10-22 05:23] LABS: Hemoglobin A1C 5.2 % (<5.7)
[2024-10-22] MEDS: LEVOTHYROXINE SODIUM 112 MCG TABLET PO (05:32)
[2024-10-22] MEDS: ASPIRIN 81 MG ENTERIC TABLET PO (09:52)
[2024-10-22] MEDS: ASCORBIC ACID 500 MG TABLET 1000 MG PO (09:52)
[2024-10-22] MEDS: ATORVASTATIN 40 MG TABLET PO (09:52)
[2024-10-22] MEDS: LORATADINE 10 MG TABLET PO (09:52)
[2024-10-22] MEDS: OMEGA 3 POLYUNSAT FATTY ACIDS 1 GM CAP PO (09:52)
[2024-10-22] MEDS: THERAPEUTIC MULTIVITAMINS/MINERALS TAB (*BKC) 1 TABLET PO (09:52)
[2024-10-22] MEDS: PANTOPRAZOLE 40 MG TABLET PO (09:53)
--- NOTE | 2024-10-22 11:49 | PM.CNCAR ---
Assessment and Plan Assessment and plan (1) NSTEMI (non-ST elevated myocardial infarction): Code(s): I21.4 - Non-ST elevation (NSTEMI) myocardial infarction Status: Acute (2) Chest pain: Code(s): R07.9 - Chest pain, unspecified Status: Acute Plan 1. NSTEMI 2. Hypertension 3. Hyperlipidemia 4. Family history of early CAD 5. Former smoker -Ms. Wang came in with NSTEMI and typical chest pain. Although the troponin elevation is mild and shows a flat profile the story is very convincing of ACS. I think she will benefit from cardiac catheterization to delineate coronary anatomy -we did discuss a noninvasive approach the stress test, but they agree to proceed with a cardiac catheterization -the risks benefits and alternatives of cardiac catheterization was discussed with her she agreed to proceed. -further recommendations post cardiac catheterization History of Present Illness History of Present Illness Consult date/time: 10/22/24 11:49 Reason For Visit: nstemi Narrative: Ms Addis Crockett this 64 year pleasant lady known to have hypertension, hyperlipidemia, former smoker was admitted with NSTEMI. 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 No prior similar episodes in the past the time of chest pain and her blood pressure was found to be low. Subsequently when she came to the ED blood pressure was normal EKG showed normal sinus rhythm, no dynamic ST or T-wave changes Troponin flat, mildly elevated Currently no more chest pain at the time of my evaluation Former smoker, left smoking 30 years ago Family history of CAD, father had sudden cardiac at age 39 Review of Systems Review of Systems: As reviewed above in HPI All systems reviewed & are unremarkable except as noted in HPI and below [facility] Past Medical History Medical History Migraine Endometriosis Hypothyroidism GERD (gastroesophageal reflux disease) HTN (hypertension) HLD (hyperlipidemia) Adenomatous colon polyp Basal cell carcinoma Surgical History Surgical History Status post full thickness skin graft Family History Family History Sibling Malignant neoplasm of prostate Mother Family history of malignant neoplasm of breast in first degree relative Father Family history of coronary artery disease, Onset Age: 39 Acute myocardial infarction Other Family history of malignant neoplasm Social History Social History Smoking packs per day: 1 Smoking cigarettes per day: 20.0 Years smoked: 10 Smoking pack-years: 10.00 Smoking status: Former smoker Tobacco type: cigarettes Alcohol intake: current Drinks per week: 4 Alcohol use details: WINE Substance use: never Substance use type: does not use Do You Feel Safe in your Home?: Yes Lack of Transportation: No Lack of Food: Never True Current Housing: I Have Housing Concerned About Future Housing: No Difficulty Paying Gas/Electric Bills: No Difficulty Paying for Meds: No Currently Unemployed: No Education: Don't Know Difficulty w/ Childcare or Family Care: No Living arrangements: with family Spiritual care concerns: No Meds Home Medications and Allergies Home Medications ?Medication ?Instructions ?Recorded ?Confirmed ?Type cetirizine 10 mg tablet (Zyrtec) 10 mg PO DAILY 07/11/19 10/21/24 History lansoprazole 15 mg capsule,delayed 15 mg PO DAILY 07/11/19 10/21/24 History release (Prevacid 24Hr) omega-3 fatty acids 1,000 mg 1,000 mg PO DAILY 07/11/19 10/21/24 History capsule (Fish Oil Concentrate) ascorbic acid (vitamin C) 1,000 mg 1 g PO DAILY 06/09/20 10/21/24 History tablet ttyboqsbajtj-Ph-rafs-minerals 18 1 tablet PO DAILY 06/09/20 10/21/24 History mg-0.4 mg tablet levothyroxine 112 mcg tablet 112 mcg PO DAILY #90 tabs 06/20/23 10/21/24 Rx aspirin 81 mg tablet 81 mg PO DAILY 09/04/23 10/21/24 History atorvastatin 20 mg tablet 40 mg PO DAILY 10/21/24 10/21/24 History magnesium citrate 250 mg PO DAILY 10/21/24 10/21/24 History Allergies Allergy/AdvReac Type Severity Reaction Status Date / Time cat dander Allergy Mild Swelling Verified 10/21/24 13:32 of Lip/Tongue/Throat pollen extracts Allergy Mild Sneezing Verified 10/21/24 13:32 Vital Signs Vital Signs - 24 hr 10/21/24 13:29 10/21/24 13:29 10/21/24 13:29 Temperature Pulse Rate 77 78 74 Respiratory Rate 18 18 Blood Pressure 123/81 123/81 Pulse Oximetry 97 97 Oxygen Delivery 10/21/24 13:40 10/21/24 14:00 10/21/24 14:30 Temperature Pulse Rate 74 74 Respiratory Rate 18 18 Blood Pressure 130/90 140/82 Pulse Oximetry 98 98 98 Oxygen Delivery Room Air 10/21/24 15:00 10/21/24 15:15 10/21/24 16:00 Temperature Pulse Rate 67 65 Respiratory Rate 18 16 Blood Pressure 121/71 125/65 Pulse Oximetry 97 100 Oxygen Delivery Room Air 10/21/24 16:00 10/21/24 16:00 10/21/24 18:00 Temperature 36.6 C Pulse Rate 60 62 67 Respiratory Rate 18 Blood Pressure 147/80 H Pulse Oximetry 97 Oxygen Delivery 10/21/24 20:00 10/21/24 20:00 10/21/24 20:00 Temperature 36.7 C Pulse Rate 75 71 66 Respiratory Rate 18 Blood Pressure 112/69 Pulse Oximetry 99 98 Oxygen Delivery Room Air 10/21/24 22:00 10/21/24 23:57 10/22/24 00:00 Temperature 36.6 C Pulse Rate 62 67 63 Respiratory Rate 16 Blood Pressure 110/53 L Pulse Oximetry 99 99 Oxygen Delivery Room Air 10/22/24 00:00 10/22/24 02:00 10/22/24 03:57 Temperature Pulse Rate 61 53 L 56 L Respiratory Rate Blood Pressure Pulse Oximetry 98 Oxygen Delivery Room Air 10/22/24 04:00 10/22/24 04:00 10/22/24 06:00 Temperature 36.5 C Pulse Rate 55 L 52 L 80 Respiratory Rate 16 Blood Pressure 115/69 Pulse Oximetry 99 Oxygen Delivery 10/22/24 08:00 10/22/24 08:00 10/22/24 08:00 Temperature 36.7 C Pulse Rate 62 62 Respiratory Rate 16 Blood Pressure 136/81 Pulse Oximetry 99 99 Oxygen Delivery Room Air 10/22/24 10:00 Temperature Pulse Rate 61 Respiratory Rate Blood Pressure Pulse Oximetry Oxygen Delivery Exam Narrative: A/Ox4, benign exam. Const: General: comfortable and no acute distress Other: , female, nontoxic appearance HENMT: Face/Nose/Sinus: Normal nares present Mouth: Yes moist mucous membranes Eyes: General: appearance normal, both eyes and all related structures Sclera: sclerae normal Pupils: Equal, round and reactive pupils present EOM: EOMs intact bilaterally Resp: Effort & Inspection: normal respiratory effort Auscultation: clear to auscultation bilaterally Cardio: Rate: regular rate Rhythm: regular rhythm Other: S1-S2 present without murmur, rub, ectopy GI: Other: Abdomen soft, nondistended, nontender. Normoactive bowel sounds in all quadrants. Skin: General skin exam: normal color and no rashes or lesions noted Wounds: no wounds Neuro: Cranial nerves: Yes Equal, round and reactive pupils present Speech: normal speech Motor exam (neuro): 5/5 motor strength present throughout Sensory Exam: normal sensation Other: A&O x4 Extrem: General: normal to inspection Psych: Mental Status: mental status grossly normal Affect: normal affect Other: Good insight and judgment, very pleasant Results Labs and Meds 10/22/24 03:49 10/22/24 03:49 Lab results: Cardiac Enzymes 10/21/24 10/21/24 10/21/24 Range/Units 11:45 15:03 17:39 AST 26 (14-36) U/L Troponin I 0.059 H* 0.057 H* 0.058 H* (0.000-0.034) ng/mL 10/22/24 Range/Units 03:49 AST 22 (14-36) U/L Troponin I (0.000-0.034) ng/mL Coagulation 10/21/24 Range/Units 11:45 PT 13.6 (11.1-14.7) Seconds APTT 26.8 (22.3-36.8) Seconds Lipids 10/22/24 Range/Units 03:49 Triglycerides 157 H (<150) mg/dL Cholesterol 143 (0-200) mg/dL CBC 10/21/24 10/22/24 Range/Units 11:45 03:49 WBC 5.3 4.4 L (4.5-10.0) K/mm3 RBC 4.78 4.21 (4.2-5.4) M/mm3 Hgb 14.3 12.7 (12.0-15.0) g/dL Hct 42.6 37.8 (37.0-47.0) % Plt Count 273 234 (150-375) k/mm3 Lymph # (Auto) 1.13 1.73 (0.9-3.2) K/mm3 [place] # (Auto) 0.3 0.4 (0.1-0.6) K/mm3 Eos # (Auto) 0.0 0.1 (0-0.3) K/mm3 Baso # (Auto) 0.0 0.0 (0.0-0.1) K/mm3 Comprehensive Metabolic Panel 10/21/24 10/22/24 Range/Units 11:45 03:49 Sodium 140 138 (137-145) mmol/L Potassium 3.8 3.8 (3.4-5.0) mmol/L Chloride 105 107 (98-107) mmol/L Carbon Dioxide 26 26 (22-30) mmol/L BUN 24 H 16 (7-17) mg/dL Creatinine 0.77 0.64 L (0.7-1.0) mg/dL Glucose 115 H 90 (65-110) mg/dL Calcium 9.6 8.8 (8.4-10.2) mg/dL AST 26 22 (14-36) U/L ALT 25 19 (6-35) U/L Alkaline Phosphatase 70 57 (38-126) U/L Total Protein 6.7 5.9 L (6.3-8.2) g/dL Albumin 4.3 3.6 (3.5-5.1) g/dL Intake and Output 10/21/24 10/22/24 10/22/24 23:59 07:59 15:59 Intake Total 920 450 Output Total 800 100 Balance 120 350 Intake: Oral 920 450 Output: Urine 800 100 Other: # Unmeasured Voids 1 Patient Weight 10/22/24 23:59 Weight 81.5 kg
--- NOTE | 2024-10-22 11:58 | PM.IMPN ---
Progress Note: A&P Assessment and Plan (1) NSTEMI (non-ST elevated myocardial infarction): Code(s): I21.4 - Non-ST elevation (NSTEMI) myocardial infarction Status: Acute Assessment and Plan: - EKG, initial: Sinus rhythm, rate 79. - CXR: No acute cardiopulmonary pathology. - Troponin: 0.059 -> 0.057 -> 0.058 - ASA 324 -> 81 daily - SL nitro PRN - cardiology consulted, Plan for catheterization - started on Lovenox 1 mg/kg BID - lipid panel with LDL 68. A1c normal at 5.2. On atorvastatin 840 mg daily. Recently increased dose. - no previous echo or cardiac cath on file - telemetry monitoring Plan Diet: Heart healthy, NPO midnight GI Prophylaxis: Not currently indicated DVT Prophylaxis: Lovenox SQ IV fluids: None Lines/Tubes: Peripheral IV Code Status: Full code Subjective Date/time seen: 10/22/24 11:58 Interval history: no further chest pain. No new complaints. Plan for catheterization today. Discussed with Cardiology. Review of Systems Review of Systems: All systems reviewed & are unremarkable except as noted in HPI and below Exam Narrative: GENERAL: The patient is well developed, not in acute distress HEENT: Nonicteric sclerae, PERRLA, EOMI. Oropharynx clear. Moist mucous membranes. Conjunctivae appear well perfused. CHEST: Chest wall is nontender. HEART: Regular rate and rhythm without murmur, rubs, or gallops LUNGS: Clear to auscultation bilaterally. no respiratory distress ABDOMEN: Soft, positive bowel sounds, non-tender, no organomegaly. SKIN: No rash, no excessive bruising, petechiae, or purpura. NEUROLOGIC: Cranial nerves II-XII intact, alert and oriented x 3, no gross motor deficits EXTREMITIES: no edema, cyanosis or clubbing Objective Data Vital Signs Vital Signs: Vital Signs - 24 hr 10/21/24 13:29 10/21/24 13:29 10/21/24 13:29 Temperature Pulse Rate 77 78 74 Respiratory Rate 18 18 Blood Pressure 123/81 123/81 Pulse Oximetry 97 97 Oxygen Delivery 10/21/24 13:40 10/21/24 14:00 10/21/24 14:30 Temperature Pulse Rate 74 74 Respiratory Rate 18 18 Blood Pressure 130/90 140/82 Pulse Oximetry 98 98 98 Oxygen Delivery Room Air 10/21/24 15:00 10/21/24 15:15 10/21/24 16:00 Temperature Pulse Rate 67 65 Respiratory Rate 18 16 Blood Pressure 121/71 125/65 Pulse Oximetry 97 100 Oxygen Delivery Room Air 10/21/24 16:00 10/21/24 16:00 10/21/24 18:00 Temperature 98 F Pulse Rate 60 62 67 Respiratory Rate 18 Blood Pressure 147/80 H Pulse Oximetry 97 Oxygen Delivery 10/21/24 20:00 10/21/24 20:00 10/21/24 20:00 Temperature 98.0 F Pulse Rate 75 71 66 Respiratory Rate 18 Blood Pressure 112/69 Pulse Oximetry 99 98 Oxygen Delivery Room Air 10/21/24 22:00 10/21/24 23:57 10/22/24 00:00 Temperature 97.8 F Pulse Rate 62 67 63 Respiratory Rate 16 Blood Pressure 110/53 L Pulse Oximetry 99 99 Oxygen Delivery Room Air 10/22/24 00:00 10/22/24 02:00 10/22/24 03:57 Temperature Pulse Rate 61 53 L 56 L Respiratory Rate Blood Pressure Pulse Oximetry 98 Oxygen Delivery Room Air 10/22/24 04:00 10/22/24 04:00 10/22/24 06:00 Temperature 97.7 F Pulse Rate 55 L 52 L 80 Respiratory Rate 16 Blood Pressure 115/69 Pulse Oximetry 99 Oxygen Delivery 10/22/24 08:00 10/22/24 08:00 10/22/24 08:00 Temperature 98.0 F Pulse Rate 62 62 Respiratory Rate 16 Blood Pressure 136/81 Pulse Oximetry 99 99 Oxygen Delivery Room Air 10/22/24 10:00 Temperature Pulse Rate 61 Respiratory Rate Blood Pressure Pulse Oximetry Oxygen Delivery Intake/Output Intake/Output: Intake & Output 10/19/24 10/20/24 10/21/24 10/22/24 23:59 23:59 23:59 23:59 Intake Total 920 450 Output Total 800 100 Balance 120 350 Meds/Results Medications: Active Medications Generic Name Dose Route Start Last Admin Trade Name Freq PRN Reason Stop Dose Admin Acetaminophen 650 mg 10/21/24 14:03 Acetaminophen 325 Mg Tablet PO Q4H PRN Mild Pain (1-3) or Fever Ascorbic Acid 1,000 mg 10/22/24 09:00 10/22/24 09:52 Ascorbic Acid 500 Mg Tablet PO 1,000 mg DAILY DAMIEN Administration Aspirin 81 mg 10/22/24 09:00 10/22/24 09:52 Aspirin 81 Mg Enteric Tablet PO 81 mg QAM DAMIEN Administration Atorvastatin Calcium 40 mg 10/22/24 09:00 10/22/24 09:52 Atorvastatin 40 Mg Tablet PO 40 mg DAILY DAMIEN Administration Enoxaparin Sodium 83 mg 10/22/24 03:00 10/22/24 03:52 Enoxaparin 100 Mg/Ml Syringe SUB-Q 83 mg Q12H DAMIEN Administration Fish Oil 1 gm 10/22/24 09:00 10/22/24 09:52 [place] 3 Polyunsat Fatty Acids 1 Gm Cap PO 1 gm DAILY DAMIEN Administration Levothyroxine Sodium 112 mcg 10/22/24 06:30 10/22/24 05:32 Levothyroxine Sodium 112 Mcg Tablet PO 112 mcg DAILY@0630 DAMIEN Administration Loratadine 10 mg 10/22/24 09:00 10/22/24 09:52 Loratadine 10 Mg Tablet PO 10 mg QAM DAMIEN Administration Melatonin 5 mg 10/21/24 23:00 10/21/24 23:52 Melatonin 5 Mg Tablet PO 5 mg HS DAMIEN Administration Multivitamins/Calcium 1 tablet 10/22/24 09:00 10/22/24 09:52 Therapeutic Multivitamins/Minerals Tab (*Bkc) PO 1 tablet DAILY DAMIEN Administration Nitroglycerin 0.4 mg 10/21/24 14:21 Nitroglycerin Sl 0.4 Mg Tablet SUBLINGUAL Q5MIN PRN Chest Pain Ondansetron HCl 4 mg 10/21/24 14:03 Ondansetron Inj 4 Mg/2 Ml Vial IV PUSH Q4H PRN Nausea Pantoprazole Sodium 40 mg 10/22/24 09:00 10/22/24 09:53 Pantoprazole 40 Mg Tablet PO 40 mg QAM DAMIEN Administration Radiology Results: ITS Impressions Chest X-Ray 10/21/24 12:51 IMPRESSION: No acute cardiopulmonary pathology. Labs Labs: Laboratory Results - last 24 hr 10/21/24 10/21/24 10/21/24 11:45 15:03 17:39 WBC 5.3 RBC 4.78 Hgb 14.3 Hct 42.6 MCV 89.1 MCH 29.9 MCHC 33.6 RDW 11.9 Plt Count 273 MPV 10.3 Immature Gran % (Auto) 0.2 Neut % (Auto) 71.2 Lymph % (Auto) 21.5 [place] % (Auto) 6.3 Eos % (Auto) 0.6 Baso % (Auto) 0.2 Lymph # (Auto) 1.13 [place] # (Auto) 0.3 Eos # (Auto) 0.0 Baso # (Auto) 0.0 Abs Immat Gran (auto) 0.01 Absolute Neuts (auto) 3.7 Absolute Nucleated RBC 0.000 Nucleated RBC % 0.0 PT 13.6 INR 1.0 APTT 26.8 Sodium 140 Potassium 3.8 Chloride 105 Carbon Dioxide 26 Anion Gap 9 BUN 24 H Creatinine 0.77 Estim Creat Clear Calc 69 Estimated GFR > 60 Glucose 115 H Hemoglobin A1c Calcium 9.6 Total Bilirubin 0.4 AST 26 ALT 25 Alkaline Phosphatase 70 Troponin I 0.059 H* 0.057 H* 0.058 H* Total Protein 6.7 Albumin 4.3 Triglycerides Cholesterol LDL Cholesterol Direct HDL Direct Lipase 73 10/22/24 03:49 WBC 4.4 L RBC 4.21 Hgb 12.7 Hct 37.8 MCV 89.8 MCH 30.2 MCHC 33.6 RDW 12.3 Plt Count 234 MPV 10.8 H Immature Gran % (Auto) 0.2 Neut % (Auto) 48.5 Lymph % (Auto) 39.6 [place] % (Auto) 8.0 Eos % (Auto) 3.2 Baso % (Auto) 0.5 Lymph # (Auto) 1.73 [place] # (Auto) 0.4 Eos # (Auto) 0.1 Baso # (Auto) 0.0 Abs Immat Gran (auto) 0.01 Absolute Neuts (auto) 2.1 Absolute Nucleated RBC 0.000 Nucleated RBC % 0.0 PT INR APTT Sodium 138 Potassium 3.8 Chloride 107 Carbon Dioxide 26 Anion Gap 5 BUN 16 Creatinine 0.64 L Estim Creat Clear Calc 82 Estimated GFR > 60 Glucose 90 Hemoglobin A1c 5.2 Calcium 8.8 Total Bilirubin 0.4 AST 22 ALT 19 Alkaline Phosphatase 57 Troponin I Total Protein 5.9 L Albumin 3.6 Triglycerides 157 H Cholesterol 143 LDL Cholesterol Direct 68 HDL Direct 38 Lipase
--- NOTE | 2024-10-22 14:23 | P.SEDATION_ITS ---
Moderate Sedation Note-Pt Data Patient Data Diagnosis: NSTEMI Present Complaint: NSTEMI Procedure to be performed/Plan: Cardiac catheterization Coronary angiography Allergies Allergy/AdvReac Type Severity Reaction Status Date / Time cat dander Allergy Mild Swelling Verified 10/21/24 13:32 of Lip/Tongue/Throat pollen extracts Allergy Mild Sneezing Verified 10/21/24 13:32 Home Medications ?Medication ?Instructions ?Recorded ?Confirmed ?Type cetirizine 10 mg tablet (Zyrtec) 10 mg PO DAILY 07/11/19 10/21/24 History lansoprazole 15 mg capsule,delayed 15 mg PO DAILY 07/11/19 10/21/24 History release (Prevacid 24Hr) omega-3 fatty acids 1,000 mg 1,000 mg PO DAILY 07/11/19 10/21/24 History capsule (Fish Oil Concentrate) ascorbic acid (vitamin C) 1,000 mg 1 g PO DAILY 06/09/20 10/21/24 History tablet [id number]-Vz-pvxr-minerals 18 1 tablet PO DAILY 06/09/20 10/21/24 History mg-0.4 mg tablet levothyroxine 112 mcg tablet 112 mcg PO DAILY #90 tabs 06/20/23 10/21/24 Rx aspirin 81 mg tablet 81 mg PO DAILY 09/04/23 10/21/24 History atorvastatin 20 mg tablet 40 mg PO DAILY 10/21/24 10/21/24 History magnesium citrate 250 mg PO DAILY 10/21/24 10/21/24 History Current Medications: Active Medications Acetaminophen (Acetaminophen 325 Mg Tablet) 650 mg PO Q4H PRN PRN Reason: Mild Pain (1-3) or Fever Ascorbic Acid (Ascorbic Acid 500 Mg Tablet) 1,000 mg PO DAILY [facility] Last Admin: 10/22/24 09:52 Dose: 1,000 mg Aspirin (Aspirin 81 Mg Enteric Tablet) 81 mg PO QAM [facility] Last Admin: 10/22/24 09:52 Dose: 81 mg Atorvastatin Calcium (Atorvastatin 40 Mg Tablet) 40 mg PO DAILY [facility] Last Admin: 10/22/24 09:52 Dose: 40 mg Enoxaparin Sodium (Enoxaparin 100 Mg/Ml Syringe) 83 mg SUB-Q Q12H [facility] Last Admin: 10/22/24 03:52 Dose: 83 mg Fish Oil ([place] 3 Polyunsat Fatty Acids 1 Gm Cap) 1 gm PO DAILY [facility] Last Admin: 10/22/24 09:52 Dose: 1 gm Levothyroxine Sodium (Levothyroxine Sodium 112 Mcg Tablet) 112 mcg PO DAILY@0630 [facility] Last Admin: 10/22/24 05:32 Dose: 112 mcg Loratadine (Loratadine 10 Mg Tablet) 10 mg PO QAM [facility] Last Admin: 10/22/24 09:52 Dose: 10 mg Melatonin (Melatonin 5 Mg Tablet) 5 mg PO HS [facility] Last Admin: 10/21/24 23:52 Dose: 5 mg Multivitamins/Calcium (Therapeutic Multivitamins/Minerals Tab (*Bkc)) 1 tablet PO DAILY [facility] Last Admin: 10/22/24 09:52 Dose: 1 tablet Nitroglycerin (Nitroglycerin Sl 0.4 Mg Tablet) 0.4 mg SUBLINGUAL Q5MIN PRN PRN Reason: Chest Pain Ondansetron HCl (Ondansetron Inj 4 Mg/2 Ml Vial) 4 mg IV PUSH Q4H PRN PRN Reason: Nausea Pantoprazole Sodium ([facility]op[facility]ole 40 Mg Tablet) [facility] Admin: 10/22/24 09:53 Dose: 40 mg Sedation/Anesthesia: No previous sedation/anesthesia problems (including family history). [facility] Past Medical History Medical History Migraine Endometriosis Hypothyroidism GERD (gastroesophageal reflux disease) HTN (hypertension) HLD (hyperlipidemia) Adenomatous colon polyp Basal cell carcinoma Surgical History Surgical History Status post full thickness skin graft Family History Family History Sibling Malignant neoplasm of prostate Mother Family history of malignant neoplasm of breast in first degree relative Father Family history of coronary artery disease, Onset Age: 39 Acute myocardial infarction Other Family history of malignant neoplasm Social History Social History Smoking packs per day: 1 Smoking cigarettes per day: 20.0 Years smoked: 10 Smoking pack-years: 10.00 Smoking status: Former smoker Tobacco type: cigarettes Alcohol intake: current Drinks per week: 4 Alcohol use details: WINE Substance use: never Substance use type: does not use Do You Feel Safe in your Home?: Yes Lack of Transportation: No Lack of Food: Never True Current Housing: I Have Housing Concerned About Future Housing: No Difficulty Paying Gas/Electric Bills: No Difficulty Paying for Meds: No Currently Unemployed: No Education: Don't Know Difficulty w/ Childcare or Family Care: No Living arrangements: with family Spiritual care concerns: No Mod Sed Physical Exam Physical Exam Pre Procedural Exam: Normal: Appearance, Eyes, Ears, Nose, Neck, Throat, Airway, Lungs, Heart Size, Heart Rate, Heart Rhythm, Neuro Exam, Abdomen, Liver, Kidneys, Spleen, Breasts, Genitalia, Extremities and Skin Hours since solid foods: 12 Hours since liquid intake: 12 Mallampati Classification: class II Internal Medicine - PN: Obj Da Vital Signs Vital Signs: Vital Signs - 24 hr 10/21/24 14:30 10/21/24 15:00 10/21/24 15:15 Temperature Pulse Rate 74 67 65 Respiratory Rate 18 18 16 Blood Pressure 140/82 121/71 125/65 Pulse Oximetry 98 97 100 Oxygen Delivery 10/21/24 16:00 10/21/24 16:00 10/21/24 16:00 Temperature 36.6 C Pulse Rate 60 62 Respiratory Rate 18 Blood Pressure 147/80 H Pulse Oximetry 97 Oxygen Delivery Room Air 10/21/24 18:00 10/21/24 20:00 10/21/24 20:00 Temperature Pulse Rate 67 75 71 Respiratory Rate Blood Pressure Pulse Oximetry 99 Oxygen Delivery Room Air 10/21/24 20:00 10/21/24 22:00 10/21/24 23:57 Temperature 36.7 C Pulse Rate 66 62 67 Respiratory Rate 18 Blood Pressure 112/69 Pulse Oximetry 98 99 Oxygen Delivery Room Air 10/22/24 00:00 10/22/24 00:00 10/22/24 02:00 Temperature 36.6 C Pulse Rate 63 61 53 L Respiratory Rate 16 Blood Pressure 110/53 L Pulse Oximetry 99 Oxygen Delivery 10/22/24 03:57 10/22/24 04:00 10/22/24 04:00 Temperature 36.5 C Pulse Rate 56 L 55 L 52 L Respiratory Rate 16 Blood Pressure 115/69 Pulse Oximetry 98 99 Oxygen Delivery Room Air 10/22/24 06:00 10/22/24 08:00 10/22/24 08:00 Temperature 36.7 C Pulse Rate 80 62 Respiratory Rate 16 Blood Pressure 136/81 Pulse Oximetry 99 99 Oxygen Delivery Room Air 10/22/24 08:00 10/22/24 10:00 10/22/24 12:00 Temperature 36.5 C Pulse Rate 62 61 63 Respiratory Rate 12 Blood Pressure 155/77 H Pulse Oximetry 99 Oxygen Delivery Intake/Output Intake/Output: Intake & Output 10/19/24 10/20/24 10/21/24 10/22/24 23:59 23:59 23:59 23:59 Intake Total 920 450 Output Total 800 100 Balance 120 350 Meds/Results Medications: Active Medications Generic Name Dose Route Start Last Admin Trade Name Freq PRN Reason Stop Dose Admin Acetaminophen 650 mg 10/21/24 14:03 Acetaminophen 325 Mg Tablet PO Q4H PRN Mild Pain (1-3) or Fever Ascorbic Acid 1,000 mg 10/22/24 09:00 10/22/24 09:52 Ascorbic Acid 500 Mg Tablet PO 1,000 mg DAILY DAMIEN Administration Aspirin 81 mg 10/22/24 09:00 10/22/24 09:52 Aspirin 81 Mg Enteric Tablet PO 81 mg QAM DAMIEN Administration Atorvastatin Calcium 40 mg 10/22/24 09:00 10/22/24 09:52 Atorvastatin 40 Mg Tablet PO 40 mg DAILY DAMIEN Administration Enoxaparin Sodium 83 mg 10/22/24 03:00 10/22/24 03:52 Enoxaparin 100 Mg/Ml Syringe SUB-Q 83 mg Q12H DAMIEN Administration Fish Oil 1 gm 10/22/24 09:00 10/22/24 09:52 [place] 3 Polyunsat Fatty Acids 1 Gm Cap PO 1 gm DAILY DAMIEN Administration Levothyroxine Sodium 112 mcg 10/22/24 06:30 10/22/24 05:32 Levothyroxine Sodium 112 Mcg Tablet PO 112 mcg DAILY@0630 DAMIEN Administration Loratadine 10 mg 10/22/24 09:00 10/22/24 09:52 Loratadine 10 Mg Tablet PO 10 mg QAM DAMIEN Administration Melatonin 5 mg 10/21/24 23:00 10/21/24 23:52 Melatonin 5 Mg Tablet PO 5 mg HS DAMIEN Administration Multivitamins/Calcium 1 tablet 10/22/24 09:00 10/22/24 09:52 Therapeutic Multivitamins/Minerals Tab (*Bkc) PO 1 tablet DAILY DAMIEN Administration Nitroglycerin 0.4 mg 10/21/24 14:21 Nitroglycerin Sl 0.4 Mg Tablet SUBLINGUAL Q5MIN PRN Chest Pain Ondansetron HCl 4 mg 10/21/24 14:03 Ondansetron Inj 4 Mg/2 Ml Vial IV PUSH Q4H PRN Nausea Pantoprazole Sodium 40 mg 10/22/24 09:00 10/22/24 09:53 Pantoprazole 40 Mg Tablet PO 40 mg QAM DAMIEN Administration Radiology Results: ITS Impressions Chest X-Ray 10/21/24 12:51 IMPRESSION: No acute cardiopulmonary pathology. Labs 10/22/24 03:49 10/22/24 03:49 Labs: Laboratory Results - last 24 hr 10/21/24 10/21/24 10/22/24 15:03 17:39 03:49 WBC 4.4 L RBC 4.21 Hgb 12.7 Hct 37.8 MCV 89.8 MCH 30.2 MCHC 33.6 RDW 12.3 Plt Count 234 MPV 10.8 H Immature Gran % (Auto) 0.2 Neut % (Auto) 48.5 Lymph % (Auto) 39.6 [place] % (Auto) 8.0 Eos % (Auto) 3.2 Baso % (Auto) 0.5 Lymph # (Auto) 1.73 [place] # (Auto) 0.4 Eos # (Auto) 0.1 Baso # (Auto) 0.0 Abs Immat Gran (auto) 0.01 Absolute Neuts (auto) 2.1 Absolute Nucleated RBC 0.000 Nucleated RBC % 0.0 Sodium 138 Potassium 3.8 Chloride 107 Carbon Dioxide 26 Anion Gap 5 BUN 16 Creatinine 0.64 L Estim Creat Clear Calc 82 Estimated GFR > 60 Glucose 90 Hemoglobin A1c 5.2 Calcium 8.8 Total Bilirubin 0.4 AST 22 ALT 19 Alkaline Phosphatase 57 Troponin I 0.057 H* 0.058 H* Total Protein 5.9 L Albumin 3.6 Triglycerides 157 H Cholesterol 143 LDL Cholesterol Direct 68 HDL Direct 38 ASA Classification/Sedation ASA Classification/Sedation ASA Class: III Emergent: No Risks: Risks, benefits and alternatives explained and patient/family accepted plan for sedation. Patient re-evaluated immediately prior to sedation.
--- NOTE | 2024-10-22 15:06 | WPDCARDPROC ---
Cardiac Cath Procedure Note Date of procedure:: 10/22/24 Performing physician:: Judi Wild MD Indication:: NSTEMI Procedure Procedure performed:: 1. Left heart catheterization 2. Coronary angiography Sedation/Medication given:: Versed 1 mg Fentanyl 25 mcg Access site:: Right radial Estimated blood loss:: 2 cc Procedure note:: Right radial access was done after informed consent was taken and the exercise was draped and prepped as per standard precautions. The left main was engaged using JL 3.5 catheter and the RCA was engaged using a 5 [place] JR4 catheter. Angiographic images were taken. Subsequently the aortic valve was crossed using a JR4 catheter and LVEDP was measured. Hemostasis was achieved with a vascular band Findings:: 1. Left main large caliber vessel divides into LAD and circumflex branches. No angiographic evidence of atherosclerotic disease 2. LAD; large caliber transapical vessel divides into large caliber diagonal branch. No angiographic evidence of atherosclerotic disease seen in the LAD or its branches 3. Left circumflex; large caliber nondominant vessel gives rise to a large caliber OM1. No angiographic evidence of atherosclerotic disease 4. Right coronary artery: Large caliber dominant vessel; gives rise to PDA and PLV branches. Mid RCA has luminal irregularities 5. LVEDP 20 6. No significant LV-AO gradient on pullback Conclusion:: 1. [place] 2. Possibility of coronary vasospasms Assessment and Plan Assessment and plan (1) NSTEMI (non-ST elevated myocardial infarction): Code(s): I21.4 - Non-ST elevation (NSTEMI) myocardial infarction Status: Acute Plan -uninterrupted DAPT for 12 months -total statin to continue at 40 mg once daily -Will keep on low-dose calcium channel julieth
[2024-10-22] MEDS: CLOPIDOGREL BISULFATE 300 MG TABLET 600 MG PO (18:44)
[2024-10-22] MEDS: SODIUM CHLORIDE 0.9% IV 500 ML 75 ML (18:45)
[2024-10-22] MEDS: SODIUM CHLORIDE 0.9% IV 1,000 ML 75 ML IV CONT (18:45)
[2024-10-22] MEDS: MELATONIN 5 MG TABLET PO (22:31)
[2024-10-23] VITALS (12 sets, daily range): BP systolic 128–165; BP diastolic 51–84; PULSE 57–71; RESP 16–18; TEMP 36.5–36.7; O2SAT 97–100
--- NOTE | 2024-10-23 | ECHO_ITS ---
Patient Info Name: Addis Crockett Age: 64 years : 1960 Gender: Female Ht: 65 in Wt: 180 lbs BSA: 1.96 m2 HR: 63 bpm BP: 128 / 65 mmHg Technical Quality: Good Exam Date: 10/23/2024 7:44 AM Patient Status: I Admit Date: 10/21/2024 Exam Type: CA echo doppler color flow Complete two-dimensional, color flow and Doppler transthoracic echocardiogram is performed. Staff Referring Physician: Ida Roldan III [employer] Repairer: Kamille Valdez Attending Provider: Dick Hoskins Summary 1. Complete two-dimensional, color flow and Doppler transthoracic echocardiogram is performed. 2. Left ventricular systolic function is normal, estimated at 55-60. 3. The left ventricular diastolic function is grade I diastolic dysfunction. 4. There is no increased left ventricular wall thickness. 5. Right ventricular chamber dimension is normal. 6. Right ventricular systolic function is normal. 7. There is mild mitral valve regurgitation. 8. There is mild tricuspid valve regurgitation. 9. No pulmonary hypertension, estimated pulmonary arterial systolic pressure is 26 mmHg. 10. Normal inferior vena cava with >50% collapse upon inspiration consistent with normal right atrial pressure, 5 mmHg. Left Ventricle Left ventricular chamber dimension is normal. Left ventricular systolic function is normal, estimated at 55-60. There is no increased left ventricular wall thickness. Left ventricular septal wall motion is normal. The left ventricular diastolic function is grade I diastolic dysfunction. Right Ventricle Right ventricular chamber dimension is normal. Right ventricular systolic function is normal. Left Atria Left atrial chamber dimension is normal. Right Atria Right atrial chamber dimension is normal. Aortic Valve The aortic valve is trileaflet. There is no aortic valve sclerosis. There is no aortic valve stenosis. There is no aortic valve regurgitation. Pulmonic Valve The pulmonic valve is normal. There is no pulmonic valve stenosis. There is no pulmonic regurgitation. Mitral Valve The mitral valve has normal leaflets. There is no mitral valve stenosis. There is mild mitral valve regurgitation. Tricuspid Valve The tricuspid valve leaflets are normal. There is no significant tricuspid valve stenosis. There is mild tricuspid valve regurgitation. No pulmonary hypertension, estimated pulmonary arterial systolic pressure is 26 mmHg. Pericardium/Pleural The pericardium appears normal. There is no pericardial effusion. Inferior Vena Cava Normal inferior vena cava with >50% collapse upon inspiration consistent with normal right atrial pressure, 5 mmHg. Aorta The aortic root size at the sinus of Valsalva is normal. The prox ascending aorta size is normal. Left Ventricular Outflow Tract Name Value Normal LVOT 2D LVOT Diameter 2.0 cm LVOT Doppler LVOT Peak Velocity 122 cm/s LVOT Peak Gradient 6 mmHg LVOT Mean Gradient 3 mmHg LVOT VTI 28 cm LVOT VTI/AV VTI Ratio 0.7 LVOT Stroke Volume 90 ml LVOT CO 5.9 l/min LVOT CI 3.0 l/min/m2 Pulmonic Valve Name Value Normal PV Doppler PV Peak Velocity 102 cm/s PV Peak Gradient 4 mmHg Mitral Valve Name Value Normal MV Doppler MV Peak Gradient 8 mmHg MV Mean Gradient 3 mmHg MV Area (Cont Eq VTI) 2.0 cm2 MV Regurgitation Doppler MR Peak Gradient 160 mmHg MV Diastolic Function MV E Peak Velocity 108 cm/s MV A Peak Velocity 121 cm/s MV E/A 0.9 MV Decel Time (PW) 205 ms MV Annular TDI MV E/e' (Septal) 10.7 MV E/e' (Lateral) 12.3 MV E/e' (Average) 11.5 Tricuspid Valve Name Value Normal TV Regurgitation Doppler TR Peak Velocity 231 cm/s TR Peak Gradient 21 mmHg Estimated PAP/RSVP RA Pressure 5 mmHg <=5 PA Systolic Pressure 26 mmHg <36 RV Systolic Pressure 26 mmHg <36 TV Annular TDI TV Lateral Lizbet s' Velocity 14.4 cm/s >=9.5 Aortic Valve Name Value Normal AV Doppler AV Peak Velocity 180 cm/s AV Peak Gradient 13 mmHg AV Mean Gradient 7 mmHg AV VTI 39 cm AV Area (Cont Eq VTI) 2.3 cm2 >=3.0 AV Area (Cont Eq Glenn) 2.2 cm2 AV DI (Glenn) 0.68 AV Regurgitation 2D LVOT Area 3.2 cm2 Ventricles Name Value Normal LV Dimensions 2D/MM IVS Diastolic Thickness (2D) 0.9 cm 0.6-1.0 LVID Diastole (2D) 4.4 cm 3.8-5.2 LVIW Diastolic Thickness (2D) 0.9 cm 0.6-0.9 LVID Systole (2D) 3.2 cm 2.2-3.5 LVOT Diameter 2.0 cm LV Mass (2D Cubed) 130.20 g 67.00-162.00 LV Mass Index (2D Cubed) 66 g/m2 43-95 Relative Wall Thickness (2D) 0.42 <=0.42 LV Fractional Shortening/Ejection Fraction 2D/MM LV Fractional Shortening (2D) 28 % 27-45 LV EF (2D Teichholz) 54 % LV Diastolic Volume (4C MOD) 92 ml LV EF (4C MOD) 56 % LV Diastolic Volume (2C MOD) 87 ml LV EF (2C MOD) 67 % LV Diastolic Volume (BP MOD) 90 ml 46-106 LV Diastolic Volume Index (BP MOD) 46 ml/m2 29-61 LV Systolic Volume (BP MOD) 34 ml 14-42 LV Systolic Volume Index (BP MOD) 17 ml/m2 8-24 LV EF (BP MOD) 62 % 54-74 LV Diastolic Length (4C) 8.0 cm LV Systolic Length (4C) 6.8 cm LV Stroke Volume (4C MOD) 51 ml Atria Name Value Normal LA Dimensions LA Volume (4C A-L) 49 ml LA Volume (BP A-L) 52 ml RA Dimensions RA Systolic Major Morris Length (4C) 5.1 cm 2.2-2.8 RA Area (4C) 13.7 cm2 <=18.0 Report Signatures
[2024-10-23] MEDS: ENOXAPARIN 100 MG/ML SYRINGE 83 MG SUB-Q (05:44)
[2024-10-23] MEDS: LEVOTHYROXINE SODIUM 112 MCG TABLET PO (05:45)
[2024-10-23] MEDS: OMEGA 3 POLYUNSAT FATTY ACIDS 1 GM CAP PO (10:24)
[2024-10-23] MEDS: ASCORBIC ACID 500 MG TABLET 1000 MG PO (10:24)
[2024-10-23] MEDS: PANTOPRAZOLE 40 MG TABLET PO (10:25)
[2024-10-23] MEDS: CLOPIDOGREL BISULFATE 75 MG TABLET PO (10:25)
[2024-10-23] MEDS: LORATADINE 10 MG TABLET PO (10:25)
[2024-10-23] MEDS: ATORVASTATIN 40 MG TABLET PO (10:25)
[2024-10-23] MEDS: ASPIRIN 81 MG ENTERIC TABLET PO (10:25)
[2024-10-23] MEDS: THERAPEUTIC MULTIVITAMINS/MINERALS TAB (*BKC) 1 TABLET PO (10:25)
--- NOTE | 2024-10-23 16:07 | PM.DS ---
DS: Admitting Diagnosis Discharge Date 10/23/24 Admitting Diagnosis Chest pain DS: Discharge Diagnosis Discharge Diagnosis (1) NSTEMI (non-ST elevated myocardial infarction): Code(s): I21.4 - Non-ST elevation (NSTEMI) myocardial infarction Status: Acute (2) HTN (hypertension): Code(s): I10 - Essential (primary) hypertension Status: Acute (3) HLD (hyperlipidemia): Code(s): E78.5 - Hyperlipidemia, unspecified Status: Acute DS: Summary Hospital Course Reason for hospitalization: 64yo female with HTN, HLD, and migraines here for chest pain. Please see H&P for details. Hospital Course: Initial EKG showing Sinus rhythm, rate 79. Repeat EKG also was normal. CXR was clear. Troponin elevated to 0.059 -> 0.057 -> 0.058 but flat. She was treated with ASA. Cardiology consulted and she underwent heart catheterization. Lovenox therapeutic dosing added. Lipid panel with LDL 68. A1c normal at 5.2. On atorvastatin 40 mg daily which was continued. Echo showing EF 55-60% with Grade I diastolic dysfunction and mild valvular disease. LHC performed showing no significant coronary disease. 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 Norvasc added. She overall did well and was able to be discharged home on 10/23/24. Status at Discharge Cognitive/behavioral status at discharge: stable Time Spent with Patient Time attestation: Total time spent providing and/or coordinating discharge services: 32 minutes Time spent: Greater than 30 minutes Exam Narrative: AF 97.7 134/51 69 16 97% ra Gen - NARD Chest - CTA bilaterally, nml RR CV - RRR S1/S2. Tele showing occasional PVCs Abd - Soft, NT/ND, Positive BS Ext - No pedal edema Neuro - Alert and oriented. Nonfocal exam. Psych - Nml mood and affect Skin - Warm and dry Discharge Plan Discharge Attending physician on discharge: Rio Thompson Consulting providers: Judi Wild Discharging Clinician: Rio Thompson Anticipated Discharge Date/Time: 10/23/24 16:15 Patient Disposition: Home Activity: other - see discharge instructions Diet: heart healthy Discharge Instructions: [facility] [address] [place] [address] DISCHARGE INSTRUCTIONS - POST CARDIAC CATH Activity Restriction 1. No Driving for 24 hours 2. No lifting, pushing or pulling more than 10 LBS for 1 week 3. No strenuous activity or exercising for 1 week 4. Shower after 24 hours, do not soak in any water such as hot tubs or bath tubs Wound Care 1. Remove dressing 24 hours after your procedure prior to showering 2. Lather soap and water to puncture site and rinse then pat dry 3. You may apply a new band aid to the site and remove aft er 24 hours then leave open to air 4. Monitor daily for redness, drainage, mild swelling and fever Report IMMEDIATELY: CALL 911 1. If you experience any swelling or bleeding from puncture site. Hold firm pressure over the puncture site until help arrives 2. If you experience any new discomfort in you back, neck, jaw, stomach or arm. Any shortness of breath, nausea, vo miting, or cold sweats 3. If you experience any swelling, tenderness, or numbness in your leg or if your leg becomes cold or has color changes. Follow Up 1. Follow your doctors discharge instructions on resuming your medications. Some medications will need to be held after your procedure 2. Follow up with the office to schedule your next appointment with your doctor 3. Drink plenty of water following your procedure, avoid alcohol If you received a stent or a closure device keep your card with you such as in your wallet. Present your card to your doctor appointments to update your health care information. *For any other questions please call the office at [phone]. Office hours are 8AM 4:30PM Monday through Monday. Follow-up with your primary care provider in 1-2 weeks. Please call for appointment. Thank you for using [facility] for your health care needs. Patient Instructions: Antibiotic Form Patient Language: Emirati Stand Alone Forms: General Discharge Information Follow-up/Referrals: Judi Wild MD [Physician] - Call for Appointment PHYSICIAN NOT ON STAFF,NONSTAFF [Primary Care Provider] - Call for Appointment Discharge Medications: New amlodipine [Norvasc] 5 mg Tablet 5 mg PO QAM Qty: 30 2RF clopidogrel 75 mg Tablet 75 mg PO QAM Qty: 30 2RF Continued cetirizine [Zyrtec] 10 mg tablet 10 mg PO DAILY lansoprazole [Prevacid 24Hr] 15 mg capsule,delayed release(DR/EC) 15 mg PO DAILY omega-3 fatty acids [Fish Oil Concentrate] 1,000 mg capsule 1,000 mg PO DAILY magnesium citrate 250 mg 250 mg PO DAILY atorvastatin 20 mg tablet 40 mg PO DAILY Rx Instructions: TAKE ONE TABLET BY MOUTH ONCE DAILY ascorbic acid (vitamin C) 1,000 mg Tablet 1 g PO DAILY Women's Daily Multivitamin 18-0.4 mg Tablet 1 tablet PO DAILY aspirin 81 mg Tablet 81 mg PO DAILY levothyroxine 112 mcg tablet 112 mcg PO DAILY Qty: 90 2RF Date of admission: 10/21/24 14:03 Primary Care Provider: PHYSICIAN NOT ON STAFF,NONSTAFF Admitting Provider: Dick Hoskins Attending physician on admission: Dick Hoskins Condition: Stable Hospitalist MIPS Heart Failure (Exclusion) Patient has history of Heart Transplant or Left Ventricular Assistive Device?: No IF YES, STOP HERE Heart Failure (Qualifier) Patient has current or prior documentation of LVEF less than or equal to 40%, or mod/servere depressed LVSF?: No IF NO, STOP HERE
--- NOTE | 2024-10-23 16:21 | PM.PNCARD ---
Progress Note: A&P Assessment and Plan (1) NSTEMI (non-ST elevated myocardial infarction): Code(s): I21.4 - Non-ST elevation (NSTEMI) myocardial infarction Status: Acute Plan 1. NSTEMIi; MINOCA 2. Hypertension 3. Hyperlipidemia -patient can be discharged home -uninterrupted DAPT for 12 months -Atorvastatin to continue at 40 mg once daily -amlodipine 5 mg once daily; will help with coronary vasospasm as well Subjective Date/time seen: 10/23/24 16:21 Interval history: Doing well no acute events overnight Cardiac catheterization showed no obstructive CAD Review of Systems Review of Systems: As reviewed above in HPI All systems reviewed & are unremarkable except as noted in HPI and below Exam Narrative: A/Ox4, benign exam. Const: General: comfortable and no acute distress Other: , female, nontoxic appearance HENMT: Face/Nose/Sinus: Normal nares present Mouth: Yes moist mucous membranes Eyes: General: appearance normal, both eyes and all related structures Sclera: sclerae normal Pupils: Equal, round and reactive pupils present EOM: EOMs intact bilaterally Resp: Effort & Inspection: normal respiratory effort Auscultation: clear to auscultation bilaterally Cardio: Rate: regular rate Rhythm: regular rhythm Other: S1-S2 present without murmur, rub, ectopy GI: Other: Abdomen soft, nondistended, nontender. Normoactive bowel sounds in all quadrants. Skin: General skin exam: normal color and no rashes or lesions noted Wounds: no wounds Neuro: Cranial nerves: Yes Equal, round and reactive pupils present Speech: normal speech Motor exam (neuro): 5/5 motor strength present throughout Sensory Exam: normal sensation Other: A&O x4 Extrem: General: normal to inspection Psych: Mental Status: mental status grossly normal Affect: normal affect Other: Good insight and judgment, very pleasant Objective Data Vital Signs Vital Signs: Vital Signs - 24 hr 10/22/24 16:30 10/22/24 16:30 10/22/24 16:45 Temperature Pulse Rate 66 Pulse Rate [Apical Monitor] 66 62 Respiratory Rate 12 Blood Pressure 134/76 Pulse Oximetry 97 Oxygen Delivery Room Air 10/22/24 16:45 10/22/24 17:00 10/22/24 17:00 Temperature Pulse Rate 62 58 L Pulse Rate [Apical Monitor] 58 L Respiratory Rate 18 18 Blood Pressure 137/73 138/72 Pulse Oximetry 97 98 Oxygen Delivery Room Air Room Air 10/22/24 17:15 10/22/24 17:15 10/22/24 17:30 Temperature Pulse Rate 58 L Pulse Rate [Apical Monitor] 58 L 61 Respiratory Rate 18 Blood Pressure 137/80 Pulse Oximetry 98 Oxygen Delivery Room Air 10/22/24 17:30 10/22/24 17:45 10/22/24 17:45 Temperature Pulse Rate 61 64 Pulse Rate [Apical Monitor] 64 Respiratory Rate 18 18 Blood Pressure 168/73 H 145/67 H Pulse Oximetry 98 99 Oxygen Delivery Room Air Room Air 10/22/24 18:00 10/22/24 18:00 10/22/24 18:00 Temperature Pulse Rate 63 70 Pulse Rate [Apical Monitor] 63 Respiratory Rate 18 Blood Pressure 128/67 Pulse Oximetry 99 Oxygen Delivery Room Air 10/22/24 18:15 10/22/24 18:15 10/22/24 19:00 Temperature 36.6 C Pulse Rate 70 65 Pulse Rate [Apical Monitor] 70 Respiratory Rate 18 16 Blood Pressure 128/50 L 120/60 Pulse Oximetry 99 99 Oxygen Delivery 10/22/24 19:41 10/22/24 20:00 10/22/24 20:00 Temperature 36.6 C Pulse Rate 64 68 75 Pulse Rate [Apical Monitor] 68 Respiratory Rate 18 17 Blood Pressure 118/65 118/65 Pulse Oximetry 99 97 100 Oxygen Delivery Room Air 10/22/24 20:00 10/22/24 20:41 10/22/24 22:00 Temperature 36.6 C Pulse Rate 68 67 61 Pulse Rate [Apical Monitor] 68 Respiratory Rate 18 Blood Pressure 120/68 Pulse Oximetry 98 Oxygen Delivery 10/23/24 00:00 10/23/24 00:00 10/23/24 00:00 Temperature 36.6 C Pulse Rate 57 L 59 L 58 L Pulse Rate [Apical Monitor] Respiratory Rate 17 Blood Pressure 133/63 Pulse Oximetry 100 99 Oxygen Delivery Room Air 10/23/24 01:54 10/23/24 03:10 10/23/24 03:11 Temperature Pulse Rate 64 64 64 Pulse Rate [Apical Monitor] Respiratory Rate 16 Blood Pressure 128/65 Pulse Oximetry 100 99 Oxygen Delivery Room Air 10/23/24 04:00 10/23/24 06:00 10/23/24 08:00 Temperature 36.5 C Pulse Rate 59 L 63 62 Pulse Rate [Apical Monitor] Respiratory Rate 16 Blood Pressure 141/84 H Pulse Oximetry 97 Oxygen Delivery 10/23/24 08:00 10/23/24 08:00 10/23/24 10:00 Temperature Pulse Rate 62 64 66 Pulse Rate [Apical Monitor] Respiratory Rate 16 Blood Pressure Pulse Oximetry 97 Oxygen Delivery Room Air 10/23/24 11:59 10/23/24 12:00 10/23/24 12:00 Temperature 36.5 C Pulse Rate 67 62 69 Pulse Rate [Apical Monitor] Respiratory Rate 16 16 Blood Pressure 134/51 L Pulse Oximetry 99 97 Oxygen Delivery Room Air Intake/Output Intake/Output: Intake & Output 10/20/24 10/21/24 10/22/24 10/23/24 23:59 23:59 23:59 23:59 Intake Total 920 930 840 Output Total 693 063 4505 Balance 120 230 -1460 Meds/Results Medications: Active Medications Generic Name Dose Route Start Last Admin Trade Name Laithq PRN Reason Stop Dose Admin Acetaminophen 650 mg 10/21/24 14:03 Acetaminophen 325 Mg Tablet PO Q4H PRN Mild Pain (1-3) or Fever Amlodipine Besylate 5 mg 10/23/24 09:00 10/23/24 10:42 Amlodipine Besylate 5 Mg Tablet PO 5 mg QAM DAMIEN Administration Ascorbic Acid 1,000 mg 10/22/24 09:00 10/23/24 10:24 Ascorbic Acid 500 Mg Tablet PO 1,000 mg DAILY DAMIEN Administration Aspirin 81 mg 10/22/24 09:00 10/23/24 10:25 Aspirin 81 Mg Enteric Tablet PO 81 mg QAM DAMIEN Administration Atorvastatin Calcium 40 mg 10/22/24 09:00 10/23/24 10:25 Atorvastatin 40 Mg Tablet PO 40 mg DAILY DAMIEN Administration Clopidogrel Bisulfate 75 mg 10/23/24 09:00 10/23/24 10:25 Clopidogrel Bisulfate 75 Mg Tablet PO 75 mg QAM DAMIEN Administration Fish Oil 1 gm 10/22/24 09:00 10/23/24 10:24 [place] 3 Polyunsat Fatty Acids 1 Gm Cap PO 1 gm DAILY DAMIEN Administration Levothyroxine Sodium 112 mcg 10/22/24 06:30 10/23/24 05:45 Levothyroxine Sodium 112 Mcg Tablet PO 112 mcg DAILY@0630 DAMIEN Administration Loratadine 10 mg 10/22/24 09:00 10/23/24 10:25 Loratadine 10 Mg Tablet PO 10 mg QAM DAMIEN Administration Melatonin 5 mg 10/21/24 23:00 10/22/24 22:31 Melatonin 5 Mg Tablet PO 5 mg HS DAMIEN Administration Multivitamins/Calcium 1 tablet 10/22/24 09:00 10/23/24 10:25 Therapeutic Multivitamins/Minerals Tab (*Bkc) PO 1 tablet DAILY DAMIEN Administration Nitroglycerin 0.4 mg 10/21/24 14:21 Nitroglycerin Sl 0.4 Mg Tablet SUBLINGUAL Q5MIN PRN Chest Pain Ondansetron HCl 4 mg 10/21/24 14:03 Ondansetron Inj 4 Mg/2 Ml Vial IV PUSH Q4H PRN Nausea Pantoprazole Sodium 40 mg 10/22/24 09:00 10/23/24 10:25 Pantoprazole 40 Mg Tablet PO 40 mg QAM DAMIEN Administration Perflutren Lipid Microsphere 0 ml 10/22/24 15:25 Perflutren Lipid Microspheres 1.5 Ml Vial Diluted To 10 Ml Total Volume IV PUSH 10/25/24 15:25 ONCE PRN adequate visualization Protocol Radiology Results: ITS Impressions Chest X-Ray 10/21/24 12:51 IMPRESSION: No acute cardiopulmonary pathology.
== END 2024-10-23 16:58 | disposition home or self-care (01) | DRG 282 ==
LOC: ANHED 14:03 → ANHIMU 15:01
PROVIDERS: Emergency Medicine; Internal Medicine Interventional Cardiology; Student in an Organized Health Care Education/Training Program; Admitting Provider Internal Medicine; Emergency Provider Student in an Organized Health Care Education/Training Program; Visit Provider Internal Medicine
PROC: 4A023N7 Measurement of Cardiac Sampling and Pressure, Left Heart, Percutaneous Approach (ICD-10-PCS; CPT 93452; principal; 2024-10-22 12:30)
DX: I21.4 Non-ST elevation (NSTEMI) myocardial infarction (principal); E03.9 Hypothyroidism, unspecified; E78.5 Hyperlipidemia, unspecified; I10 Essential (primary) hypertension; K21.9 Gastro-esophageal reflux disease without esophagitis; Z79.82 Long term (current) use of aspirin; Z85.828 Personal history of other malignant neoplasm of skin; Z87.891 Personal history of nicotine dependence
CPT/HCPCS: 36415; 71046; 80053; 80061; 83036; 83690; 84484; 85025; 85610; 85730; 93005; 93306; 93458; 96372; 96374; 99291; A9270; C1769; C1887; C1894; J1644; J1650; J2003; J2250; J2305; J3010; J7030; J7040